=== PATIENT | female | born 1945 | race Caucasian/White ===

== ENCOUNTER 2020-04-20 07:20 | Outpatient (REF) | payer MEDICARE, SELFPAY ==
[2020-04-20 14:11] LABS: Alanine Aminotransferase 21 U/L (0-31); Albumin Level 4.4 g/dL (3.5-5.0); Alkaline Phosphatase 90 U/L (39-117); Anion Gap 11 (12-20); Aspartate Amino Transferase 18 U/L (5-31); Bilirubin Total 0.6 mg/dL (0.0-1.0); Blood Urea Nitrogen 21 mg/dL (9-16); Calcium 9.3 mg/dL (8.4-10.2); Carbon Dioxide 30 mmol/L (22-29); Chloride 105 mmol/L (96-108); Cholesterol 212 mg/dL; Estimated Glomerular Filt Rate > 60; Glucose Fasting 95 mg/dL (60-99); HDL Cholesterol 65 mg/dL; LDL Cholesterol Calculated 128 mg/dl; Potassium 4.5 mmol/l (3.3-5.1); Sodium 141 mmol/L (135-145); Total Protein 6.5 g/dL (6.5-8.0); Triglycerides 97 mg/dL
[2020-04-20 14:35] LABS: Vitamin D 25-OH Total 37.6 ng/mL (>30)
== END 2020-04-20 07:21 | disposition home or self-care (01) ==
LOC: HO.HMGCLDS 07:20
PROVIDERS: PCP Internal Medicine; Visit Provider Internal Medicine
DX: Z00.01 Encounter for general adult medical examination with abnormal findings (principal)
CPT/HCPCS: 80053; 80061; 82306

== ENCOUNTER 2020-07-25 09:50 | Outpatient (REF) | payer MEDICARE, SELFPAY | END 2020-07-25 09:51 | disposition home or self-care (01) | LOC: HO.LAB 09:50 | PROVIDERS: Visit Provider Nurse Practitioner Family | DX: J01.90 Acute sinusitis, unspecified (principal); Z20.822 Contact with and (suspected) exposure to COVID-19 | CPT/HCPCS: 36415; U0003; U0005 ==

== ENCOUNTER → 2020-10-19 10:20 | Outpatient (REF) | payer MEDICARE, SELFPAY ==
--- NOTE | 2020-10-19 10:32 | ECG_ITS ---
Test Reason : PREOP Blood Pressure : / mmHG Vent. Rate : 088 BPM Atrial Rate : 088 BPM P-R Int : 154 ms QRS Dur : 104 ms QT Int : 360 ms P-R-T Axes : 075 -29 035 degrees QTc Int : 435 ms Normal sinus rhythm Minimal voltage criteria for LVH, may be normal variant Borderline ECG No previous ECGs available Referred By: Luann Chapman Electronically Signed By:MARISA DUMONT
== END ==
LOC: HO.CARD 10:20
PROVIDERS: PCP Internal Medicine; Visit Provider Internal Medicine
DX: Z01.818 Encounter for other preprocedural examination (principal)
CPT/HCPCS: 93005; Q9957

== ENCOUNTER 2020-10-20 08:41 | Outpatient (REF) | payer MEDICARE, SELFPAY ==
[2020-10-20 09:11] LABS: MANUAL DIFF FLAG NO
[2020-10-20 09:18] LABS: Basophils Absolute Auto 0.1 X10*3/uL (0.0-0.2); Basophils Percent Auto 1.1 % (0-2); Eosinophils Absolute Auto 0.1 X10*3/uL (0.0-0.4); Eosinophils Percent Auto 1.3 % (0-4); Hematocrit 43.3 % (37-47); Hemoglobin 13.9 g/dl (12.0-16.0); Imm Gran Abs Auto 0.06 X10*3/uL (0.00-0.03); Imm Gran Pct Auto 0.8 % (0.0-0.4); Lymphocytes Absolute Auto 2.2 X10*3/uL (1.2-4.9); Lymphocytes Percent Auto 29.6 % (20-40); Mean Corpuscular HGB Conc 32.1 g/dl (31.0-35.0); Mean Corpuscular Hemoglobin 31.2 pg (27.0-33.0); Mean Corpuscular Volume 97.1 fL (80-98); Mean Platelet Volume 9.9 fL (9.4-12.3); Monocytes Absolute Auto 0.5 X10*3/uL (0.1-1.2); Monocytes Percent Auto 6.5 % (2-11); Neutrophils Absolute Auto 4.6 X10*3/uL (2.0-8.3); Neutrophils Percent Auto 60.7 % (45-73); Platelet Count 337 X10*3/uL (160-400); Red Blood Count 4.46 X10*6/uL (4.20-5.50); Red Cell Distribution Width 14.5 % (11.0-16.0); White Blood Count 7.6 X10*3/uL (4.8-10.8)
[2020-10-20 09:41] LABS: Anion Gap 10 (12-20); Blood Urea Nitrogen 20 mg/dL (9-16); Calcium 9.9 mg/dL (8.4-10.2); Carbon Dioxide 30 mmol/L (22-29); Chloride 106 mmol/L (96-108); Estimated Glomerular Filt Rate > 60; Glucose Fasting 95 mg/dL (60-99); Potassium 4.1 mmol/L (3.3-5.1); Sodium 142 mmol/L (135-145)
== END 2020-10-20 08:42 | disposition home or self-care (01) ==
LOC: HO.LAB 08:41
PROVIDERS: PCP Internal Medicine; Visit Provider Internal Medicine
DX: Z01.818 Encounter for other preprocedural examination (principal); I10 Essential (primary) hypertension
CPT/HCPCS: 36415; 80048; 85025

== ENCOUNTER 2021-03-14 12:53 | Outpatient (REF) | payer MEDICARE, SELFPAY ==
--- NOTE | ~2021-03-14 | MM_ITS ---
EXAMINATION: MM SCREENING DIGITAL BREAST TOMOSYNTHESIS, BILATERAL CLINICAL INFORMATION: Screening. Asymptomatic. The lifetime risk of breast cancer based on the Tyrer-Cuzick Model is 2%. COMPARISON: Mammography: 02/27/2020, 09/23/2018, 09/12/2017 TECHNIQUE: Digital breast tomosynthesis is performed in both the craniocaudal and mediolateral oblique views along with computer-aided detection (CAD). Synthesized 2D images are generated from the tomosynthesis. FINDINGS: There are scattered areas of fibroglandular density (ACR BI-RADS breast composition Category b). There are no significant masses, abnormal calcifications, or other abnormalities. There are incidental small bilateral intramammary nodes upper outer quadrants. The axilla and skin contours are unremarkable. No significant changes. MM/MM tomosynthesis screening BI IMPRESSION: No mammographic evidence of malignancy. ASSESSMENT: BI-RADS 2: Benign RECOMMENDATION: Routine annual mammography screening. This patient's information was entered into a reminder system with a target due date for their next mammogram.
== END 2021-03-14 12:54 | disposition home or self-care (01) ==
LOC: HO.MAMMO 12:53
PROVIDERS: PCP Internal Medicine; Visit Provider Internal Medicine
DX: Z12.31 Encounter for screening mammogram for malignant neoplasm of breast (principal)
CPT/HCPCS: 77063; 77067

== ENCOUNTER 2021-10-15 08:09 | Outpatient (REF) | payer MEDICARE, SELFPAY ==
[2021-10-15 08:26] LABS: MANUAL DIFF FLAG NO
[2021-10-15 08:53] LABS: Basophils Absolute Auto 0.1 X10*3/uL (0.0-0.2); Basophils Percent Auto 1.2 % (0-2); Eosinophils Absolute Auto 0.2 X10*3/uL (0.0-0.4); Eosinophils Percent Auto 2.6 % (0-4); Hematocrit 41.2 % (37.0-47.0); Hemoglobin 13.4 g/dl (12.0-16.0); Imm Gran Abs Auto 0.02 X10*3/uL (0.00-0.03); Imm Gran Pct Auto 0.3 % (0.0-0.4); Lymphocytes Absolute Auto 2.2 X10*3/uL (1.2-4.9); Lymphocytes Percent Auto 32.5 % (20-40); Mean Corpuscular HGB Conc 32.5 g/dl (31.0-35.0); Mean Corpuscular Hemoglobin 32.4 pg (27.0-33.0); Mean Corpuscular Volume 99.8 fL (80.0-98.0); Mean Platelet Volume 10.2 fL (9.4-12.3); Monocytes Absolute Auto 0.5 X10*3/uL (0.1-1.2); Monocytes Percent Auto 7.1 % (2-11); Neutrophils Absolute Auto 3.7 x10*3/uL (2.0-8.3); Neutrophils Percent Auto 56.3 % (45-73); Platelet Count 333 X10*3/uL (160-400); Red Blood Count 4.13 X10*6/uL (4.20-5.50); Red Cell Distribution Width 14.7 % (11.0-16.0); White Blood Count 6.6 X10*3/uL (4.8-10.8)
[2021-10-15 09:25] LABS: Alanine Aminotransferase 17 U/L (0-31); Anion Gap 10 (12-20); Aspartate Amino Transferase 14 U/L (5-31); Blood Urea Nitrogen 22 mg/dL (9-16); Calcium 10.4 mg/dL (8.4-10.2); Carbon Dioxide 29 mmol/L (22-29); Chloride 107 mmol/L (96-108); Cholesterol 198 mg/dL; Estimated Glomerular Filt Rate > 60; Glucose Fasting 93 mg/dL (60-99); HDL Cholesterol 56 mg/dL; LDL Cholesterol Calculated 123 mg/dl; Potassium 4.1 mmol/L (3.3-5.1); Sodium 142 mmol/L (135-145); Triglycerides 97 mg/dL
[2021-10-15 09:59] LABS: Vitamin D 25-OH Total 47.2 ng/mL (>30)
== END 2021-10-15 08:10 | disposition home or self-care (01) ==
LOC: HO.LAB 08:09
PROVIDERS: PCP Internal Medicine; Visit Provider Internal Medicine
DX: Z00.01 Encounter for general adult medical examination with abnormal findings (principal); N95.9 Unspecified menopausal and perimenopausal disorder; M85.852 Other specified disorders of bone density and structure, left thigh
CPT/HCPCS: 36415; 80048; 80061; 82306; 84450; 84460; 85025

== ENCOUNTER → 2022-01-31 09:26 | Outpatient (BNVA) | payer MEDICARE, SELFPAY | PROVIDERS: PCP Internal Medicine; Referring Provider Internal Medicine; Visit Provider Internal Medicine Cardiovascular Disease | DX: R07.9 Chest pain, unspecified (principal) | CPT/HCPCS: 99202 ==

== ENCOUNTER → 2022-02-06 10:09 | Outpatient (REF) | payer MEDICARE, SELFPAY ==
--- NOTE | 2022-02-06 10:12 | CA_ITS ---
Transthoracic Echocardiogram Patient (Last, First, Middle): Jewell Charles E Gender: Female Date of : 1945 Age: 76 Procedure Date: 02/06/2022 Procedure Type: Transthoracic Echocardiogram Location: OP Height: 154.94 cm Weight: 63.5 kg BSA: 1.62 m2 Heart Rate: bpm BP: 110 / 76 mmHg Administrator: TO Referring MD: Ruddy Trammell MD Symptoms: R07.9 - Chest pain, unspecified Study Quality: Adequate ECG Rhythm: Sinus Conclusions: - The left ventricular systolic function is mildly decreased. The calculated ejection fraction is 48% by biplane method. - There is mild global hypokinesis. - The mid inferoseptal segment is hypokinetic. - No obvious valvular pathology seen on this study. Findings Left Ventricle Normal left ventricular cavity size. There is normal left ventricular wall thickness. The left ventricular systolic function is mildly decreased. The calculated ejection fraction is 48% by biplane method. There is mild global hypokinesis. Diastolic function is normal for age. Wall Motion Rest Echo Findings The mid inferoseptal segment is hypokinetic. Right Ventricle Normal right ventricular cavity size and systolic function. Atria Both atria are normal in size. Aortic Valve There is a normal trileaflet aortic valve. There is no aortic valve stenosis. There is no aortic valve regurgitation. Mitral Valve The mitral valve appears normal. There is trace mitral valve regurgitation. There is no mitral valve stenosis. Pulmonic Valve The pulmonic valve is likely normal. Tricuspid Valve Normal tricuspid valve structure. There is trace tricuspid valve regurgitation. The pulmonary artery systolic pressure is normal. Great Vessels The aortic annulus, sinuses of valsalva, and asc aorta are normal in size. Venous The inferior vena cava is normal in size and collapses greater than 50% with inspiration. Pericardium/Pleural There is no evidence of pericardial effusion. Prior Study Comparison No prior study available for comparison. Recommendations, Care & Conclusions No obvious valvular pathology seen on this study. Measurements 2D Linear Measurements IVSd: 1.02 0.6-0.9/0.6-1.0 cm LVIDd: 4.55 3.9-5.3/4.2-5.9 cm LVIDd Index: 2.81 2.4-3.2/2.2-3.1 cm/m2 LVIDs: 3.39 2.0-3.6 cm LVPWd: 0.92 0.7-1.1 cm LA Diam: 3.00 2.7-3.8/3.0-4.0 cm LAIDs Index: 1.85 1.5-2.3 cm/m2 LV Mass: 186.72 67-162/88-224 g LV Mass Index: 115.26 43-95/49-115 g/m2 LVOT Diam: 2.20 3.0+(-)1.3 cm 2D Systolic Function EF 4C: 45.90 >55% EF 2C: 50.60 >55% EF BiP: 48.30 >55% Mitral Valve MV Pk E: 0.47 MV PK A: 0.76 MV Decel Time: 195.00 E/A: 0.60 E'Lateral: 6.64 E'Medial: 5.33 E/E' Med: 8.80 E/E' Lat: 7.10 PHT: 57.00 MVA PHT: 3.86 Decel Fisher: 2.42 Aortic Valve AoV Pk Portillo: 1.10 AoV Mn Portillo: 0.80 AoV VTI: 0.26 AoV Pk Grad: 5.00 Aov Mn Grad: 3.00 ELADIO Cont.VTI: 2.59 LVOT LVOT Pk Portillo: 0.76 LVOT Mn Portillo: 0.51 LVOT VTI: 0.18 LVOT Pk Grad: 2.00 LVOT Mn Grad: 1.00 LVOT Diam: 2.20 LVOT Area: 3.80 Diastolic Function MV Pk E: 0.47 MV Pk A: 0.76 E/A: 0.60 E'Medial: 5.33 E/E' Med: 8.80 E' Laterial: 6.64 E/E' Lat: 7.10 Right Ventricle TAPSE (mm): 20.00 TVS' Portillo: 10.20 Tricuspid Valve TR Pk Portillo: 2.31 TR Pk Grad: 21.00 RA Press: 3.00 Great Vessels Aorta Sinus of Valsalva: 3.14 2.0-3.[address] Ridge: 2.74 1.7-3.4 cm Ao Asc: 3.20 2.1-3.4 cm Updated in Other Vendor System with Status of Final Yousuf Pond MD electronically signed on 02/07/2022 12:28:31 PM with status of Final
== END ==
LOC: HO.CARD 10:09
PROVIDERS: PCP Internal Medicine; Visit Provider Internal Medicine Cardiovascular Disease
DX: R07.9 Chest pain, unspecified (principal)
CPT/HCPCS: 93306

== ENCOUNTER → 2022-02-18 09:11 | Outpatient (REF) | payer MEDICARE, SELFPAY ==
--- NOTE | ~2022-02-18 | NM_ITS ---
Lexiscan Myocardial perfusion study Indication: Chest pain, assess for coronary disease and ischemia Technique: The patient was brought in for a Lexiscan perfusion study on 02/18/2022 and was injected 0.4 mg of Lexiscan intravenously. Within a minute of this injection 25 mCi of sestamibi was given intravenously. Images were obtained using the SPECT gamma camera interlaced with the gating device. Images were obtained in supine position. Resting perfusion study was performed on 02/19/2022. Patient was administered 25 mCi of sestamibi intravenously at rest. Images were then obtained in supine position. Total DLP 74mGy-cm. Images were processed with the software and compared side to side in short axis, horizontal long axis and vertical long axis views. Findings: Raw acquisition reviewed. The stress perfusion study showed mildly diminished tracer uptake in the distal part of anteroseptal wall. There is improvement with CT attenuation correction and hence could be from soft tissue attenuation artifact. The gated study shows normal LV systolic function with calculated LVEF of 51%. LV cavity is normal in size. The gated study shows reduced thickening in the distal anteroseptal wall. Resting study shows diminished tracer uptake in the distal inferolateral wall. However there is also adjacent subdiaphragmatic tracer uptake. There is improvement with CT attenuation correction and hence could all be from diaphragmatic attenuation artifact. Gating at rest reveals ejection fraction at 47%; reduced contractility in the distal inferolateral wall. The findings are consistent with mild reversible distal anteroseptal defect. Possibly artifactual. NM/NM elaine perf SPECT rest & str Impression: 1. Myocardial perfusion imaging study shows small reversible distal anteroseptal defect. Probably artifactual. Less likely from small area of ischemia. 2. Gated LVEF is 51% during stress; 47% during rest. Correlate with echocardiogram. 3. Transient ischemic dilatation not present. EKG component of the test reported separately.
--- NOTE | 2022-02-18 09:13 | CA_ITS ---
Acquisition Time: 2022-02-18 09:36:41 Total Exercise Time: 00:02:00 Test Indications: CP Medications: SEE CHART Protocol: LEXISCAN Max HR: 117 BPM 81% of Pred: 143 BPM Max BP: 134/080 mmHG Max Work Load: 1.0 METS Pharmacological stress test with Lexiscan injection, while sitting and kicking her legs, without anginal symptoms, with isolated PVC, with normotensive response to injection, with nondiagnostic EKG for ischemia. In recovery she reported feeling odd in her head and was treated with Aminophylline 75mg IVP to reverse Lexiscan with resolution of symptom. Nuclear images pending. Test reviewed with Dr Mccabe. Referred By: Ruddy Trammell Overread By: ALVARO ANAYA
== END ==
LOC: HO.CARD 09:11
PROVIDERS: PCP Internal Medicine; Visit Provider Internal Medicine Cardiovascular Disease
DX: R07.9 Chest pain, unspecified (principal)
CPT/HCPCS: 78452; 93017; A9500; J0280; J2785

== ENCOUNTER 2022-02-24 09:52 | Outpatient (REF) | payer MEDICARE, SELFPAY ==
[2022-02-24 11:22] LABS: Anion Gap 12 (12-20); Blood Urea Nitrogen 22 mg/dL (9-16); Carbon Dioxide 27 mmol/L (22-29); Chloride 105 mmol/L (96-108); Estimated Glomerular Filt Rate > 60; Glucose Random 93 mg/dL (60-115); Potassium 4.2 mmol/L (3.3-5.1); Sodium 140 mmol/L (135-145)
[2022-02-26 17:36] LABS: Calcium, Ionized 5.6 mg/dL (4.8-5.6)
== END 2022-02-24 09:53 | disposition home or self-care (01) ==
LOC: HO.LAB 09:52
PROVIDERS: PCP Internal Medicine; Visit Provider Internal Medicine Cardiovascular Disease
DX: R07.9 Chest pain, unspecified (principal); E83.52 Hypercalcemia
CPT/HCPCS: 36415; 80048; 82330

== ENCOUNTER 2022-03-20 12:48 | Outpatient (REF) | payer MEDICARE, SELFPAY ==
--- NOTE | ~2022-03-20 | MM_ITS ---
EXAMINATION: MM SCREENING DIGITAL BREAST TOMOSYNTHESIS, BILATERAL CLINICAL INFORMATION: Screening. Asymptomatic. The lifetime risk of breast cancer based on the Tyrer-Cuzick Model is 2%. COMPARISON: Mammography: 03/14/2021, 02/27/2020, 09/23/2018 TECHNIQUE: Digital breast tomosynthesis is performed in both the craniocaudal and mediolateral oblique views along with computer-aided detection (CAD). Synthesized 2D images are generated from the tomosynthesis. FINDINGS: There are scattered areas of fibroglandular density (ACR BI-RADS breast composition Category b). There are no significant masses, abnormal calcifications, or other abnormalities. Parenchymal pattern is similar to prior studies. There is no developing density or architectural abnormality. The axilla and skin contours are unremarkable. No significant changes. MM/MM tomosynthesis screening BI IMPRESSION: No mammographic evidence of malignancy. ASSESSMENT: BI-RADS 1: Negative RECOMMENDATION: Routine annual mammography screening. This patient's information was entered into a reminder system with a target due date for their next mammogram.
--- NOTE | ~2022-03-20 | MM_ITS ---
EXAMINATION: BONE DENSITOMETRY CLINICAL INDICATION: Osteopenia. COMPARISON: Previous BD dated 09/10/2017 and baseline BD dated 10/22/2007. TECHNIQUE: Using a [employer] DXA System (software version: 13.1) manufactured by [employer], dual-energy x-ray absorptiometry was performed of the lumbar spine and left hip. The images are of good technical quality. Summary results are attached. FINDINGS: AP SPINE L1-L4: Current: BMD 1.063 g/cm2, Z-score 0.9, T-score -1.0, normal, 3.9% decrease from previous, 6.3% decrease from baseline (<5% change is not significant). Prior: BMD 1.106 g/cm2. Baseline: BMD 1.134 g/cm2. LEFT FEMUR, NECK: Current: BMD 0.503 g/cm2, Z-score -1.8, T-score -3.8, osteoporosis. Prior: BMD 0.706 g/cm2. Baseline: BMD 0.692 g/cm2. LEFT FEMUR, TOTAL: Current: BMD 0.555 g/cm2, Z-score -1.7, T-score -3.6, osteoporosis, 27.1% decrease from previous, 29.4% decrease from baseline (<5% change is not significant). Prior: BMD 0.761 g/cm2. Baseline: BMD 0.786 g/cm2. IDENTIFIED RISK FACTORS: Early menopause, height loss, history of fracture (adult), hysterectomy, bilateral oophorectomy, low calcium intake, recurrent falls, rheumatoid arthritis, secondary osteoporosis. HISTORY OF FRACTURE: Femur. MEDICATIONS: Calcium, vitamin D. MM/XR DEXA axial skeleton IMPRESSION: 1. DIAGNOSIS: Osteoporosis based on the lowest T-score value of -3.8 in the femoral neck applying World Health Organization criteria. 2. 10-YEAR FRACTURE RISK PREDICTION, FRAX: According to the guidelines, FRAX calculation should only be performed on patients in the osteopenia bone density category. Therefore, FRAX was not performed on this patient. 3. Treatment Recommendations: NOF guidelines recommend consideration for treatment in postmenopausal women and men age 50 and older presenting with the following: -A hip or vertebral (clinical or morphometric) fracture. -T-score less than or equal to -2.5 at the femoral neck or spine after appropriate evaluation to exclude secondary causes. -Low bone mass at the hip or spine and a 10-year fracture probability by FRAX of greater than or equal to 3% for hip fracture or greater than or equal to 20% for major osteoporotic fracture based on the [place] adapted WHO algorithm. 4. Other Recommendations: All treatment decisions require clinical judgment and consideration of individual patient factors, including patient preferences, comorbidities, previous drug use, risk factors not captured in the FRAX model (e.g. frailty, falls, vitamin D deficiency, increased bone turnover, interval significant decline in bone density) and possible under or overestimation of fracture risk by FRAX. Additional medical evaluation for secondary cause of low bone mineral density may be appropriate. FUTURE SCAN RECOMMENDATION: People with diagnosed cases of osteoporosis or at high risk for fracture should have regular bone mineral density tests. For patients eligible for Medicare, routine testing is allowed once every 2 years. The testing frequency can be increased to one year for patients who have rapidly progressing disease, those who are receiving or discontinuing medical therapy to restore bone mass, or have additional risk factors.
== END 2022-03-20 12:49 | disposition home or self-care (01) ==
LOC: HO.MAMMO 12:48
PROVIDERS: Visit Provider Internal Medicine
DX: Z12.31 Encounter for screening mammogram for malignant neoplasm of breast (principal); Z13.820 Encounter for screening for osteoporosis; M85.852 Other specified disorders of bone density and structure, left thigh; Z78.0 Asymptomatic menopausal state
CPT/HCPCS: 77063; 77067; 77080

== ENCOUNTER 2022-03-20 13:03 | Outpatient (REF) | payer MEDICARE, SELFPAY | END 2022-03-20 13:04 | disposition home or self-care (01) | LOC: HO.MAMMO 13:03 | PROVIDERS: Visit Provider Internal Medicine | DX: Z13.89 Encounter for screening for other disorder (principal) ==

== ENCOUNTER → 2022-04-08 11:02 | Outpatient (BNVA) | payer MEDICARE, SELFPAY | PROVIDERS: PCP Internal Medicine; Visit Provider Student in an Organized Health Care Education/Training Program | DX: M15.9 Polyosteoarthritis, unspecified (principal); M80.80XD Other osteoporosis with current pathological fracture, unspecified site, subsequent encounter for fracture with routine healing | CPT/HCPCS: 99202 ==

== ENCOUNTER → 2022-04-15 15:31 | Outpatient (BNVA) | payer MEDICARE, SELFPAY | PROVIDERS: PCP Internal Medicine; Visit Provider Internal Medicine Endocrinology, Diabetes & Metabolism | DX: M81.0 Age-related osteoporosis without current pathological fracture (principal) | CPT/HCPCS: 99202 ==

== ENCOUNTER → 2022-04-16 11:31 | Outpatient (BNVA) | payer MEDICARE, SELFPAY | PROVIDERS: PCP Internal Medicine; Visit Provider Internal Medicine Cardiovascular Disease | DX: R07.9 Chest pain, unspecified (principal) | CPT/HCPCS: 99212 ==

== ENCOUNTER 2022-10-09 14:37 | Outpatient (REF) | payer MEDICARE, SELFPAY ==
[2022-10-09 16:02] LABS: Phosphorus 3.2 mg/dL (2.7-4.5)
[2022-10-09 16:21] LABS: Free T4 (Free Thyroxine) 0.87 ng/dL (0.71-1.85); Thyroid Stimulating Hormone 0.54 uIU/mL (0.32-4.0)
[2022-10-16 23:18] LABS: Prot Elec - Albumin 4.1 g/dL (3.8-4.8); Prot Elec - Alpha1 0.3 g/dL (0.2-0.3); Prot Elec - Alpha2 0.7 g/dL (0.5-0.9); Prot Elec - Beta 1 0.4 g/dL (0.4-0.6); Prot Elec - Beta 2 0.2 g/dL (0.2-0.5); Prot Elec - Gamma 0.7 g/dL (0.8-1.7); Prot Elec - Total Protein 6.3 g/dL (6.1-8.1)
== END 2022-10-09 14:38 | disposition home or self-care (01) ==
LOC: HO.LAB 14:37
PROVIDERS: PCP Internal Medicine; Visit Provider Internal Medicine Endocrinology, Diabetes & Metabolism
DX: M81.0 Age-related osteoporosis without current pathological fracture (principal); R53.83 Other fatigue
CPT/HCPCS: 84100; 84165; 84439; 84443; 86335

== ENCOUNTER 2022-10-15 12:49 | Outpatient (REF) | payer MEDICARE, SELFPAY ==
[2022-10-15 14:12] LABS: Creatinine, mg/dL 71.34
[2022-10-15 15:13] LABS: Creatinine, 24Hr Urine 0.6 G/Day (1.0-2.0); Total Volume 24 Hour Urine 825 mL
[2022-10-20 16:39] LABS: Calcium, 24 Hr Urine 221 mg/24 h; Calcium/Creatinine Ratio 377 mg/g creat (30-275); Creatinine 24Hr Urine 0.59 g/24 h (0.50-2.15)
== END 2022-10-15 12:50 | disposition home or self-care (01) ==
LOC: HO.LNP 12:49
PROVIDERS: Visit Provider Internal Medicine Endocrinology, Diabetes & Metabolism
DX: M81.0 Age-related osteoporosis without current pathological fracture (principal)
CPT/HCPCS: 82340; 82570

== ENCOUNTER 2022-11-24 07:23 | Day surgery (SDC) | payer MEDICARE, SELFPAY ==
[2022-11-19 12:58] VITALS: BMI 24.5
--- NOTE | 2022-11-21 08:00 | MHC.SHP ---
Pre-Procedural Eval Section A Date of Service: 11/21/22 The patient is an INPATIENT: No Changes since office visit: No Cold of Flu in the past 2 weeks, No New Medical Problems, No Changes in Medication and No Patient answered all questions The History & Physical has been completed within 30 days and I have reviewed it.: Yes Section B Chief Complaint: Age-related nuclear cataract, right eye Allergies: Allergies Allergy/AdvReac Type Severity Reaction Status Date / Time No Known Allergies Allergy Verified 11/19/22 13:33 [No Known Allergies*] Plan Diagnosis/Plan: Unchanged I have reviewed the history and physical and performed a pertinent physical examination on my patient. No changes have occurred unless specified. Time Spent With Patient Time: Total time managing care of this patient today ____ minutes.
--- NOTE | 2022-11-21 09:02 | HO.ANESPROP2 ---
Documented by User: Blanka Huynh NP 11/21/22 09:03 HPI - Anesthesia Eval Consult details Narrative: 77yo F for RightRight Cataract Multifocal with IOL Insertion PCP cleared No previous cataract on record PMFSH Active Problems Active Problems: All Active Problems (Updated 11/19/22 @ 13:43 by Luann Chapman MD) Hemorrhoids (Acute) Osteoporosis with fracture (Acute) Generalized osteoarthritis (Acute) Urge incontinence of urine (Acute) Diverticulosis (Acute) Varicose vein of leg (Acute) Past Medical History Medical History (Updated 11/19/22 @ 13:43 by Luann Chapman MD) Diverticulosis Femoral distal fracture Hemorrhoids Osteoarthritis Polyarthralgia Trigger finger Urge incontinence of urine Varicose vein of leg Family History Family History Father Stomach cancer Mother No problems noted. Sister Ovarian cancer Surgical History Surgical History History of appendectomy History of arthroscopy of right knee History of bunionectomy History of surgery History of surgery on lower extremity History of tonsillectomy History of total hysterectomy History of total right knee replacement (TKR) Social History Social History Household Members: None Housing: House Are you a primary body care manager to a significant other at home: No Do you presently have visiting nurse or other home services: No Alcohol intake: current Alcohol intake frequency: holidays/special occasions only Patient Tobacco Use Status: Former Tobacco user Quit Date: 40 yrs ago Tobacco use type: Cigarette e-Cigarette/Vaping Use: Never Used Second Hand Smoke Exposure: No Use of substances other than those prescribed or required for medical reasons: No Have you been hit, kicked, punched, or otherwise hurt by someone within the past year? If so, by whom?: No Are you DNR?: No Advance Directives: No Advance Directives Information Provided: Yes Advance Directives on File: No Recently lost weight without trying: No Eating poorly because of decreased appetite: No Nutrition Risks: No Nutritional Risk Poor oral hygiene: No (Full Dentures) service: No Current occupational status: retired Current occupation: Payroll Cognitive needs: No Hearing needs: No Vision needs: Yes Meds Allergies Allergy/AdvReac Type Severity Reaction Status Date / Time No Known Allergies Allergy Verified 11/19/22 13:33 [No Known Allergies*] Home Medications Medication Instructions Recorded Confirmed Last Taken Type acetaminophen 650 mg 650 mg PO Q8H 04/18/20 11/19/22 11/24/22 History tablet,extended release (Tylenol Arthritis Pain) calcium carbonate 600 mg calcium 600 mg PO DAILY 04/18/20 11/19/22 Unknown History (1,500 mg) tablet (Calcium) multivit with 1 tab PO DAILY 04/18/20 11/19/22 Unknown History gwvklgln-[id number]-YO-lutein 8 mg iron-400 mcg-300 mcg tablet (Centrum Silver Women) ascorbic acid (vitamin C) 500 mg 500 mg PO DAILY 01/31/22 11/19/22 Unknown History capsule cholecalciferol (vitamin D3) 25 25 mcg PO DAILY 04/15/22 11/19/22 Unknown History mcg (1,000 unit) capsule diclofenac sodium 1 % topical gel g topical 11/17/22 Unknown History meloxicam 15 mg tablet 15 mg PO DAILY 11/17/22 11/19/22 Unknown History Exam Exam Date and Time: November 21, 2022 09 Height,Weight and Vital Signs: Height 5 ft 2 in Weight 60.781 kg Assessment and Plan Assessment Anesthesia Assessment: Chart Reviewed Documented by User: Geraldine Sierra MD 11/24/22 09:20 [facility] Past Medical History Medical History (Updated 11/19/22 @ 13:43 by Luann Chapman MD) Diverticulosis Femoral distal fracture Hemorrhoids Osteoarthritis Polyarthralgia Trigger finger Urge incontinence of urine Varicose vein of leg Family History Family History Father Stomach cancer Mother No problems noted. Sister Ovarian cancer Family history of problems with anesthesia: No Surgical History Surgical History History of appendectomy History of arthroscopy of right knee History of bunionectomy History of surgery History of surgery on lower extremity History of tonsillectomy History of total hysterectomy History of total right knee replacement (TKR) History of Problems with Anesthesia: No Social History Social History Household Members: None Housing: House Are you a primary body care manager to a significant other at home: No Do you presently have visiting nurse or other home services: No Alcohol intake: current Alcohol intake frequency: holidays/special occasions only Patient Tobacco Use Status: Former Tobacco user Quit Date: 40 yrs ago Tobacco use type: Cigarette e-Cigarette/Vaping Use: Never Used Second Hand Smoke Exposure: No Use of substances other than those prescribed or required for medical reasons: No Have you been hit, kicked, punched, or otherwise hurt by someone within the past year? If so, by whom?: No Are you DNR?: No Advance Directives: No Advance Directives Information Provided: Yes Advance Directives on File: No Recently lost weight without trying: No Eating poorly because of decreased appetite: No Nutrition Risks: No Nutritional Risk Poor oral hygiene: No (Full Dentures) service: No Current occupational status: retired Current occupation: Payroll Cognitive needs: No Hearing needs: No Vision needs: Yes Meds Allergies Allergy/AdvReac Type Severity Reaction Status Date / Time No Known Allergies Allergy Verified 11/19/22 13:33 [No Known Allergies*] Home Medications Medication Instructions Recorded Confirmed Last Taken Type acetaminophen 650 mg 650 mg PO Q8H 04/18/20 11/19/22 11/24/22 History tablet,extended release (Tylenol Arthritis Pain) calcium carbonate 600 mg calcium 600 mg PO DAILY 04/18/20 11/19/22 Unknown History (1,500 mg) tablet (Calcium) multivit with 1 tab PO DAILY 04/18/20 11/19/22 Unknown History tsfbkviy-qumu-AJ-lutein 8 mg iron-400 mcg-300 mcg tablet (Centrum Silver Women) ascorbic acid (vitamin C) 500 mg 500 mg PO DAILY 01/31/22 11/19/22 Unknown History capsule cholecalciferol (vitamin D3) 25 25 mcg PO DAILY 04/15/22 11/19/22 Unknown History mcg (1,000 unit) capsule diclofenac sodium 1 % topical gel g topical 11/17/22 Unknown History meloxicam 15 mg tablet 15 mg PO DAILY 11/17/22 11/19/22 Unknown History Exam Airway Mallampati Class: II (lower implants) TM Dist: >3cm Denture: Upper Heart: rrr Lungs: cya Assessment and Plan Assessment Anesthesia Assessment: Anesthesia Plan Discussed Final Anesthetic Review Family History of Problems with Anesthesia: No History of Problems with Anesthesia: No NPO: Yes ASA Class: II Final Preanesthetic Review: No Changes in Pt Med Stat, Meds/Allgs Chart Reviewed and Consent Obtained/Reviewed Patient Risk: Intermediate Procedure Risk: Intermediate Anesthetic Plan Anesthetic Plan: MAC: Disposition: Standard PACU
[2022-11-24 08:04] VITALS: BP 151/78; PULSE 85; RESP 18; TEMP 36.2; O2SAT 95
[2022-11-24] MEDS: Lactated Ringers 500 ML 50 ML IV (08:17)
[2022-11-24] MEDS: Tetracaine HCl/PF 0.5% Oph Sol 4 ML DROPS 1 DROP EYE-RIGHT (08:18)
[2022-11-24] MEDS: Phenylephrine HCL 2.5% Oph SoL 2 ML BOTTLE 1 DROP EYE-RIGHT ×3 (08:18→08:24)
[2022-11-24] MEDS: Ketorolac Tromethamine 0.5% Op 5 ML DROPS 1 DROP EYE-RIGHT ×3 (08:19→08:25)
[2022-11-24] MEDS: Cyclopentolate 1 % Ophth Sol 2 ML DRPBTL 1 DROP EYE-RIGHT ×3 (08:19→08:25)
[2022-11-24] MEDS: Tropicamide 1 % Ophth Sol 3 ML BTL 1 DROP EYE-RIGHT ×3 (08:22→08:25)
--- NOTE | 2022-11-24 09:09 | HO.PNOPHT ---
Ophthalmology Procedure Procedure Date of Service: 11/24/22 Ophthalmology Viscoelastic: Healabhijeet Duet Dual Pack Pro Ophthalmology Lenses: TECNIS [id number] (22.5) Procedure Notes: PREOPERATIVE DIAGNOSIS: Decreased visual acuity right eye secondary to cataract POSTOPERATIVE DIAGNOSIS: Same PROCEDURE: Right cataract extraction with intraocular lens insertion SURGEON: Bebo Keene M.D. ANESTHESIA: Topical/MAC ESTIMATED BLOOD LOSS: None COMPLICATIONS: None After obtaining informed consent, the patient was brought to the operating room suite and placed in the supine position. After adequate sedation per anesthesia, topical drops of Tetracaine were given to the right eye. The eye was then prepped and draped in the usual sterile fashion. The operating room microscope was then positioned over the operative eye and a lid speculum placed. A paracentesis was created. Viscoelastic was then instilled into the anterior chamber. A three plane incision was then created temporally, utilizing a 2.85 mm keratome. Capsulotomy forceps were then utilized to create a circular tear capsulotomy. Hydrodissection and hydrodelineation were carried out until adequate mobilization of the nucleus occurred. Phacoemulsification was then utilized to remove the dense central nucleus followed by removal of the cortical material utilizing the automated aspiration irrigation unit. Viscoelastic was instilled into the posterior capsular bag followed by placement of a posterior chamber intraocular lens without difficulty. The residual Viscoelastic was then removed utilizing the automated IA machine. The wound was checked and found to be watertight. The patient tolerated the procedure well and the lid speculum was removed. Intracameral injection of Vigamox 0.1 mL followed by a subtenon injection of Kenalog-40 0.2 mL were administered. The patient will be seen in the a.m.
[2022-11-24 09:34] VITALS: BP 161/64; PULSE 81; RESP 18; TEMP 36.1; O2SAT 97
== END 2022-11-24 09:44 | disposition home or self-care (01) ==
PROVIDERS: PCP Internal Medicine; Visit Provider Ophthalmology
PROC: (CPT 66985; principal; 2022-11-24 10:00)
DX: H25.11 Age-related nuclear cataract, right eye (principal); H52.4 Presbyopia; H40.013 Open angle with borderline findings, low risk, bilateral; H18.413 Arcus senilis, bilateral; H35.09 Other intraretinal microvascular abnormalities; M80.051A Age-related osteoporosis with current pathological fracture, right femur, initial encounter for fracture; M15.9 Polyosteoarthritis, unspecified; N39.41 Urge incontinence; Z79.899 Other long term (current) drug therapy; Z96.651 Presence of right artificial knee joint; Z87.891 Personal history of nicotine dependence
CPT/HCPCS: 66984; J2250; J3301; V2632

== ENCOUNTER 2022-12-02 06:00 | Outpatient (REF) | payer MEDICARE, SELFPAY ==
[2022-12-04 11:21] LABS: Creatinine, mg/dL 47.69; Creatinine, mg/dL 47.99
[2022-12-04 12:12] LABS: Creatinine, 24Hr Urine 0.6 G/Day (1.0-2.0); Sodium 24 Hr Urine 121.5 mmol/Day (40-220); Total Volume 24 Hour Urine 1350 mL
[2022-12-04 12:13] LABS: Creatinine, 24Hr Urine 0.6 G/Day (1.0-2.0); Total Volume 24 Hour Urine 1350 mL
[2022-12-06 17:08] LABS: Calcium, 24 Hr Urine 197 mg/24 h; Calcium/Creatinine Ratio 292 mg/g creat (30-275); Creatinine 24Hr Urine 0.68 g/24 h (0.50-2.15)
== END 2022-12-02 06:01 | disposition home or self-care (01) ==
LOC: HO.LNP 06:00
PROVIDERS: Visit Provider Internal Medicine Endocrinology, Diabetes & Metabolism
DX: M80.051A Age-related osteoporosis with current pathological fracture, right femur, initial encounter for fracture (principal)
CPT/HCPCS: 82340; 82570; 84300

== ENCOUNTER 2022-12-08 06:42 | Day surgery (SDC) | payer MEDICARE, SELFPAY ==
[2022-11-19 13:03] VITALS: BMI 24.5
--- NOTE | 2022-12-04 14:45 | P.CONAN_ITS ---
HPI - Anesthesia Eval Consult details Narrative: 77yo F for Left Cataract Multifocal with IOL Insertion PCP cleared Right eye 11/24/22 with MAC: midaz 1 PMFSH Active Problems Active Problems: All Active Problems (Updated 11/19/22 @ 13:43 by Luann Chapman MD) Hemorrhoids (Acute) Osteoporosis with fracture (Acute) Generalized osteoarthritis (Acute) Urge incontinence of urine (Acute) Diverticulosis (Acute) Varicose vein of leg (Acute) Past Medical History Medical History (Updated 11/19/22 @ 13:43 by Luann Chapman MD) Diverticulosis Femoral distal fracture Hemorrhoids Osteoarthritis Polyarthralgia Trigger finger Urge incontinence of urine Varicose vein of leg Family History Family History Father Stomach cancer Mother No problems noted. Sister Ovarian cancer Family history of problems with anesthesia: No Surgical History Surgical History History of appendectomy History of arthroscopy of right knee History of bunionectomy History of surgery History of surgery on lower extremity History of tonsillectomy History of total hysterectomy History of total right knee replacement (TKR) History of Problems with Anesthesia: No Social History Social History Household Members: None Housing: House Are you a primary associate director career services to a significant other at home: No Do you presently have visiting nurse or other home services: No Alcohol intake: current Alcohol intake frequency: holidays/special occasions only Patient Tobacco Use Status: Former Tobacco user Quit Date: 40 yrs ago Tobacco use type: Cigarette e-Cigarette/Vaping Use: Never Used Second Hand Smoke Exposure: No Use of substances other than those prescribed or required for medical reasons: No Have you been hit, kicked, punched, or otherwise hurt by someone within the past year? If so, by whom?: No Are you DNR?: No Advance Directives: No Advance Directives Information Provided: Yes Advance Directives on File: No Recently lost weight without trying: No Eating poorly because of decreased appetite: No Nutrition Risks: No Nutritional Risk Poor oral hygiene: No (Full dentures) service: No Current occupational status: retired Current occupation: Payroll Cognitive needs: No Hearing needs: No Vision needs: Yes Meds Allergies Allergy/AdvReac Type Severity Reaction Status Date / Time No Known Allergies Allergy Verified 11/19/22 13:33 [No Known Allergies*] Home Medications Medication Instructions Recorded Confirmed Last Taken Type acetaminophen 650 mg 650 mg PO Q8H 04/18/20 11/19/22 12/08/22 History tablet,extended release (Tylenol Arthritis Pain) calcium carbonate 600 mg calcium 600 mg PO DAILY 04/18/20 11/19/22 Unknown History (1,500 mg) tablet (Calcium) multivit with 1 tab PO DAILY 04/18/20 11/19/22 Unknown History ucvxqzvf-uzsk-OT-lutein 8 mg iron-400 mcg-300 mcg tablet (Centrum Silver Women) ascorbic acid (vitamin C) 500 mg 500 mg PO DAILY 01/31/22 11/19/22 Unknown History capsule cholecalciferol (vitamin D3) 25 25 mcg PO DAILY 04/15/22 11/19/22 Unknown History mcg (1,000 unit) capsule diclofenac sodium 1 % topical gel g topical 11/17/22 Unknown History meloxicam 15 mg tablet 15 mg PO DAILY 11/17/22 11/19/22 Unknown History Exam Exam Date and Time: December 04, 2022 1445 Height,Weight and Vital Signs: Height 5 ft 2 in Weight 60.781 kg Assessment and Plan Assessment Anesthesia Assessment: Chart Reviewed Final Anesthetic Review Family History of Problems with Anesthesia: No History of Problems with Anesthesia: No
--- NOTE | 2022-12-05 08:25 | MHC.SHP ---
Pre-Procedural Eval Section A Date of Service: 12/05/22 The patient is an INPATIENT: No Changes since office visit: No Cold of Flu in the past 2 weeks, No New Medical Problems, No Changes in Medication and No Patient answered all questions The History & Physical has been completed within 30 days and I have reviewed it.: Yes Section B Chief Complaint: Age-related nuclear cataract, left eye Allergies: Allergies Allergy/AdvReac Type Severity Reaction Status Date / Time No Known Allergies Allergy Verified 11/19/22 13:33 [No Known Allergies*] Plan Diagnosis/Plan: Unchanged I have reviewed the history and physical and performed a pertinent physical examination on my patient. No changes have occurred unless specified. Time Spent With Patient Time: Total time managing care of this patient today ____ minutes.
[2022-12-08 06:59] VITALS: BP 161/105; PULSE 91; RESP 20; TEMP 35.8; O2SAT 96
[2022-12-08 07:05] VITALS: BP 159/83
[2022-12-08] MEDS: Lactated Ringers 500 ML 50 ML IV (07:05)
[2022-12-08] MEDS: Tetracaine HCl/PF 0.5% Oph Sol 4 ML DROPS 1 DROP EYE-LEFT (07:06)
[2022-12-08] MEDS: Cyclopentolate 1 % Ophth Sol 2 ML DRPBTL 1 DROP EYE-LEFT ×3 (07:06→07:09)
[2022-12-08] MEDS: Tropicamide 1 % Ophth Sol 3 ML BTL 1 DROP EYE-LEFT ×3 (07:06→07:08)
[2022-12-08] MEDS: Ketorolac Tromethamine 0.5% Op 5 ML DROPS 1 DROP EYE-LEFT ×3 (07:07→07:09)
[2022-12-08] MEDS: Phenylephrine HCL 2.5% Oph SoL 2 ML BOTTLE 1 DROP EYE-LEFT ×3 (07:07→07:09)
--- NOTE | 2022-12-08 08:16 | HO.PNOPHT ---
Ophthalmology Procedure Procedure Date of Service: 12/08/22 Ophthalmology Viscoelastic: Healabhijeet Nyet Dual Pack Pro Ophthalmology Lenses: TECSHAHRIAR [id number] (23) Procedure Notes: PREOPERATIVE DIAGNOSIS: Decreased visual acuity left eye secondary to cataract POSTOPERATIVE DIAGNOSIS: Same PROCEDURE: Left cataract extraction with intraocular lens insertion SURGEON: Bebo Keene M.D. ANESTHESIA: Topical/MAC ESTIMATED BLOOD LOSS: None COMPLICATIONS: None After obtaining informed consent, the patient was brought to the operation room suite and placed in the supine position. After adequate sedation per anesthesia, topical drops of Tetracaine were given to the left eye. The eye was then prepped and draped in the usual sterile fashion. The operating room microscope was then positioned over the operative eye and a lid speculum placed. A paracentesis was created. Viscoelastic was then instilled into the anterior chamber. A three plane incision was then created temporally, utilizing a 2.85 mm keratome. Capsulotomy forceps were then utilized to create a circular tear capsulotomy. Hydrodissection and hydrodelineation were carried out until adequate mobilization of the nucleus occurred. Phacoemulsification was then utilized to remove the dense central nucleus followed by removal of the cortical material utilizing the automated aspiration irrigation unit. Viscoat elastic was instilled into the posterior capsular bag followed by placement of a posterior chamber intraocular lens without difficulty. The residual Viscoat elastic was then removed utilizing the automated IA machine. The wound was check and found to be watertight. The patient tolerated the procedure well and the lid speculum was removed. Intracameral injection of Vigamox 0.1 mL followed by a subtenon injection of Kenalog-40 0.2 mL were administered. The patient will be seen in the a.m.
[2022-12-08 08:45] VITALS: BP 145/74; PULSE 86; RESP 17; TEMP 36.9; O2SAT 97
== END 2022-12-08 08:50 | disposition home or self-care (01) ==
PROVIDERS: PCP Internal Medicine; Visit Provider Ophthalmology
PROC: (CPT 66985; principal; 2022-12-08 08:20)
DX: H25.12 Age-related nuclear cataract, left eye (principal); H52.4 Presbyopia; H40.013 Open angle with borderline findings, low risk, bilateral; H18.413 Arcus senilis, bilateral; H35.09 Other intraretinal microvascular abnormalities; M15.9 Polyosteoarthritis, unspecified; M80.851A Other osteoporosis with current pathological fracture, right femur, initial encounter for fracture; Z79.899 Other long term (current) drug therapy; Z96.651 Presence of right artificial knee joint; Z98.890 Other specified postprocedural states; Z87.891 Personal history of nicotine dependence
CPT/HCPCS: 66984; J2250; J3301; V2632

== ENCOUNTER → 2022-12-10 15:55 | Outpatient (BNVA) | payer MEDICARE, SELFPAY | PROVIDERS: PCP Internal Medicine; Visit Provider Internal Medicine Endocrinology, Diabetes & Metabolism | DX: M81.0 Age-related osteoporosis without current pathological fracture (principal); M06.9 Rheumatoid arthritis, unspecified; R29.6 Repeated falls; E83.51 Hypocalcemia; Z90.710 Acquired absence of both cervix and uterus; Z90.722 Acquired absence of ovaries, bilateral; Z78.0 Asymptomatic menopausal state | CPT/HCPCS: 99212 ==

== ENCOUNTER 2023-02-02 10:24 | Outpatient (AMB) | payer MEDICARE, SELFPAY ==
--- NOTE | 2023-02-02 12:55 | MHC.OFFWIV ---
Intake Vital Signs 02/02/23 12:56 Weight 138 lb BP 120/80 Blood Pressure Location Rt brachial Position Sitting Pulse 98 Pulse Source Pulse Oximeter Temp 98.2 F Temp Source Temporal Artery Scan Pulse Oximetry (%) 93 Oxygen Delivery Method Room Air Intake Visit Reasons: EP Cough (masked) Intake Note: Patient here for cold that has been present since thursday, she has been coughing so much that her ribs start to hurt very bad, states ribs hurt more when laying down at night and coughs a lot more. Patient Tobacco Use Status: Former Tobacco user Quit Date: 40 yrs ago Allergies No Known Allergies [No Known Allergies*] Allergy (Verified 02/02/23 13:09) Medication List - Last Reconciled 02/02/23 by Giovanni Pratt MD acetaminophen ER (Tylenol Arthritis Pain) 650 mg PO Q8H ascorbic acid (vitamin C) 500 mg PO DAILY azithromycin take 500 mg today (day 1), then 250 mg for 4 days (days 2-5) PO calcium carbonate (Calcium) 600 mg PO DAILY cholecalciferol (vitamin D3) 25 mcg PO DAILY codeine-guaifenesin 10-100 mg/5 mL 5 mL PO Q6H PRN diclofenac sodium 1% grams topical ergocalciferol (vitamin D2) 1,250 mcg PO QWEEK hydrocortisone 2.5% (Anusol-HC) 1 appl CO BID-QID PRN meloxicam 15 mg PO DAILY erbmkwqt-rec-mcfi-FA-vit K-lut 8 mg iron-400 mcg-50 mcg (Centrum Silver Women) 1 tab PO DAILY oxybutynin chloride ER 10 mg PO DAILY romosozumab-aqqg (Evenity) 210 mg (2.34 mL) subcut .monthly Do you need a note to return to daycare/school/sports/work: No HPI EP Cough (masked) HPI Details Patient presents for a sick visit. Reporting symptoms of sinus congestion, sore throat and difficulty swallowing. Low-grade fever. No family member is sick. No recent travel. Patient reports symptoms of malaise and fatigue. [facility] Medical History (Updated 02/02/23 @ 13:14 by Giovanni Pratt MD) Diverticulosis Femoral distal fracture Hemorrhoids Osteoarthritis Polyarthralgia Trigger finger Urge incontinence of urine Varicose vein of leg Surgical History History of appendectomy History of arthroscopy of right knee History of bunionectomy History of left cataract surgery History of right cataract surgery History of surgery History of surgery on lower extremity History of tonsillectomy History of total hysterectomy History of total right knee replacement (TKR) Family History Father Stomach cancer Mother No problems noted. Sister Ovarian cancer Social History Household Members: None Housing: House Are you a primary youth care professional to a significant other at home: No Do you presently have visiting nurse or other home services: No Alcohol intake: current Alcohol intake frequency: holidays/special occasions only Patient Tobacco Use Status: Former Tobacco user Quit Date: 40 yrs ago Tobacco use type: Cigarette e-Cigarette/Vaping Use: Never Used Second Hand Smoke Exposure: No service: No Current occupational status: retired Current occupation: Payroll Cognitive needs: No Hearing needs: No Vision needs: Yes Physical Exam Vital Signs: Last Vital Signs Temp 98.2 F 02/02/23 12:56 Pulse 98 02/02/23 12:56 BP 120/80 02/02/23 12:56 Pulse Ox 93 02/02/23 12:56 Oxygen Delivery Method Room Air 02/02/23 12:56 Const General: cooperative and healthy appearing Nutritional Appearance: well nourished Orientation/consciousness: patient oriented x3 Limitations: no limitations HEENT Head: Yes normal to inspection Eyes General: appearance normal, both eyes and all related structures Neck Neck: Yes normal visual inspection Chest Chest palpation & inspection: normal palpation of entire chest wall Resp Effort & Inspection: normal respiratory effort Neuro General: patient oriented x3 Assessment & Plan Assessment & Plan (1) Upper respiratory tract infection: Code(s): J06.9 - Acute upper respiratory infection, unspecified Plan: Antibiotics ordered. Increase fluid intake. Tylenol for aches and pains. If symptoms worsen, follow-up here for a recheck. Medications: New azithromycin take 500 mg today (day 1), then 250 mg for 4 days (days 2-5) PO 6 tabs 0RF codeine-guaifenesin 10-100 mg/5 mL 5 mL PO Q6H PRN 120 mL 0RF allergy symptoms Coding Level of Care Code Est Pt Level 3 (24978) Diagnoses Upper respiratory tract infection J06.9
[2023-02-02 12:56] VITALS: BP 120/80; PULSE 98; TEMP 36.8; O2SAT 93
== END 2023-02-02 13:28 | disposition home or self-care (01) ==
PROVIDERS: PCP Internal Medicine; Visit Provider Internal Medicine
DX: J06.9 Acute upper respiratory infection, unspecified (principal)
CPT/HCPCS: 99213

== ENCOUNTER 2023-03-26 10:36 | Outpatient (REF) | payer MEDICARE, SELFPAY | END 2023-03-26 10:37 | disposition home or self-care (01) | LOC: HO.MAMMO 10:36 | PROVIDERS: PCP Internal Medicine; Visit Provider Internal Medicine | DX: Z12.31 Encounter for screening mammogram for malignant neoplasm of breast (principal) | CPT/HCPCS: 77063; 77067 ==

== ENCOUNTER → 2023-03-26 10:45 | Outpatient (BNV) | payer MEDICARE, SELFPAY | PROVIDERS: PCP Internal Medicine; Visit Provider Radiology Diagnostic Radiology | DX: Z12.31 Encounter for screening mammogram for malignant neoplasm of breast (principal) | CPT/HCPCS: 77063; 77067 ==

== ENCOUNTER 2023-09-11 08:48 | Outpatient (AMB) | payer MEDICARE, SELFPAY ==
--- NOTE | 2023-09-11 08:52 | MHC.OFFVIS ---
Intake Vital Signs 09/11/23 08:53 Height 5 ft 1.1 in BMI Reason not done Patient refused/unable BP 112/72 Blood Pressure Location Lt brachial Position Sitting Pulse 72 Intake Visit Reasons: 2 Yr follow up Intake Note: 2 year follow up Color Dipper Required: No Accompanied by: Self / Same As Patient Allergies No Known Allergies [No Known Allergies*] Allergy (Verified 09/11/23 08:54) Medication List - Last Reconciled 09/11/23 by Ruddy Trammell MD acetaminophen ER (Tylenol Arthritis Pain) 650 mg PO Q8H ascorbic acid (vitamin C) 500 mg PO DAILY calcium carbonate (Calcium) 600 mg PO DAILY cholecalciferol (vitamin D3) 25 mcg PO DAILY diclofenac sodium 1% grams topical ergocalciferol (vitamin D2) 1,250 mcg PO QWEEK hydrocortisone 2.5% (Anusol-HC) 1 appl [place] BID-QID PRN meloxicam 15 mg PO DAILY metoprolol succinate ER 50 mg PO BID kszhwass-xzr-aewz-FA-vit K-lut 8 mg iron-400 mcg-50 mcg (Centrum Silver Women) 1 tab PO DAILY oxybutynin chloride ER 10 mg PO DAILY rivaroxaban (Xarelto) 20 mg PO DAILY HPI HPI Comments History of Present Illness Details Jewell was referred here for evaluation after recent hospitalization at [facility] after accidental fall and severe injury to the left lower extremity requiring surgical intervention on her ankle. Since then she has been very limited in activity. However when she ended up going to the hospital she was noted to have significantly elevated blood pressure and new onset atrial fibrillation. This was managed medically and subsequently had an echocardiogram which showed mildly reduced LV ejection fraction with apical and periapical wall motion abnormality. She was then told that she might have had a heart attack. Since then she was started on metoprolol therapy for blood pressure and Xarelto for her paroxysmal atrial fibrillation she has been maintained on the same. She denies any symptoms of palpitation since then. She says a blood pressure is also been well controlled. She continues to take Xarelto on a regular basis. She is now coming here for follow-up to manage these cardiovascular issues. As you may be aware she had a prior coronary CTA which had shown normal coronary angiogram. She also concerned about left lower extremity with edema in the injury limb [facility] Medical History Hemorrhoids Polyarthralgia Trigger finger Femoral distal fracture Urge incontinence of urine Diverticulosis Varicose vein of leg Osteoarthritis Surgical History History of right cataract surgery History of left cataract surgery History of total right knee replacement (TKR) History of surgery on lower extremity History of surgery History of arthroscopy of right knee History of bunionectomy History of appendectomy History of tonsillectomy History of total hysterectomy Family History Father Stomach cancer Mother No problems noted. Sister Ovarian cancer Social History Household Members: None Housing: House Are you a primary residential care facility manager to a significant other at home: No Do you presently have visiting nurse or other home services: No Alcohol intake: current Alcohol intake frequency: holidays/special occasions only Comment: Uses cane for support when outside Patient Tobacco Use Status: Former Tobacco user Quit Date: 40 yrs ago Tobacco use type: Cigarette e-Cigarette/Vaping Use: Never Used Second Hand Smoke Exposure: No service: No Current occupational status: retired Current occupation: Payroll Cognitive needs: No Hearing needs: No Vision needs: Yes Review of Systems Const Denies weakness ENT Denies dizziness Card Denies chest pain, Denies chest pain with activity, Denies syncope, Denies rapid heart rate, Denies pedal edema, Denies edema, Denies lightheadedness, Denies palpitations, Denies dyspnea, Denies dyspnea on exertion and Denies orthopnea Resp Denies cough, Denies dyspnea and Denies dyspnea on exertion GI Denies hematochezia and Denies change in stool character Musc Denies abnormal gait, Denies muscle cramps, Denies muscle weakness, Denies numbness, Denies radiating pain into limb and Denies tingling Neuro Denies Abnormal speech present, Denies abnormal gait, Denies dizziness, Denies syncope, Denies numbness, Denies tingling and Denies weakness Endo Denies palpitations Physical Exam Vital Signs: Last Vital Signs Pulse 72 09/11/23 08:53 BP 112/72 09/11/23 08:53 Repeat blood pressure is 140/70 with heart rate of 88 beats per minute Const General: cooperative, comfortable, no acute distress, alert, awake and well groomed Nutritional Appearance: average body habitus Orientation/consciousness: patient oriented x3 Limitations: wheelchair HEENT Head: Yes normocephalic and Yes atraumatic Neck Neck: Yes trachea midline, Yes supple and Yes no JVD Chest Chest palpation & inspection: normal inspection of the chest Resp Effort & Inspection: normal respiratory effort Auscultation: clear to auscultation bilaterally Cardio Jugular venous distension: no JVD Palpation: normal PMI Rate: regular rate Rhythm: regular rhythm Heart sounds: S1 normal heart sound present, S2 normal heart sound present, no click, no gallops, no murmurs and no rubs GI Auscultation: normal bowel sounds Skin General skin exam: no rashes or lesions noted Neuro General: patient oriented x3 and no focal motor deficits Speech: No Abnormal speech present Extrem General: Yes other (Left lower extremity is in a cast with at least 2 to 3+ edema) Psych Affect: Anxious affect present Assessment & Plan Assessment & Plan (1) Paroxysmal atrial fibrillation: Code(s): I48.0 - Paroxysmal atrial fibrillation Plan: Paroxysmal atrial fibrillation which appears to be due to acute medical/surgical illness with acute fall and injury. This seems like and 1 time event. This can happen in patients in her age group and was discussed with her. At this point time I would suggest that she continue Xarelto till she is more mobile and risk of venous thromboembolic disease has reduced. 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 If she has no further atrial fibrillation out consider stopping long-term oral anticoagulation use as this was a 1 time event related to acute medical/stressful situation. Continue monitor clinically after that. (2) Cardiomyopathy: Code(s): I42.9 - Cardiomyopathy, unspecified Plan: Acute cardiomyopathy issue which also appears to be stress-induced cardiomyopathy AKA takotsubo cardiomyopathy. This can also happen with acute injury in postmenopausal women. Discussed about the findings on the echocardiogram and recommend repeat limited echocardiogram to see resolution of wall motion abnormality normalization of LV systolic function. Stress mitigation strategies to be pursued. Metoprolol can be considered and continued in the prison to reduce recurrence of stress-induced cardiomyopathy. Risk of underlying coronary artery disease is low. Other possibility includes embolic event related to atrial fibrillation if there is no resolution of her LV systolic function. (3) HTN (hypertension): Code(s): I10 - Essential (primary) hypertension Plan: Hypertension which is currently well optimized. She is questioning use of metoprolol therapy. At this point time I have suggested to continue metoprolol therapy as a blood pressure is well optimized. This can be readdressed in future although can be continued long run with low risk for long-term side effects. Will follow up in the clinic in 1 year's time, sooner p.r.n.. Thank you for allowing me to partake in the care Orders: Orders CA echo limited Today I42.9 - Cardiomyopathy, unspecified Medications: New rivaroxaban (Xarelto) must administer with evening meal 20 mg PO DAILY 90 tabs 0RF I42.9 - Cardiomyopathy, unspecified metoprolol succinate ER 50 mg PO BID 90 days 180 tabs 0RF I42.9 - Cardiomyopathy, unspecified Coding Level of Care Code Est Pt Level 4 (26515) Diagnoses Paroxysmal atrial fibrillation I48.0 Cardiomyopathy I42.9 HTN (hypertension) I10
[2023-09-11 08:53] VITALS: BP 112/72; PULSE 72
== END 2023-09-11 09:26 | disposition home or self-care (01) ==
PROVIDERS: PCP Internal Medicine; Visit Provider Internal Medicine Cardiovascular Disease
DX: I48.0 Paroxysmal atrial fibrillation (principal); I42.9 Cardiomyopathy, unspecified; I10 Essential (primary) hypertension
CPT/HCPCS: 99214

== ENCOUNTER → 2023-09-11 08:48 | Outpatient (BNVA) | payer MEDICARE, SELFPAY | PROVIDERS: PCP Internal Medicine; Visit Provider Internal Medicine Cardiovascular Disease | DX: I48.0 Paroxysmal atrial fibrillation (principal); I42.9 Cardiomyopathy, unspecified; I10 Essential (primary) hypertension | CPT/HCPCS: 99212 ==

== ENCOUNTER 2023-10-29 10:55 | Outpatient (AMB) | payer MEDICARE, SELFPAY ==
--- NOTE | 2023-10-29 11:30 | MHC.PC.OV ---
Vital Signs 10/29/23 11:46 Height 5 ft 1.1 in Weight 133 lb BMI 25.0 BP 135/70 Blood Pressure Location Rt brachial Position Sitting Pulse 90 Pulse Source Pulse Oximeter Pulse Oximetry (%) 97 Oxygen Delivery Method Room Air Intake Visit Reasons: PE Intake Note: Pt is here today for her PE: Last mammogram 03/26/23, bone density scan 03/20/22 Allergies No Known Allergies [No Known Allergies*] Allergy (Verified 10/29/23 12:15) Medication List - Last Reconciled 10/29/23 by Luann Chapman MD acetaminophen ER (Tylenol Arthritis Pain) 650 mg PO Q8H ascorbic acid (vitamin C) 500 mg PO DAILY calcium carbonate (Calcium 600) 600 mg PO DAILY diclofenac sodium 1% grams topical ergocalciferol (vitamin D2) 1,250 mcg PO QWEEK meloxicam 15 mg PO DAILY metoprolol succinate ER 50 mg PO DAILY 90 days [id number]-FA-vit K-lut 8 mg iron-400 mcg-50 mcg (Centrum Silver Women) 1 tab PO DAILY oxybutynin chloride ER 10 mg PO DAILY rivaroxaban (Xarelto) 20 mg PO DAILY Tobacco use date assessed: 10/29/23 Fall risk assessment: 1 Fall in past year Last assessed Fall Risk: 10/29/23 Dental Screening Dental Screen Date: 10/29/23 Did you have a dental visit in the last 12 months?: Yes Did you have a dental problem in the last 6 months where you did not have access to dental care?: No Was dental information given to patient?: Patient has dentist HPI PE HPI Details 78-year-old lady with hypertension, paroxysmal atrial fibrillation currently on Xarelto, osteoporosis with history of fracture, generalized osteoarthritis, urge incontinence here today for her physical exam. She is up-to-date with her mammogram, done 03/26/23, and had her bone density scan done in 2021. Her last colonoscopy was done in 2013 with benign findings with no further screening indicated . She has been feeling well with no complaints at present time [facility] Medical History Hemorrhoids Polyarthralgia Trigger finger Femoral distal fracture Urge incontinence of urine Diverticulosis Varicose vein of leg Osteoarthritis Surgical History History of right cataract surgery History of left cataract surgery History of total right knee replacement (TKR) History of surgery on lower extremity History of surgery History of arthroscopy of right knee History of bunionectomy History of appendectomy History of tonsillectomy History of total hysterectomy Family History Father Stomach cancer Mother No problems noted. Sister Ovarian cancer Social History Household Members: None Housing: House Are you a primary child care lead teacher to a significant other at home: No Do you presently have visiting nurse or other home services: No Alcohol intake: current Alcohol intake frequency: holidays/special occasions only Comment: Uses cane for support when outside Patient Tobacco Use Status: Former Tobacco user Quit Date: 40 yrs ago Tobacco use type: Cigarette e-Cigarette/Vaping Use: Never Used Second Hand Smoke Exposure: No service: No Current occupational status: retired Current occupation: Payroll Cognitive needs: No Hearing needs: No Vision needs: Yes Questionnaire PHQ-9 Over the last 2 weeks, how often have you been bothered by any of the following problems? 1. Little interest or pleasure in doing things: not at all 2. Feeling down, depressed, or hopeless: not at all 3. Trouble falling or staying asleep, or sleeping too much: not at all 4. Feeling tired or having little energy: not at all 5. Poor appetite or overeating: not at all 6. Feeling bad about yourself - or that you are a failure or have let yourself or your family down: not at all 7. Trouble concentrating on things, such as reading the newspaper or watching television: not at all 8. Moving or speaking so slowly that other people could have noticed. Or the opposite - being so fidgety or restless that you have been moving around a lot more than usual: not at all 9. Thoughts that you would be better off or of hurting yourself in some way: not at all Total score: 0 Depression Screening Interpretation: Negative Depression Screening Done: Yes 92316 - PHQ-9 Billing: Yes Source: Developed by Drs. Talon Orosco, NaomyCharli Moctezuma and colleagues, with an educational iliana from [employer]. Thrive Questionnaire Date Thrive assessed: 10/29/23 I am a: Patient What is your living situation today?: I have a steady place to live Within the past 12 months, did the food you bought not last and you didn't have the money to get more?: Never true Within the past 12 months, did you worry whether your food would run out before you got money to buy more?: Never true Do you have trouble paying for medicines?: No Do you have trouble getting transportation to medical appointments?: No Do you have trouble paying your heating and electricity bill?: No Do you have trouble taking care of your child, family member or friend?: No Do you have trouble with day-to-day activities such as bathing, preparing meals, shopping, managing finances, etc.?: No Are you currently unemployed and looking for a job?: No Are you interested in more education?: No THRIVE Score: 0 AUDIT C Alcohol Use Questionnaire (AUDIT-C) 1. How often do you have a drink containing alcohol?: Monthly or less 2. How many drinks containing alcohol do you have on a typical day when you are drinking?: 1 or 2 3. How often do you have six or more drinks on one occasion?: Never Total Score: 1 ZOË-7 AMB Questionnaire ZOË-7 Date ZOË - 7 assessed: 10/29/23 Feeling nervous, anxious, or on edge: 0 = Not at all Not being able to stop or control worryin = Not at all Worrying too much about different things: 0 = Not at all Trouble relaxin = Not at all Being so restless that it is hard to sit still: 0 = Not at all Becoming easily annoyed or irritable: 0 = Not at all Feeling afraid as if something awful might happen: 0 = Not at all Total ZOË-7 score (0-4 normal; 5-9 mild; 10-14 moderate; 15-21 severe): 0 Source: Developed by Drs. Talon Orosco, Charli Mcdaniel and colleagues, with an educational iilana from [employer]. Review of Systems Const Denies weakness Eyes Denies change in vision ENT Denies dizziness Card Denies chest pain, Denies chest pain with activity, Denies syncope, Denies rapid heart rate, Denies pedal edema, Denies lightheadedness, Denies palpitations, Denies dyspnea and Denies dyspnea on exertion Resp Denies cough, Denies dyspnea and Denies dyspnea on exertion GI Denies hematochezia and Denies change in stool character Reports no additional complaints Musc Denies abnormal gait, Denies muscle cramps, Denies muscle weakness and Denies numbness Skin/Breast Denies breast pain, Denies breast mass and Denies rash Neuro Denies Abnormal speech present, Denies abnormal gait, Denies dizziness, Denies syncope, Denies numbness and Denies weakness Psych Reports no additional complaints Endo Denies palpitations Rambo/Lymph Reports no additional complaints Aller/Immun Reports no additional complaints Physical exam (Primary Care) Vital Signs: Last Vital Signs Pulse 90 10/29/23 11:46 BP 135/70 10/29/23 11:46 Pulse Ox 97 10/29/23 11:46 Oxygen Delivery Method Room Air 10/29/23 11:46 BMI result Body Mass Index 25.0 Tobacco/Smoking Status: Tobacco use Status Tobacco use date assessed 10/29/23 10/29/23 11:32 Patient Tobacco Use Status Former Tobacco user 10/29/23 11:32 Tobacco use type Cigarette 10/29/23 11:32 e-Cigarette/Vaping Use Never Used 10/29/23 11:32 PHQ-9: PHQ-9 Score PHQ-9: Total score 0 11/10/23 00:47 Depression Screening Interpretation: Negative Thrive Assessment: Date of Thrive Assessment Date Thrive assessed 10/29/23 10/29/23 11:52 Const General: cooperative, comfortable and no acute distress Orientation/consciousness: patient oriented x3 HENMT Ears: hearing grossly normal bilaterally, external ears normal, TM's normal bilaterally and EAC's normal General nose exam: Normal external nose present Mouth: oropharynx normal and moist mucous membranes Eyes General: appearance normal, both eyes and all related structures Neck Neck: Yes full ROM, Yes no lymphadenopathy and Yes supple Resp Effort & Inspection: normal respiratory effort and able to speak in complete sentences Auscultation: clear to auscultation bilaterally Cardio Rate: regular rate Rhythm: regular rhythm Heart sounds: S1 normal heart sound present and S2 normal heart sound present GI Inspection: Yes normal to inspection Palpation (GI): Soft to palpation, nontender and no masses Auscultation: normal bowel sounds Back/Spine/Pelvis Cervical Spine: cervical ROM normal Thoracic/Lumbar Spine: thoracic and lumbar spine normal to inspection Skin General skin exam: no rashes or lesions noted Neuro General: patient oriented x3, tone normal, moves all extremities, Normal light touch and pain sensation and no focal motor deficits Cognition (Neuro): normal cognition Speech: No Abnormal speech present Motor exam (neuro): 5/5 motor strength present throughout Extrem General: Yes full ROM, Yes no pedal edema, Yes no calf tenderness and Yes normal gait Assessment and Plan Assessment & Plan (1) Annual visit for general adult medical examination with abnormal findings: Code(s): Z00.01 - Encounter for general adult medical examination with abnormal findings Plan: Will check appropriate labs.. Take adequate calcium in diet and vitamin-D 3 at 2000 IU per cap once a day, in addition to weight-bearing exercises to help maintain good muscle tone and weight control. Up-to-date with her screening mammogram and screening colonoscopy. Up-to-date with all her vaccinations (2) Paroxysmal atrial fibrillation: Code(s): I48.0 - Paroxysmal atrial fibrillation Plan: Continued on Xarelto (3) Cardiomyopathy: Code(s): I42.9 - Cardiomyopathy, unspecified (4) HTN (hypertension): Code(s): I10 - Essential (primary) hypertension (5) Advanced directives, counseling/discussion: Code(s): Z71.89 - Other specified counseling Plan: Initiated the conversation about Advanced Directives. Advanced Directives help patients prepare for current and future decisions about their medical treatment and place of care. Discussed with patient that it is a process where a patients current condition and prognosis are reviewed, their wishes for information regarding their illness are elicited, and likely medical dilemmas are presented and options discussed. Healthcare proxy form and MOLST form completed . These can be amended as needed, reviewed yearly and make changes as needed Orders: Orders Basic Metabolic Panel Fasting 10/29/23 M80.051A - Age-related osteoporosis with current pathological fracture, right femur, initial encounter for fracture, I48.0 - Paroxysmal atrial fibrillation, I42.9 - Cardiomyopathy, unspecified, I10 - Essential (primary) hypertension, Z78.0 - Asymptomatic menopausal state Vitamin D 25-OH Total 10/29/23 M80.051A - Age-related osteoporosis with current pathological fracture, right femur, initial encounter for fracture, I48.0 - Paroxysmal atrial fibrillation, I42.9 - Cardiomyopathy, unspecified, I10 - Essential (primary) hypertension, Z78.0 - Asymptomatic menopausal state Alanine Aminotransferase 10/29/23 M80.051A - Age-related osteoporosis with current pathological fracture, right femur, initial encounter for fracture, I48.0 - Paroxysmal atrial fibrillation, I42.9 - Cardiomyopathy, unspecified, I10 - Essential (primary) hypertension, Z78.0 - Asymptomatic menopausal state Aspartate Amino Transferase 10/29/23 M80.051A - Age-related osteoporosis with current pathological fracture, right femur, initial encounter for fracture, I48.0 - Paroxysmal atrial fibrillation, I42.9 - Cardiomyopathy, unspecified, I10 - Essential (primary) hypertension, Z78.0 - Asymptomatic menopausal state Complete Blood Count Auto Diff 10/29/23 M80.051A - Age-related osteoporosis with current pathological fracture, right femur, initial encounter for fracture, I48.0 - Paroxysmal atrial fibrillation, I42.9 - Cardiomyopathy, unspecified, I10 - Essential (primary) hypertension, Z78.0 - Asymptomatic menopausal state Lipid Panel 10/29/23 M80.051A - Age-related osteoporosis with current pathological fracture, right femur, initial encounter for fracture, I48.0 - Paroxysmal atrial fibrillation, I42.9 - Cardiomyopathy, unspecified, I10 - Essential (primary) hypertension, Z78.0 - Asymptomatic menopausal state Coding Level of Care Code Est Pt [facility] Care >65y(77103) Diagnoses Annual visit for general adult medical examination with abnormal findings Z00.01 Paroxysmal atrial fibrillation I48.0 Cardiomyopathy I42.9 HTN (hypertension) I10 Advanced directives, counseling/discussion Z71.89
[2023-10-29 11:46] VITALS: BP 135/70; PULSE 90; O2SAT 97; BMI 25.0
== END 2023-10-29 12:24 | disposition home or self-care (01) ==
PROVIDERS: Visit Provider Internal Medicine
DX: Z00.00 Encounter for general adult medical examination without abnormal findings (principal); I48.0 Paroxysmal atrial fibrillation; I42.9 Cardiomyopathy, unspecified; I10 Essential (primary) hypertension; Z71.89 Other specified counseling
CPT/HCPCS: 99397

== ENCOUNTER 2024-02-09 08:33 | Outpatient (REF) | payer MEDICARE, SELFPAY ==
[2024-02-09 10:29] LABS: MANUAL DIFF FLAG NO
[2024-02-09 10:36] LABS: Basophils Absolute Auto 0.1 X10*3/uL (0.0-0.2); Basophils Percent Auto 0.7 % (0-2); Eosinophils Absolute Auto 0.2 X10*3/uL (0.0-0.4); Eosinophils Percent Auto 1.9 % (0-4); Hematocrit 40.6 % (37.0-47.0); Hemoglobin 13.4 g/dl (12.0-16.0); Imm Gran Abs Auto 0.06 X10*3/uL (0.00-0.03); Imm Gran Pct Auto 0.5 % (0.0-0.4); Lymphocytes Absolute Auto 1.8 X10*3/uL (1.2-4.9); Lymphocytes Percent Auto 16.1 % (20-40); Mean Corpuscular Hemoglobin 32.3 pg (27.0-33.0); Mean Corpuscular Volume 97.8 fL (80.0-98.0); Mean Platelet Volume 10.2 fL (9.4-12.3); Monocytes Absolute Auto 0.9 X10*3/uL (0.1-1.2); Monocytes Percent Auto 8.3 % (2-11); Neutrophils Absolute Auto 8.2 x10*3/uL (2.0-8.3); Neutrophils Percent Auto 72.5 % (45-73); Platelet Count 305 X10*3/uL (160-400); Red Blood Count 4.15 X10*6/uL (4.20-5.50); Red Cell Distribution Width 13.7 % (11.0-16.0); White Blood Count 11.3 X10*3/uL (4.8-10.8)
[2024-02-09 11:05] LABS: Alanine Aminotransferase 14 U/L (0-31); Anion Gap 12 (12-20); Aspartate Amino Transferase 14 U/L (5-31); Blood Urea Nitrogen 13 mg/dL (9-16); Calcium 10.2 mg/dL (8.4-10.2); Carbon Dioxide 29 mmol/L (22-29); Chloride 105 mmol/L (96-108); Cholesterol 163 mg/dL (<200); Estimated Glomerular Filt Rate > 60; Glucose Fasting 93 mg/dL (60-99); HDL Cholesterol 51 mg/dL (>40); LDL Cholesterol Calculated 94 mg/dL (<100); Potassium 4.1 mmol/L (3.3-5.1); Sodium 142 mmol/L (135-145); Triglycerides 91 mg/dL (<150)
[2024-02-09 11:22] LABS: Vitamin D 25-OH Total 47.6 ng/mL (>30)
== END 2024-02-09 08:34 | disposition home or self-care (01) ==
LOC: HO.HMGCLDS 08:33
PROVIDERS: PCP Internal Medicine; Visit Provider Internal Medicine
DX: M80.051A Age-related osteoporosis with current pathological fracture, right femur, initial encounter for fracture (principal); I48.0 Paroxysmal atrial fibrillation; I42.9 Cardiomyopathy, unspecified; I10 Essential (primary) hypertension; Z78.0 Asymptomatic menopausal state
CPT/HCPCS: 36415; 80048; 80061; 82306; 84450; 84460; 85025

== ENCOUNTER 2024-02-24 11:46 | Outpatient (AMB) | payer MEDICARE, SELFPAY ==
[2024-02-24 12:00] VITALS: BP 128/82; PULSE 80; O2SAT 95; BMI 26.0
--- NOTE | 2024-02-24 12:00 | A.OFFPC_ITS ---
Vital Signs 02/24/24 12:00 Height 5 ft 1.1 in Weight 138 lb BMI 26.0 BP 128/82 Blood Pressure Location Rt brachial Position Sitting Pulse 80 Pulse Source Pulse Oximeter Pulse Oximetry (%) 95 Oxygen Delivery Method Room Air Intake Visit Reasons: 4 month follow up Intake Note: Pt is here today for 4 months follow up visit on labs. Allergies No Known Allergies [No Known Allergies*] Allergy (Verified 02/24/24 12:43) Medication List - Last Reconciled 02/24/24 by Luann Chapman MD acetaminophen ER (Tylenol Arthritis Pain) 650 mg PO Q8H ascorbic acid (vitamin C) 500 mg PO DAILY calcium carbonate (Calcium 600) 600 mg PO DAILY diclofenac sodium 1% grams topical ergocalciferol (vitamin D2) 1,250 mcg PO QWEEK meloxicam 15 mg PO DAILY metoprolol succinate ER 50 mg PO DAILY 90 days [id number]-FA-vit K-lut 8 mg iron-400 mcg-50 mcg (Centrum Silver Women) 1 tab PO DAILY oxybutynin chloride ER 10 mg PO DAILY rivaroxaban (Xarelto) 20 mg PO DAILY Tobacco use date assessed: 02/24/24 Dental Screening Dental Screen Date: 10/29/23 HPI 4 month follow up HPI Details 78-year-old lady with history osteoporos is, with recent fracture, osteoarthritis, hypertension, cardiomyopathy paroxysmal atrial fibrillation on, here today for follow-up on her hypertension. She has been compliant with taking her medications, which consist of metoprolol succinate ER 50 mg daily. Has been feeling well with no other complaints at present time [facility] Medical History (Updated 02/28/24 @ 19:40 by Luann Chapman MD) On anticoagulant therapy Hemorrhoids Polyarthralgia Trigger finger Femoral distal fracture Urge incontinence of urine Diverticulosis Varicose vein of leg Osteoarthritis Surgical History History of right cataract surgery History of left cataract surgery History of total right knee replacement (TKR) History of surgery on lower extremity History of surgery History of arthroscopy of right knee History of bunionectomy History of appendectomy History of tonsillectomy History of total hysterectomy Family History Father Stomach cancer Mother No problems noted. Sister Ovarian cancer Social History Household Members: None Housing: House Are you a primary emergency care tech to a significant other at home: No Do you presently have visiting nurse or other home services: No Alcohol intake: current Alcohol intake frequency: holidays/special occasions only Comment: Uses cane for support when outside Patient Tobacco Use Status: Former Tobacco user Tobacco use type: Cigarette e-Cigarette/Vaping Use: Never Used Second Hand Smoke Exposure: No service: No Current occupational status: retired Current occupation: Payroll Cognitive needs: No Hearing needs: No Vision needs: Yes Questionnaire PHQ-9 Over the last 2 weeks, how often have you been bothered by any of the following problems? 1. Little interest or pleasure in doing things: not at all 2. Feeling down, depressed, or hopeless: not at all 3. Trouble falling or staying asleep, or sleeping too much: not at all 4. Feeling tired or having little energy: not at all 5. Poor appetite or overeating: not at all 6. Feeling bad about yourself - or that you are a failure or have let yourself or your family down: not at all 7. Trouble concentrating on things, such as reading the newspaper or watching television: not at all 8. Moving or speaking so slowly that other people could have noticed. Or the opposite - being so fidgety or restless that you have been moving around a lot more than usual: not at all 9. Thoughts that you would be better off or of hurting yourself in some way: not at all Total score: 0 Depression Screening Interpretation: Negative Depression Screening Done: Yes 86234 - PHQ-9 Billing: Yes Source: Developed by Drs. Talon Orosco, Naomy Ricci, Charli Li and colleagues, with an educational iliana from [employer]. Thrive Questionnaire Date Thrive assessed: 02/24/24 I am a: Patient What is your living situation today?: I have a steady place to live Within the past 12 months, did the food you bought not last and you didn't have the money to get more?: Never true Within the past 12 months, did you worry whether your food would run out before you got money to buy more?: Never true Do you have trouble paying for medicines?: No Do you have trouble getting transportation to medical appointments?: No Do you have trouble taking care of your child, family member or friend?: No Do you have trouble with day-to-day activities such as bathing, preparing meals, shopping, managing finances, etc.?: No Are you currently unemployed and looking for a job?: No Are you interested in more education?: No Please select the resources that you would like help with: None Currently or been in a relationship where the following occur: No concerns reported THRIVE Score: 0 AUDIT C Alcohol Use Questionnaire (AUDIT-C) 1. How often do you have a drink containing alcohol?: Monthly or less 2. How many drinks containing alcohol do you have on a typical day when you are drinking?: 1 or 2 3. How often do you have six or more drinks on one occasion?: Never Total Score: 1 ZOË-7 AMB Questionnaire ZOË-7 Date ZOË - 7 assessed: 02/24/24 Feeling nervous, anxious, or on edge: 0 = Not at all Not being able to stop or control worryin = Not at all Worrying too much about different things: 0 = Not at all Trouble relaxin = Not at all Being so restless that it is hard to sit still: 0 = Not at all Becoming easily annoyed or irritable: 0 = Not at all Feeling afraid as if something awful might happen: 0 = Not at all Total ZOË-7 score (0-4 normal; 5-9 mild; 10-14 moderate; 15-21 severe): 0 Source: Developed by Drs. Talon Orosco, Naomy Ricci, Charli Li and colleagues, with an educational iliana from [employer]. Review of Systems Const Denies weakness ENT Denies dizziness Card Denies chest pain, Denies chest pain with activity, Denies syncope, Denies rapid heart rate, Denies pedal edema, Denies lightheadedness, Denies palpitations, Denies dyspnea and Denies dyspnea on exertion Resp Denies cough, Denies dyspnea and Denies dyspnea on exertion GI Denies hematochezia and Denies change in stool character Reports no additional complaints Musc Denies abnormal gait, Denies muscle cramps, Denies muscle weakness and Denies numbness Skin/Breast Denies breast pain, Denies breast mass and Denies rash Neuro Denies Abnormal speech present, Denies abnormal gait, Denies dizziness, Denies syncope, Denies numbness and Denies weakness Endo Denies palpitations Rambo/Lymph Reports no additional complaints Aller/Immun Reports no additional complaints Physical exam (Primary Care) Vital Signs: Last Vital Signs Pulse 80 02/24/24 12:00 BP 128/82 02/24/24 12:00 Pulse Ox 95 02/24/24 12:00 Oxygen Delivery Method Room Air 02/24/24 12:00 BMI result Body Mass Index 26.0 Tobacco/Smoking Status: Tobacco use Status Tobacco use date assessed 02/24/24 02/24/24 12:12 Patient Tobacco Use Status Former Tobacco user 02/24/24 12:00 Tobacco use type Cigarette 02/24/24 12:00 e-Cigarette/Vaping Use Never Used 02/24/24 12:00 PHQ-9: PHQ-9 Score PHQ-9: Total score 0 02/24/24 12:42 Depression Screening Interpretation: Negative Thrive Assessment: Date of Thrive Assessment Date Thrive assessed 02/24/24 02/24/24 12:12 Currently or been in a relationship where the following occur: No concerns reported Const General: cooperative, comfortable and no acute distress Orientation/consciousness: patient oriented x3 HENMT Ears: external ears normal, TM's normal bilaterally and EAC's normal General nose exam: Normal external nose present Mouth: oropharynx normal and moist mucous membranes Eyes General: appearance normal, both eyes and all related structures Neck Neck: Yes full ROM, Yes no lymphadenopathy and Yes supple Resp Effort & Inspection: normal respiratory effort and able to speak in complete sentences Auscultation: clear to auscultation bilaterally Cardio Rate: regular rate Rhythm: regular rhythm Heart sounds: S1 normal heart sound present and S2 normal heart sound present GI Inspection: Yes normal to inspection Palpation (GI): Soft to palpation, nontender and no masses Auscultation: normal bowel sounds Back/Spine/Pelvis Cervical Spine: cervical ROM normal Thoracic/Lumbar Spine: thoracic and lumbar spine normal to inspection Skin General skin exam: no rashes or lesions noted Neuro General: patient oriented x3, tone normal, moves all extremities, Normal light touch and pain sensation and no focal motor deficits Cognition (Neuro): normal cognition Speech: No Abnormal speech present Motor exam (neuro): 5/5 motor strength present throughout Extrem General: Yes full ROM, Yes no pedal edema, Yes no calf tenderness and Yes normal gait Results Reviewed Results Reviewed: Name: Jewell Charles Age/Sex: 78/F : 1945 Unit#: [id number] Attend Dr: Luann Chapman MD Re02/09/24 Status: DEP REF Location: [facility] Disch: SPEC : [id number] DENIZ: 02/09/24 STATUS: COMP REQ : [id number] RECD: 02/09/[address]: Luann Chapman MD COMP: 02/09/24 ENTERED: 02/09/[address] [facility] [address]: ORDERED: CBC Auto Diff Test Result Flag Reference WBC 11.3 H 4.8-10.8 X10*3/uL RBC 4.15 L 4.20-5.50 X10*6/uL HGB 13.4 12.0-16.0 g/dl HCT 40.6 37.0-47.0 % MCV 97.8 80.0-98.0 fL MCH 32.3 27.0-33.0 pg MCHC 33.0 31.0-35.0 g/dl RDW 13.7 11.0-16.0 % PLT 305 160-400 X10*3/uL MPV 10.2 9.4-12.3 fL Neut Pct Auto 72.5 45-73 % ImGran Pct Auto 0.5 H 0.0-0.4 % Lymp Pct Auto 16.1 L 20-40 % [place] Pct Auto 8.3 2-11 % Eos Pct Auto 1.9 0-4 % Baso Pct Auto 0.7 0-2 % NRBC Pct Auto 0.0 0.0-0.2 /100WBC ANC Neut Abs # 8.2 2.0-8.3 x10*3/uL ImGran Abs Auto 0.06 H 0.00-0.03 X10*3/uL Lymph Abs Auto 1.8 1.2-4.9 X10*3/uL [place] Abs Auto 0.9 0.1-1.2 X10*3/uL Eos Abs Auto 0.2 0.0-0.4 X10*3/uL Baso Abs Auto 0.1 0.0-0.2 X10*3/uL NRBC Abs Auto 0.000 0.0-0.012 X10*3/uL Name: Jewell Charles Age/Sex: 78/F : 1945 Unit#: [id number] Attend Dr: Luann Chapman MD Re02/09/24 Status: DEP REF [facility] Disch: SPEC : [id number] DENIZ: 02/09/24 STATUS: COMP REQ : [id number] RECD: 02/09/24-[address]: Luann Chapman MD COMP: 02/09/24 ENTERED: 02/09/[address]: ORDERED: Met Prof Fast, AST, ALT, Lipid Panel, Vitamin D 25-OH Test Result Flag Reference Sodium 142 135-145 mmol/L Potassium 4.1 3.3-5.1 mmol/L CL 105 96-108 mmol/L CO2 29 22-29 mmol/L Gap 12 12-20 BUN 13 9-16 mg/dL Creat 0.57 0.5-1.4 mg/dL EGFR > 60 NOTE: For -[place] individuals, multiply the result by 1.210. Chronic Kidney Disease: Estimated GFR < 60 mL/min/1.73m2 Severe Kidney Disease: Estimated GFR < 15 mL/min/1.73m2 FBS 93 60-99 mg/dL CA 10.2 8.4-10.2 mg/dL AST (GOT) 14 5-31 U/L ALT (GPT) 14 0-31 U/L Triglyceride 91 <150 mg/dL Desirable Triglyceride: less than 150 mg/dL Borderline High Triglyceride 150-199 mg/dL High Triglyceride: 200-499 mg/dL Very High Triglyceride: greater than or equal to 5OO mg/dL Cholesterol 163 <200 mg/dL Desirable Cholesterol: less than 200 mg/dL Borderline High Cholesterol: 200-239 mg/dL High Cholesterol: greater than 239 mg/dL LDL Calculated 94 <100 mg/dL Desirable LDL: less than 100 mg/dL Near Optimal/Above Optimal LDL: 110-129 mg/dL Borderline High LDL: 130-159 mg/dL High LDL: 160-189 mg/dL Very High LDL: greater than or equal to 190 mg/dL HDL 51 >40 mg/dL Desirable HDL: greater than 40 mg/dL Note: This HDL assay may give artificially low results in patients with liver disease. Vit D 25-OH Tot 47.6 >30 ng/mL Health Based Reference Values* < 20 ng/mL Deficient 20-30 ng/mL Insufficient > 30 ng/mL Sufficient Assessment and Plan Assessment & Plan (1) HTN (hypertension): Code(s): I10 - Essential (primary) hypertension Qualifiers: Hypertension type: primary hypertension Qualified Code(s): I10 - Essential (primary) hypertension Plan: Blood pressure at goal of less than 130/80. Continue with current medication. Reinforced importance of following a low sodium diet, getting regular exercise, and lowering stress levels. Orders: Orders Complete Blood Count Auto Diff 11/05/24 I10 - Essential (primary) hypertension, I42.9 - Cardiomyopathy, unspecified, K64.9 - Unspecified hemorrhoids, M80.051A - Age-related osteoporosis with current pathological fracture, right femur, initial encounter for fracture, Z79.01 - senior care (current) use of anticoagulants Aspartate Amino Transferase 11/05/24 I10 - Essential (primary) hypertension, I42.9 - Cardiomyopathy, unspecified, K64.9 - Unspecified hemorrhoids, M80.051A - Age-related osteoporosis with current pathological fracture, right femur, initial encounter for fracture, Z79.01 - petroleum terminal plant operator (current) use of anticoagulants Lipid Panel 11/05/24 I10 - Essential (primary) hypertension, I42.9 - Cardiomyopathy, unspecified, K64.9 - Unspecified hemorrhoids, M80.051A - Age- related osteoporosis with current pathological fracture, right femur, initial encounter for fracture, Z79.01 - senior care (current) use of anticoagulants Alanine Aminotransferase 11/05/24 I10 - Essential (primary) hypertension, I42.9 - Cardiomyopathy, unspecified, K64.9 - Unspecified hemorrhoids, M80.051A - Age- related osteoporosis with current pathological fracture, right femur, initial encounter for fracture, Z79.01 - senior care (current) use of anticoagulants Vitamin D 25-OH Total 11/05/24 I10 - Essential (primary) hypertension, I42.9 - Cardiomyopathy, unspecified, K64.9 - Unspecified hemorrhoids, M80.051A - Age- related osteoporosis with current pathological fracture, right femur, initial encounter for fracture, Z79.01 - senior care (current) use of anticoagulants Basic Metabolic Panel Fasting 11/05/24 I10 - Essential (primary) hypertension, I42.9 - Cardiomyopathy, unspecified, K64.9 - Unspecified hemorrhoids, M80.051A - Age-related osteoporosis with current pathological fracture, right femur, initial encounter for fracture, Z79.01 - petroleum terminal plant operator (current) use of anticoagulants Coding Level of Care Code Est Pt Level 3 (65108) Diagnoses Primary hypertension I10 Hypertension type: primary hypertension
== END 2024-02-24 13:07 | disposition home or self-care (01) ==
PROVIDERS: PCP Internal Medicine; Visit Provider Internal Medicine
DX: I10 Essential (primary) hypertension (principal); M80.051A Age-related osteoporosis with current pathological fracture, right femur, initial encounter for fracture
CPT/HCPCS: 99213

== ENCOUNTER 2024-03-30 09:53 | Outpatient (AMB) | payer MEDICARE, SELFPAY ==
--- OUTSIDE RECORDS SUMMARY | 2024-03-30 09:54 | XMS_ITS | Continuity of Care Document ---
Author Organization [facility] Address [address] [place] [id number] Care Team Providers Care Trash Collector Name Role Phone Ari FLYNN, Luann Mace Primary Care Physician Encounter [facility] Date(s): 06/27/19 - 07/07/19 [facility] [address] [address]- [facility] Attending Physician: Wilmar Chambers Admitting Physician: Wilmar Chambers Referring Physician: AdmtrWilmar Allergies, Adverse Reactions, Alerts Substance Reaction Severity Status NKA Active Medications Diclofenac = 75 mg, By Mouth, 2 times a day, 0 Refills, Maintenance, 07/07/19 8:28:00 EST Start Date: 07/07/19 Status: Ordered Tylenol 8 HR Arthritis Pain 650 mg oral tablet, extended release 2 tablet = 1,300 mg, By Mouth, 2 times a day, 0 Refills, Maintenance, 07/07/19 8:29:00 EST Start Date: 07/07/19 Status: Ordered Social History Social History Type Response Smoking Status Former smoker; Other : quit smoking 40 years ago; entered on: 08/11/14 Sex
--- OUTSIDE RECORDS SUMMARY | 2024-03-30 09:54 | XMS_ITS | Continuity of Care Document ---
Author Organization [facility] ter Address [address] [place] [id number]- Care Team Providers Care Air Liaison And Special Staff Name Role Phone Ari FLYNN, Luann Mace Primary Care Physician Encounter [facility] [place] Date(s): 02/29/24 - 02/29/[address] [address]- Encounter Diagnosis Closed head injury(Final) - 02/29/24 Discharge Disposition: A-D/C Home Attending Physician: Ana Maria Gallo MD Admitting Physician: Ana Maria Gallo MD Referring Physician: Not on Staff, Referring MD Allergies, Adverse Reactions, Alerts No Known Allergies Immunizations Given and Recorded Vaccine Date Status Refusal Reason tetanus/diphtheria/pertussis, acel(Tdap) 02/29/24 Given RSV vaccine preF3, recombinant 07/22/23 Recorded influenza virus vaccine, inactivated 03/09/23 Kunal rded influenza virus vaccine, inactivated 02/24/22 Kunal rded influenza virus vaccine, inactivated 03/08/21 Kunal rded influenza virus vaccine, inactivated 02/17/20 Kunal rded influenza virus vaccine, inactivated 02/28/19 Kunal rded influenza virus vaccine, inactivated 02/21/18 Kunal rded influenza virus vaccine, inactivated 05/15/17 Kunal rded SARS-CoV-2(COVID-19)mRNA-LNP vac([id number]) 03/09/23 Recorded SARS-CoV-2 (COVID-19) mRNA BNT-162b2 vac 05/30/21 Recorded SARS-CoV-2 (COVID-19) mRNA BNT-162b2 vac 08/08/20 Recorded SARS-CoV-2 (COVID-19) mRNA BNT-162b2 vac 07/18/20 Recorded zoster vaccine, inactivated 04/23/20 Recorded zoster vaccine, inactivated 02/17/20 Recorded pneumococcal 13-valent vaccine 08/30/15 Recorded Zoster Vaccine Live 02/03/08 Recorded Medications ammonium lactate 12% topical cream 1 application, Topically, Daily in AM, PRN Dry Skin, Maintenance, 07/15/23 13:11:00 EST, Partial fill upon patient request if the prescription is for a schedule II opioid drug. Start Date: 07/15/23 Status: Ordered Claritin 10 mg oral tablet 10 mg, 1, tablet, By Mouth, Daily, Maintenance, 07/15/23 13:14:00 EST, Partial fill upon patient request if the prescription is for a schedule II opioid drug. Start Date: 07/15/23 Status: Ordered diclofenac 1% topical gel 1-4 gm, Topically, 4 times a day, 0 Refills, Maintenance, 07/14/23 20:27:00 EST, Partial fill upon patient request if the prescription is for a schedule II opioid drug. Start Date: 07/14/23 Stop Date: 07/24/23 Status: Ordered glucosamine 500 mg oral tablet 1 tablet = 500 mg, By Mouth, Daily, Maintenance, 07/15/23 13:13:00 EST, Partial fill upon patient request if the prescription is for a schedule II opioid drug. Start Date: 07/15/23 Status: Ordered metoprolol succinate 50 mg oral capsule, extended release 1 capsule = 50 mg, By Mouth, 2 times a day, # 60 capsule, 0 Refills, Maintenance, 07/17/23 12:57:00EST, ER Capsule, Partial fill upon patient request if the prescription is for a schedule II opioid drug. Start Date: 07/17/23 Stop Date: 08/16/23 Status: Ordered Mobic 15 mg oral tablet 1 tablet = 15 mg, By Mouth, Daily, Maintenance, 07/15/23 13:14:00 EST, Partial fill upon patient request if the prescription is for a schedule II opioid drug. Start Date: 07/15/23 Status: Ordered Multivitamin 1 tablet, By Mouth, Daily, Maintenance, 05/26/22 19:04:00 EST, Partial fill upon patient request ifthe prescription is for a schedule II opioid drug. Start Date: 05/26/22 Status: Ordered Neurontin 100 mg oral capsule 200 mg, 2, capsule, By Mouth, Daily at bedtime, Maintenance, 07/15/23 13:13:00 EST, Partial fill upon patient request if the prescription is for a schedule II opioid drug. Start Date: 07/15/23 Status: Ordered oxybutynin 10 mg/24 hr oral tablet, extended release 1 tablet = 10 mg, By Mouth, Daily, 0 Refills, Maintenance, 05/25/22 23:08:00 EST, ER Tablet, Partial fill upon patient request if the prescription is for a schedule II opioid drug. Start Date: 05/25/22 Status: Ordered rivaroxaban 20 mg oral tablet = 20 mg, By Mouth, Daily at supper, # 30 capsule, 0 Refills, Maintenance, 07/17/23 12:57:00 EST, Tablet, Partial fill upon patient request if the prescription is for a schedule II opioid drug. Start Date: 07/17/23 Stop Date: 08/16/23 Status: Ordered Visine 0.05% ophthalmic solution 1 drops, Eyes, Both, 4 times a day, PRN as needed for dry eyes, Maintenance, 07/15/23 13:18:00 EST,Partial fill upon patient request if the prescription is for a schedule II opioid drug. Start Date: 07/15/23 Status: Ordered Vitamin C 500 mg oral tablet 1 tablet = 500 mg, By Mouth, Daily, Maintenance, 07/15/23 13:12:00 EST, Partial fill upon patient request if the prescription is for a schedule II opioid drug. Start Date: 07/15/23 Status: Ordered Vitamin D2 50,000 intl units (1.25 mg) oral capsule 1 capsule = 50,000 International_Units, By Mouth, Every Thursday, Maintenance, 07/15/23 13:17:00 EST, Partial fill upon patient request if the prescription is for a schedule II opioid drug. Start Date: 07/15/23 Status: Ordered Results Radiology Reports * Exam Date Time Procedure Performing Provider Status 02/29/24 2:[address] Cervical Spine W/ O Contrast Berkley Ibanez (Verified) Notes: (CT Cervical Spine W/O Contrast) Reason For Exam: Neck trauma, dangerous injury mechanism;Other: RESULT: CT Cervical Spine W/O Contrast CT Head/Brain W/O Contrast, CT Cervical Spine W/O Contrast INDICATION: Hx of Present Illness: [place] at [place], tripped and fell, positive head strike, neg LOC,in C Collar, reports PATTON, has contusion and abrasion above L eye, CMS intact, abrasions to 4th and 5th fingers on both hands, on thinners; Reason: Trauma; Clinical Question(s): Infarction; Order Comment: TECHNIQUE: Noncontrast head CT using axial technique was reconstructed in axial and coronal planes.Noncontrast spiral CT through the cervical spine was formatted in 3 planes. Automatic tube modulation was used for the cervical spine and iterative dose reconstruction was used for both the head and cervical spine to optimize scan parameters and image quality. CTDIvol Body: 8.00 mGy, DLP Body: 206 mGy*cm. CTDIvol Head: 41.80 mGy, DLP Head: 672 mGy*cm. COMPARISON: None. FINDINGS: [employer] Counter Person View Findings, Lines and Tubes: None. BRAIN AND EXTRA-AXIAL SPACES: No parenchymal hemorrhage, midline shift, or mass effect. Santiago-white matter differentiation is wellpreserved. No acute infarct. Negative insular ribbon sign. Atherosclerotic vascular calcification of the carotid arteries but negative hyperdense vessel sign. Mild prominence of the ventricles and sulci consistent with parenchymal volume loss. Mild low-density white matter changes. No subarachnoid hemorrhage. No subdural or epidural collection. CALVARIUM, SKULL BASE, AND SOFT TISSUES: No fractures or suspicious bony lesions. The paranasal sinuses and mastoid air cells are clear. Status-post bilateral lens extraction. The extracranial soft tissues are unremarkable. CERVICAL SPINE: No fracture. No acute osseous abnormalities. Normal alignment. No locked or perched facet. Moderate multilevel degenerative disc space narrowingand end plate irregularity. Multilevel posterior disc aspect complexes with mild central canal narrowing, most pronounced at C4-C5, C5-C6 and C6-C7 OTHER BONES: No acute abnormality. CERVICAL SOFT TISSUES AND LUNG APICES: Normal soft tissues. Mild scarring in the lung apices, right greater than left. Unchanged calcifiedleft thyroid nodule. IMPRESSION: No acute abnormality of the head or cervical spine. WSN: [id number] Ordering Physician: Ana Maria Gallo Dictated By: Prabhakar Weinstein MD Dictated Date/Time: 02/29/24 3:22 pm Reviewed By: Prabhakar Weinstein MD Signed By: Prabhakar Weinstein MD Signed Date/Time: 02/29/24 3:22 pm Transcribed By: DEBBIE Transcribed Date/Time: 02/29/24 3:13 pm * Exam Date Time Procedure Performing Provider Status 02/29/24 2:[address] Head/Brain W/O Contrast Berkley Rios; Lida (Verified) Notes: (CT Head/Brain W/O Contrast) Reason For Exam: Trauma RESULT: CT Head/Brain W/O Contrast CT Head/Brain W/O Contrast, CT Cervical Spine W/O Contrast INDICATION: Hx of Present Illness: [place], tripped and fell, positive head strike, neg LOC,in C Collar, reports PATTON, has contusion and abrasion above L eye, CMS intact, abrasions to 4th and 5th fingers on both hands, on thinners; Reason: Trauma; Clinical Question(s): Infarction; Order Comment: TECHNIQUE: Noncontrast head CT using axial technique was reconstructed in axial and coronal planes.Noncontrast spiral CT through the cervical spine was formatted in 3 planes. Automatic tube modulation was used for the cervical spine and iterative dose reconstruction was used for both the head and cervical spine to optimize scan parameters and image quality. CTDIvol Body: 8.00 mGy, DLP Body: 206 mGy*cm. CTDIvol Head: 41.80 mGy, DLP Head: 672 mGy*cm. COMPARISON: None. FINDINGS: [employer] Counter Person View Findings, Lines and Tubes: None. BRAIN AND EXTRA-AXIAL SPACES: No parenchymal hemorrhage, midline shift, or mass effect. Santiago-white matter differentiation is wellpreserved. No acute infarct. Negative insular ribbon sign. Atherosclerotic vascular calcification of the carotid arteries but negative hyperdense vessel sign. Mild prominence of the ventricles and sulci consistent with parenchymal volume loss. Mild low-density white matter changes. No subarachnoid hemorrhage. No subdural or epidural collection. CALVARIUM, SKULL BASE, AND SOFT TISSUES: No fractures or suspicious bony lesions. The paranasal sinuses and mastoid air cells are clear. Status-post bilateral lens extraction. The extracranial soft tissues are unremarkable. CERVICAL SPINE: No fracture. No acute osseous abnormalities. Normal alignment. No locked or perched facet. Moderate multilevel degenerative disc space narrowingand end plate irregularity. Multilevel posterior disc aspect complexes with mild central canal narrowing, most pronounced at C4-C5, C5-C6 and C6-C7 OTHER BONES: No acute abnormality. CERVICAL SOFT TISSUES AND LUNG APICES: Normal soft tissues. Mild scarring in the lung apices, right greater than left. Unchanged calcifiedleft thyroid nodule. IMPRESSION: No acute abnormality of the head or cervical spine. WSN: [id number] Ordering Physician: Ana Maria Gallo Dictated By: Prabhakar Weinstein MD Dictated Date/Time: 02/29/24 3:22 pm Reviewed By: Prabhakar Weinstein MD Signed By: Prabhakar Weinstein MD Signed Date/Time: 02/29/24 3:22 pm Transcribed By: DEBBIE Transcribed Date/Time: 02/29/24 3:13 pm * Exam Date Time Procedure Performing Provider Status 02/29/24 1:53 PM Hand Min 3 Views Right Adrianna De La Vega; Auth (Verified) Notes: (Hand Min 3 Views Right) Reason For Exam: with Pain;Trauma RESULT: Hand Min 3 Views Right Right hand 3 views dated February 29, 2024. No prior studies are available. HISTORY: Pain. FINDINGS: This examination shows no evidence of fracture or dislocation. There is loss of joint space in the interphalangeal joints with associated osteophyte formation. There is significant abnormality in the trapezium/first metacarpal joint with loss of joint space and fragmentation of the trapezium. Also, some subchondral cyst formation is noted. Chondrocalcinosis is noted in the trigonal fibrocartilage. 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 No evidence of acute osseous abnormality. Examination 94193. Thank you for allowing me to participate in the care of this patient. WSN: [id number] Ordering Physician: Ana Maria Gallo Dictated By: Tc Jorge MD Dictated Date/Time: 02/29/24 2:14 pm Reviewed By: Tc Jorge MD Signed By: Tc Jorge MD Signed Date/Time: 02/29/24 2:14 pm Transcribed By: DEBBIE Transcribed Date/Time: 02/29/24 2:13 pm * Exam Date Time Procedure Performing Provider Status 02/29/24 1:53 PM Knee 1 or 2 Views Left Yolette , Adrianna; Auth (Verified) Notes: (Knee 1 or 2 Views Left) Reason For Exam: with Pain;Trauma RESULT: Knee 1 or 2 Views Left Left knee 2 views dated February 29, 2024. Comparison films are from December 06, 2023. HISTORY: Pain. FINDINGS: Once again, there is a comminuted fracture of the distal femur. A lateral plate and multiple screws is noted fixing the fragments. Alignment is unchanged. There is still lucency demonstrated within the fracture fragments. No acute fracture or dislocation is appreciated. IMPRESSION: No significant interval change in a comminuted fracture of the distal femur. No acute fracture or dislocation is appreciated. Postoperative changes. Examination [id number]. Thank you for allowing me to participate in the care of this patient. WSN: [id number] Ordering Physician: Ana Maria Gallo Dictated By: Tc Jorge MD Dictated Date/Time: 02/29/24 2:13 pm Reviewed By: Tc Jorge MD Signed By: Tc Jorge MD Signed Date/Time: 02/29/24 2:13 pm Transcribed By: DEBBIE Transcribed Date/Time: 02/29/24 2:13 pm * Exam Date Time Procedure Performing Provider Status 02/29/24 1:53 PM Hand Min 3 Views Left Veto De La Vega (Verified) Notes: (Hand Min 3 Views Left) Reason For Exam: with Pain;Trauma RESULT: Hand Min 3 Views Left Left hand 3 views and left wrist 4 views dated February 29, 2024. No prior studies are available. HISTORY: Pain. FINDINGS: This examination shows fragmentation in the region of the trapezium. The scaphoid has an unusual configuration where the distal pole is medially displaced. There is widening of the scapholunate distance. There is loss of joint space in the radiocarpal joint and some chondrocalcinosis is noted in the triangle fibrocartilage. No joint effusion is appreciated. There is loss of joint space in the interphalangeal joints with minimal associated osteophyte formation. No radiopaque foreign body or soft tissue gas is seen. IMPRESSION: Abnormality of the wrist. I do not have old films for comparison however, these findings are most likely the result of chronic old trauma with or without some associated postsurgical changes. Widening of the scapholunate distance consistent with ligamentous injury. Degenerative changes. Examination 01984 and [id number]. Thank you for allowing me to participate in the care of this patient. WSN: [id number] Ordering Physician: Ana Maria Gallo Dictated By: Tc Jorge MD Dictated Date/Time: 02/29/24 2:11 pm Reviewed By: Tc Jorge MD Signed By: Tc Jorge MD Signed Date/Time: 02/29/24 2:11 pm Transcribed By: DEBBIE Transcribed Date/Time: 02/29/24 2:08 pm * Exam Date Time Procedure Performing Provider Status 02/29/24 1:53 PM Wrist Comp Min 3 Views Left Nitesh De La Vega; Lida (Verified) Notes: (Wrist Comp Min 3 Views Left) Reason For Exam: with Pain;Trauma RESULT: Wrist Comp Min 3 Views Left Left hand 3 views and left wrist 4 views dated February 29, 2024. No prior studies are available. HISTORY: Pain. FINDINGS: This examination shows fragmentation in the region of the trapezium. The scaphoid has an unusual configuration where the distal pole is medially displaced. There is widening of the scapholunate distance. There is loss of joint space in the radiocarpal joint and some chondrocalcinosis is noted in the triangle fibrocartilage. No joint effusion is appreciated. There is loss of joint space in the interphalangeal joints with minimal associated osteophyte formation. No radiopaque foreign body or soft tissue gas is seen. IMPRESSION: Abnormality of the wrist. I do not have old films for comparison however, these findings are most likely the result of chronic old trauma with or without some associated postsurgical changes. Widening of the scapholunate distance consistent with ligamentous injury. Degenerative changes. Examination 15250 and 188[address]. Thank you for allowing me to participate in the care of this patient. WSN: [id number] Ordering Physician: Ana Maria Gallo Dictated By: Tc Jorge MD Dictated Date/Time: 02/29/24 2:11 pm Reviewed By: Tc Jorge MD Signed By: Tc Jorge MD Signed Date/Time: 02/29/24 2:11 pm Transcribed By: DEBBIE Transcribed Date/Time: 02/29/24 2:08 pm Vital Signs Most recent to oldest [Reference Range]: 1 2 Oxygen Saturation [94-100 %] 96 % (02/29/24 2:20 PM) 97 % (02/29/24 10:58 AM) Pulse Rate [55-90 bpm] 78 bpm (02/29/24 2:20 PM) 79 bpm (02/29/24 10:58 AM) Blood Pressure [90-138/55-84 mm Hg] 155/ 66mm Hg *H* (02/29/24 2:20 PM) 156/83mm Hg *H* (02/29/24 10:58 AM) Respiratory Rate [16-30 br/min] 16 br/mi n (02/29/24 2:20 PM) 16 br/min (02/29/24 10:58 AM) Temperature [96.8-100.4 DegF] 98.3 DegF (02/29/24 2:20 PM) 98.1 DegF (02/29/24 10:58 AM) Mode of Delivery (Oxygen) Room air (02/29/24 2:20 PM) Room air (02/29/24 10:58 AM) Blood pressure sites Arm, left (02/29/24 2:20 PM) Arm, left (02/29/24 10:58 AM) Temperature Route Oral (02/29/24 2:20 PM) Oral (02/29/24 10:58 AM) Social History Social History Type Response Smoking Status Former smoker; Other : quit smoking 40 years ago; entered on: 08/11/14 Sex Female Note * Swapnil Nicolas MD, Ana Maria: PERFORM Event Display: Patient Education Leaflets Authored Date: [id number] Head Injury (Adult) ?? [id number] Head Injury (Adult) You have a head injury. It doesn't appear serious at this time. But symptoms of a more serious problem, such as a mild brain injury (concussion) or bruising or bleeding in the brain, may appear later. For this reason, you or someone caring for you will need to watch for the symptoms listed below. Once you???re home, also be sure to follow any care directions you???re given. Home care Watch??for the following symptoms Seek emergency medical care if you have any of these symptoms over the next hours to days:? Headache that gets worse or doesn't go away ??? Nausea or vomiting ??? Dizziness ??? Sensitivity to light or noise ??? Unusual sleepiness or grogginess ??? Trouble falling asleep ??? Personality changes ??? Vision changes ??? Memory loss ??? Confusion ??? Trouble walking or clumsiness ??? Loss of consciousness (even for a short time) ??? Inability to be awakened ??? Stiff neck ??? Weakness ornumbness in any part of the body ??? Seizures General care ??? If you were prescribed medicines for pain, use them as directed. Note: Don???t take other medicines for pain without talking to your healthcare provider first. ??? To help reduce swelling and pain, apply a cold source to the injured area for up to 20 minutes at a time. Do this as often??as directed. Use a cold pack or bag of ice wrapped in a thin towel. Never apply a cold source directly to the skin. ??? If you are on a blood thinner for a health condition and have a head injury, follow your healthcare provider's specific directions. You are at a higher risk for bleeding fromthe blood thinner, so your provider will talk to you about taking extra precautions. ??? If you have cuts or scrapes as a result of your head injury, care for them as directed. ??? For the next 24 hours??(or longer, if directed): o Don???t drink alcohol or use sedatives or other medicines that makeyou sleepy. o Don???t drive or operate machinery. o Don???t do anything strenuous, such as heavy lifting or straining. o Limit tasks that need concentration. This includes reading, using a smartphone or computer, watching TV, and playing video games. o Don???t return to sports or other activities that could result in another head injury until approved by your healthcare provider. ?? Follow-up care Follow up with your healthcare provider, or as directed.??If imaging tests were done, they will be reviewed by a healthcare provider. You will be told the results and any new findings that may affectyour care. ?? When to seek medical advice Call your healthcare provider right away if any of the following occur: ??? Pain doesn???t get better or gets worse ??? New or increased swelling or bruising ??? Increased redness,??warmth,??drainage, or bleeding from the injured area ??? Fluid drainage or bleeding from the nose or ears ??? Any depression or bony abnormality in the injured area ??? Persistent confusion or lethargy ??? Personalitychanges ??? Bruising behind the ears or bruising around the eyes ?? Last Reviewed Date: 2022 ?? [id number] [employer]. All rights reserved. This information is not intended as a substitute for professional medical care. Always follow your healthcare professional's instructions. ?? Patient Care team information Care Team Personnel Name: Madina Bliss RN Position: S RN Member Role: Primary Care Nurse Name: Kate Nassar RN Position: [facility] SN RN Member Role: Primary Care Nurse Name: Willow Blankenship RN Position: S RN Member Role: Primary Care Nurse Name: Oscar Dhillon RN Position: S RN Member Role: Primary Care Nurse Name: Luann Chapman MD Position: Reference Physician Member Role: PCP Address: Address: [address] Name: Mayank Quezada RN Position: S RN Member Role: Primary Care Nurse Name: Rony Hong RN Position: S RN Member Role: Primary Care Nurse Name: Amanda Rae RN Position: S RN Member Role: Primary Care Nurse Name: Araceli Vinson RN Position: S RN Member Role: Primary Care Nurse Name: Maryanne Estrada RN Position: S RN Member Role: Primary Care Nurse Name: Brittany Negron RN Position: S RN Member Role: Primary Care Nurse Name: Clarita Miner RN Position: S RN Member Role: Primary Care Nurse Care Team Related Persons Name: KATE GUERRIER Address: [address] [place] [address] Name: ERIC GUERRIER Address: [address] [place] [address]
--- OUTSIDE RECORDS SUMMARY | 2024-03-30 09:54 | XMS_ITS | Continuity of Care Document ---
Author Organization [facility] ter Address [address] [place] [id number]- Care Team Providers Care Steam Shovel Engineer Name Role Phone Ari FLYNN, Luann Mace Primary Care Physician [place] [facility] [place] - 09/21/[address] [address]- [facility] Attending Physician: Suzette De Los Santos MD Allergies, Adverse Reactions, Alerts Substance Reaction Severity Status NKA Active Medications acetaminophen 325 mg oral tablet 650 mg, By Mouth, Every 6 hours, Refills 0, Maintenance, 08/22/19 10:25:00 EDT Start Date: 08/22/19 Status: Ordered bisacodyl 10 mg rectal suppository 1 supp = 10 mg, Rectally, Daily, PRN Constipation, 0 Refills, Maintenance, 08/22/19 10:26:00 EDT, Suppository Start Date: 08/22/19 Status: Ordered Calcium Citrate 315 mg + Vitamin D 250IU Tablet 1 tablet = 315 mg, By Mouth, Every 6 hours, 0 Refills, Maintenance, 08/22/19 10:25:00 EDT, Tablet Start Date: 08/22/19 Status: Ordered Docusate Sodium Capsule 100 mg, 1, capsule, By Mouth, 2 times a day, Refills 0, Maintenance, 08/22/19 10:25:00 EDT Start Date: 08/22/19 Status: Ordered Enoxaparin 0.4 mL = 40 mg, Subcutaneous Injection, Daily, 0 Refills, Maintenance, 08/22/19 10:25:00 EDT, Injection Start Date: 08/22/19 Status: Ordered Milk of Magnesia Liquid 30 mL, By Mouth, Daily, PRN Constipation, 0 Refills, Maintenance, 08/22/19 10:25:00 EDT, Suspension Start Date: 08/22/19 Status: Ordered Multivitamin Daily, 0 Refills, Maintenance, 07/18/19 10:12:00 EST Start Date: 07/18/19 Status: Ordered senna 187 mg oral tablet 2 tablet = 17.2 mg, By Mouth, Daily at bedtime, 0 Refills, Maintenance, 08/22/19 10:26:00 EDT, Tablet Start Date: 08/22/19 Status: Ordered Vital Signs Most recent to oldest [Reference Range]: 1 Height 162.56 cm (08/05/19 1:09 PM) Social History Social History Type Response Smoking Status Former smoker; Other : quit smoking 40 years ago; entered on: 08/11/14 Sex
--- OUTSIDE RECORDS SUMMARY | 2024-03-30 09:54 | XMS_ITS | Continuity of Care Document ---
Author Organization [facility] Address [address] [place] [address]- Care Team Providers Care Car Repairer Helper Name Role Phone Ari FLYNN, Luann Mace Primary Care Physician Encounter 11/17/20 - 12/06/20 [facility] [address] [place] [address]- Discharge Disposition: GOALS MET Allergies, Adverse Reactions, Alerts Substance Reaction Severity Status NKA Active Medications acetaminophen 325 mg oral tablet 650 mg, By Mouth, Every 6 hours, Refills 0, Maintenance, 08/22/19 10:25:00 EDT Start Date: 08/22/19 Status: Ordered Calcium Citrate 315 mg + Vitamin D 250IU Tablet 1 tablet = 315 mg, By Mouth, Every 6 hours, 0 Refills, Maintenance, 08/22/19 10:25:00 EDT, Tablet Start Date: 08/22/19 Status: Ordered ipratropium nasal (OP) 3 times a day, 0 Refills, Maintenance Start Date: 11/02/20 Status: Ordered Multivitamin Daily, 0 Refills, Maintenance, 07/18/19 10:12:00 EST Start Date: 07/18/19 Status: Ordered oxybutynin 10 mg/24 hr oral tablet, extended release 1 tablet = 10 mg, By Mouth, Daily, 0 Refills, Maintenance, 11/02/20 14:14:00 EDT, Partial fill uponpatient request if the prescription is for a schedule II opioid drug. Start Date: 11/02/20 Status: Ordered Vitamin C 500 mg oral tablet 1 tablet = 500 mg, By Mouth, Daily, 0 Refills, Maintenance, 11/02/20 14:17:00 EDT, Partial fill upon patient request if the prescription is for a schedule II opioid drug. Start Date: 11/02/20 Status: Ordered Vitamin D3 2000 intl units oral tablet = 50 mcg, By Mouth, Daily, 0 Refills, Maintenance, 11/02/20 14:17:00 EDT, Partial fill upon patientrequest if the prescription is for a schedule II opioid drug. Start Date: 11/02/20 Status: Ordered Vitamin E By Mouth, Daily, 0 Refills, Maintenance, 11/02/20 14:18:00 EDT, Partial fill upon patient request if the prescription is for a schedule II opioid drug. Start Date: 11/02/20 Status: Ordered Social History Social History Type Response Smoking Status Former smoker; Other : quit smoking 40 years ago; entered on: 08/11/14 Sex Female
--- OUTSIDE RECORDS SUMMARY | 2024-03-30 09:55 | XMS_ITS | Continuity of Care Document ---
Author Organization [facility] Address [address] [place] [phone]- Care Team Providers Care Airplane First Officer Name Role Phone Ari FLYNN, Luann Mace Primary Care Physician Encounter 04/12/21 - 04/17/21 [facility] [address] [place] [phone]- Discharge Disposition: GOALS MET Allergies, Adverse Reactions, Alerts Substance Reaction Severity Status NKA Active Medications acetaminophen 325 mg oral tablet 650 mg, By Mouth, Every 6 hours, May take OTC, not to exceed 4000 mg/day, Refills 0, Maintenance, 04/10/21 11:13:00 EDT, Partial fill upon patient request if the prescription is for a schedule II opioid drug. Start Date: 04/10/21 Status: Ordered Aspirin Tablet 325 mg, By Mouth, 2 times a day, Refills 0, Maintenance, 04/10/21 11:14:00 EDT, Partial fill upon patient request if the prescription is for a schedule II opioid drug. Start Date: 04/10/21 Status: Ordered Calcium Citrate 315 mg + Vitamin D 250IU Tablet 1 tablet = 315 mg, By Mouth, Every 6 hours, 0 Refills, Maintenance, 08/22/19 10:25:00 EDT, Tablet Start Date: 08/22/19 Status: Ordered celecoxib 200 mg oral capsule 1 capsule = 200 mg, By Mouth, Daily, 0 Refills, Maintenance, 04/10/21 11:14:00 EDT, Capsule, Partial fill upon patient request if the prescription is for a schedule II opioid drug. Start Date: 04/10/21 Status: Ordered Colace Capsule 100 mg, 1, capsule, By Mouth, 2 times a day, Hold for loose stools, Refills 0, Maintenance, 04/10/21 11:14:00 EDT, Partial fill upon patient request if the prescription is for a schedule II opioid drug. Start Date: 04/10/21 Status: Ordered ipratropium nasal (OP) 3 times a day, 0 Refills, Maintenance Start Date: 11/02/20 Status: Ordered Maalox Plus Liquid 30 mL, By Mouth, Every 4 hours, PRN Other, Heartburn, 0 Refills, Maintenance, 04/10/21 11:14:00 EDT, Suspension, Partial fill upon patient request if the prescription is for a schedule II opioid drug. Start Date: 04/10/21 Status: Ordered Milk of Magnesia Liquid 30 mL, By Mouth, Daily, PRN Constipation, 0 Refills, Maintenance, 04/10/21 11:14:00 EDT, Suspension, Partial fill upon patient request if the prescription is for a schedule II opioid drug. Start Date: 04/10/21 Status: Ordered MiraLax Powder 1 pack/packet = 17 Gm, By Mouth, Daily, PRN Constipation, 0 Refills, Maintenance, 04/10/21 11:14:00EDT, Powder, Partial fill upon patient request if the prescription is for a schedule II opioid drug. Start Date: 04/10/21 Status: Ordered ondansetron 4 mg oral tablet, disintegrating 1 tablet = 4 mg, By Mouth, Every 8 hours, PRN as needed for nausea/vomiting, for 7 days, # 21 tablet, 0 Refills, Acute 04/18/21 8:36:00 EDT, 04/11/21 8:36:00 EDT, DIS Tablet, [facility], Partial fill upon patient request if the prescript... Start Date: 04/11/21 Stop Date: 04/18/21 Status: Ordered oxybutynin 10 mg/24 hr oral tablet, extended release 1 tablet = 10 mg, By Mouth, Daily, 0 Refills, Maintenance, 11/02/20 14:14:00 EDT, Partial fill uponpatient request if the prescription is for a schedule II opioid drug. Start Date: 11/02/20 Status: Ordered pantoprazole 40 mg oral delayed release tablet = 40 mg, By Mouth, Daily, 0 Refills, Maintenance, 04/10/21 11:14:00 EDT, EC Tablet Start Date: 04/10/21 Status: Ordered senna 187 mg oral tablet 1 tablet = 8.6 mg, By Mouth, Daily at bedtime, PRN as needed for constipation, 0 Refills, Maintenance, 04/10/21 11:14:00 EDT, Tablet, Partial fill upon patient request if the prescription is for a schedule II opioid drug. Start Date: 04/10/21 Status: Ordered Vitamin C 500 mg oral [...]
--- OUTSIDE RECORDS SUMMARY | 2024-03-30 09:55 | XMS_ITS | Continuity of Care Document ---
Author Organization [facility] ter Address [address] [place] [phone]- Care Team Providers Care Checkerer Hand Name Role Phone Ari FLYNN, Luann Mace Primary Care Physician Encounter [facility] Date(s): 08/07/21 - 08/09/[address] [address]- Discharge Disposition: A-Transfer SNF Attending Physician: Arnulfo Riley MD Admitting Physician: Arnulfo Riley MD Referring Physician: Arnulfo Riley MD Allergies, Adverse Reactions, Alerts No Known Allergies Immunizations Given and Recorded Vaccine Date Status Refusal Reason SARS-CoV-2 (COVID-19) mRNA BNT-162b2 vac 05/30/21 Recorded SARS-CoV-2 (COVID-19) mRNA BNT-162b2 vac 08/08/20 Recorded SARS-CoV-2 (COVID-19) mRNA BNT-162b2 vac 07/18/20 Recorded Medications Acetaminophen Tablet 650 mg, Tablet, By Mouth, 08/09/21 4:00:00 EST, Stop date 08/09/21 4:00:00 EST Start Date: 08/09/21 Stop Date: 08/09/21 Status: Completed bisacodyl 10 mg rectal suppository 1 supp = 10 mg, Rectally, Daily, PRN Constipation, 0 Refills, Maintenance, 08/09/21 13:02:00 EST, Suppository, Partial fill upon patient request if the prescription is for a schedule II opioid drug. Start Date: 08/09/21 Status: Ordered Calcium Citrate 315 mg + Vitamin D 250IU Tablet 1 tablet = 315 mg, By Mouth, Every 6 hours, 0 Refills, Maintenance, 08/22/19 10:25:00 EDT, Tablet Start Date: 08/22/19 Status: Ordered Centrum Silver Ultra Women's 1 tablet, By Mouth, Daily, 0 Refills, Maintenance, 07/26/21 18:30:00 EST, Partial fill upon patientrequest if the prescription is for a schedule II opioid drug. Start Date: 07/26/21 Status: Ordered Docusate/Senna Tablet 1 tablet, By Mouth, 2 times a day, 0 Refills, Maintenance, 08/09/21 13:02:00 EST, Tablet, Partial fill upon patient request if the prescription is for a schedule II opioid drug. Start Date: 08/09/21 Status: Ordered Enoxaparin 0.4 mL = 40 mg, Subcutaneous Injection, Every 24 hours, 0 Refills, Maintenance, 08/09/21 13:02:00 EST, Injection, Partial fill upon patient request if the prescription is for a schedule II opioid drug. Start Date: 08/09/21 Status: Ordered Glucosamine Chondroitin 1500mg 1 tablet, By Mouth, 2 times a day, 0 Refills, Maintenance, 07/26/21 18:29:00 EST, Partial fill upon patient request if the prescription is for a schedule II opioid drug. Start Date: 07/26/21 Status: Ordered Milk of Magnesia Liquid 30 mL, By Mouth, Daily, PRN Constipation, 0 Refills, Maintenance, 08/09/21 13:03:00 EST, Suspension, Partial fill upon patient request if the prescription is for a schedule II opioid drug. Start Date: 08/09/21 Status: Ordered MiraLax Powder 1 pack/packet = 17 Gm, By Mouth, Daily, 0 Refills, Maintenance, 08/09/21 13:03:00 EST, Powder, Partial fill upon patient request if the prescription is for a schedule II opioid drug. Start Date: 08/09/21 Status: Ordered oxybutynin 10 mg/24 hr oral tablet, extended release 1 tablet = 10 mg, By Mouth, Daily in AM, 0 Refills, Maintenance, 11/02/20 14:14:00 EDT, Partial fill upon patient request if the prescription is for a schedule II opioid drug. Start Date: 11/02/20 Status: Ordered oxyCODONE 5 mg oral tablet 5 mg, 1, tablet, By Mouth, Every 4 hours, PRN, for 5 days, # 30 tablet, Refills 0, Tot. Refills 0, Acute 08/14/21 12:19:00 EST, Pain , Moderate, 08/09/21 12:19:00 EST, Print Requisition, Partial fillupon patient request if the prescription is for a s... Start Date: 08/09/21 Stop Date: 08/14/21 Status: Ordered OxyCODONE IR Tablet 5 mg, Tablet, By Mouth, Every 4 hours for 5 days, PRN for Pain , Moderate, Routine, 08/07/21 17:39:00 EST, Stop date 08/12/21 17:38:00 EST Start Date: 08/07/21 Stop Date: 08/10/21 Status: Discontinued Tylenol Arthritis Caplet 650 mg 2 tablets, By Mouth, Every 8 hours, 0 Refills, Maintenance, 07/26/21 18:26:00 EST, Partial fill upon patient request if the prescription is for a schedule II opioid drug. Start Date: 07/26/21 Status: Ordered Vitamin C 500 mg oral [...] opioid drug. Start Date: 11/02/20 Status: Ordered Results Radiology Reports * Exam Date Time Procedure Performing Provider Status 08/07/21 4:02 PM C-Arm < 1 Hour Kaylee Rojas (Verified) Notes: (C-Arm < 1 Hour) Reason For Exam: ORIF rt femur RESULT: C-Arm < 1 Hour Right femur 12 intraprocedural fluoroscopic images performed portably in the operating room on August 07, 2021 and 1546 hours. Comparison films are from November 14, 2020 and June 22, 2021. HISTORY: ORIF. Intraprocedural fluoroscopy was utilized. Technologist time was 1 hour. The fluoroscopic time was 1minute and 34 seconds. FINDINGS: A lateral plate and multiple screws is seen along the femur centered on the area of periosteal reaction and healing fracture. Position and alignment is anatomic. IMPRESSION: Placement of a lateral fixation plate. Examination 02828. Thank you for allowing me to participate in the care of this patient. WSN: [id number] Ordering Physician: rAnulfo Riley Dictated By: Tc Jorge MD Dictated Date/Time: 08/07/21 5:32 pm Reviewed By: Tc Jorge MD Signed By: Tc Jorge MD Signed Date/Time: 08/07/21 5:32 pm Transcribed By: DEBBIE Transcribed Date/Time: 08/07/21 5:32 pm * Exam Date Time Procedure Performing Provider Status 08/07/21 4:02 PM XR Femur 2 Views Right Cl Rojas; Auth (Verified) Notes: (XR Femur 2 Views Right) Reason For Exam: ORIF rt femur RESULT: Femur 2 Views Right Right femur 12 intraprocedural fluoroscopic images performed portably in the operating room on August 07, 2021 and 1546 hours. Comparison films are from November 14, 2020 and June 22, 2021. HISTORY: ORIF. Intraprocedural fluoroscopy was utilized. Technologist time was 1 hour. The fluoroscopic time was 1minute and 34 seconds. FINDINGS: A lateral plate and multiple screws is seen along the femur centered on the area of periosteal reaction and healing fracture. Position and alignment is anatomic. IMPRESSION: Placement of a lateral fixation plate. Examination 24030. Thank you for allowing me to participate in the care of this patient. WSN: [id number] Ordering Physician: Arnulfo Riley Dictated By: Tc Jorge MD Dictated Date/Time: 08/07/21 5:32 pm Reviewed By: Tc Jorge MD Signed By: Tc Jorge MD Signed Date/Time: 08/07/21 5:32 pm Transcribed By: DEBBIE Transcribed Date/Time: 08/07/21 5:32 pm Vital Signs Most recent to oldest [Reference Range]: 1 2 3 Height 154.9 cm (08/09/21 6:43 AM) 154.9 cm (08/09/21 4:36 AM) 154.9 cm (08/09/21 12:22 AM) Weight 68.1 kg (08/07/21 1:17 PM) 68.1 kg (07/26/21 6:52 PM) Oxygen Saturation [94-100 %] 94 % (08/09/21 6:43 AM) 94 % (08/09/21 4:36 AM) 94 % (08/09/21:22 AM) Pulse Rate [55-90 bpm] 113 bpm *H* (08/09/21 6:43 AM) 116 bpm *H* (08/09/21 4:36 AM) 108 bpm *H* (08/09/21 12:22 AM) Body Mass Index [18.5-24.99] 28.38 *H* (08/07/21 1:17 PM) 28.38 *H* (07/26/21 6:52 PM) Blood Pressure [90-138/55-84 mm Hg] 102/46mm Hg (08/09/21 6:43 AM) 103/47mm Hg (08/09/21 4:36 AM) 109/40mm Hg (08/09/21 12:22 AM) Respiratory Rate [16-30 br/min] 16 br/min (08/09/21 12:26 PM) 16 br/min (08/09/21 12:26 PM) 18 br/min (08/09/21 11:26 AM) Temperature [96.8-100.4 DegF] 99.4 DegF (08/09/21 6:43 AM) 98.4 DegF (08/09/21 4:36 AM) 99.1 DegF (08/09/21 12:22 AM) Mode of Delivery (Oxygen) Room air (08/09/21 6:43 AM) Room air (08/09/21 4:36 AM) Room air (08/09/21 12:22 AM) Blood pressure sites Arm, left (08/09/21 6:43 AM) Arm, left (08/08/21 7:20 PM) Arm, left (08/08/21 3:02 PM) Temperature Route Oral (08/09/21 6:43 AM) Oral (08/09/21 4:36 AM) Oral (08/09/21 12:22 AM) Dry Weight 64.3 kg (08/07/21 1:17 PM) 68.1 kg (07/26/21 6:52 PM) Weight Obtained Via Patient/family state d (07/26/21 6:52 PM) Dry Weight Obtained Via Standing scale (08/07/21 1:17 PM) Patient/family stated (07/26/21 6:52 PM) Social History Social History Type Response Smoking Status Former smoker; Other : quit smoking 40 years ago; entered on: 08/11/14 Sex Female
--- OUTSIDE RECORDS SUMMARY | 2024-03-30 09:55 | XMS_ITS | Continuity of Care Document ---
Author Organization [facility] ter Address [address] [place] [phone]- Care Team Providers Care Air Conditioning Unit Assembler Name Role Phone Ari FLYNN, Luann Mace Primary Care Physician Encounter [facility] Date(s): 02/24/21 - 04/25/[address] [address]- Attending Physician: Niranjan San MD Admitting Physician: Niranjan San MD Referring Physician: Niranjan San MD Allergies, Adverse Reactions, Alerts Substance Reaction [...] opioid drug. Start Date: 04/10/21 Status: Ordered oxybutynin 10 mg/24 hr oral [...]
--- OUTSIDE RECORDS SUMMARY | 2024-03-30 09:55 | XMS_ITS | Continuity of Care Document ---
Author Organization [facility] Address [address] [place] [address]- Care Team Providers Care Environmental Field Technician Name Role Phone Ari FLYNN, Luann Mace Primary Care Physician Encounter 08/24/21 - 09/13/21 [facility] [address] [place] [address]- Discharge Disposition: GOALS MET Allergies, Adverse Reactions, Alerts No Known Allergies Immunizations Given and Recorded Vaccine Date Status Refusal Reason SARS-CoV-2 (COVID-19) mRNA BNT-162b2 vac 05/30/21 Recorded SARS-CoV-2 (COVID-19) mRNA BNT-162b2 vac 08/08/20 Recorded SARS-CoV-2 (COVID-19) mRNA BNT-162b2 vac 07/18/20 Recorded Medications bisacodyl 10 mg rectal suppository 1 supp [...] opioid drug. Start Date: 11/02/20 Status: Ordered Tylenol Arthritis Caplet 650 mg 2 tablets, [...]
--- OUTSIDE RECORDS SUMMARY | 2024-03-30 09:55 | XMS_ITS | Continuity of Care Document ---
Author Organization [facility] ter Address [address] [place] [id number]- Care Team Providers Care Director Of Home Health Services Name Role Phone Ari FLYNN, Luann Mace Primary Care Physician Encounter [facility] Date(s): 07/14/23 - 07/17/[address] [id number] Encounter Diagnosis Femur fracture, left(Final) - 07/14/23 Fall(Final) - 07/14/23 Fibula fracture(Final) - 07/14/23 Atrial fibrillation with RVR(Final) - 07/14/23 Atrial fibrillation, new onset(Final) - 07/14/23 Discharge Disposition: A-Transfer SNF Attending Physician: Sherley Meza MD Admitting Physician: Daniel Mcarthur MD Referring Physician: Not on Staff, Referring MD Allergies, Adverse Reactions, Alerts No Known Allergies Immunizations Given and Recorded Vaccine Date Status Refusal Reason SARS-CoV-2 (COVID-19) mRNA BNT-162b2 vac 05/30/21 Recorded SARS-CoV-2 (COVID-19) mRNA BNT-162b2 vac 08/08/20 Recorded SARS-CoV-2 (COVID-19) mRNA BNT-162b2 vac 07/18/20 Recorded Medications ammonium lactate 12% topical cream [...] Date: 07/14/23 Stop Date: 07/24/23 Status: Ordered Flexeril 10 mg oral tablet 10 mg, Tablet, By Mouth, 07/17/23 15:00:00 EST Start Date: 07/17/23 Stop Date: 07/17/23 Status: Completed glucosamine 500 mg oral tablet 1 tablet = 500 mg, By Mouth, Daily, Maintenance, 07/15/23 13:13:00 EST, Partial fill upon patient request if the prescription is for a schedule II opioid drug. Start Date: 07/15/23 Status: Ordered metoprolol 25 mg oral tablet 25 mg, Tablet, By Mouth, 07/17/23 14:00:00 EST Start Date: 07/17/23 Stop Date: 07/17/23 Status: Completed metoprolol succinate 50 mg oral capsule, extended [...] opioid drug. Start Date: 05/25/22 Status: Ordered oxyCODONE 5 mg oral tablet 5 mg, Tablet, By Mouth, Every 4 hours, may give less in 2.5 mg increments, hold for sedation, PRN for Pain , Severe, Routine, 07/15/23 18:22:00 EST Start Date: 07/15/23 Stop Date: 07/18/23 Status: Discontinued oxyCODONE 5 mg oral tablet 5 mg, 1, tablet, By Mouth, Every 6 hours, PRN, for 5 days, # 20 tablet, Refills 0, Tot. Refills 0, Acute 07/22/23 13:02:00 EST, as needed for pain, 07/17/23 13:02:00 EST, Print Requisition, Partial fill upon patient request if the prescription is for... Start Date: 07/17/23 Stop Date: 07/22/23 Status: Ordered rivaroxaban 20 mg oral tablet [...] opioid drug. Start Date: 07/15/23 Status: Ordered Procedures Procedure Date Related Diagnosis Body Site Status Open treatment of bimalleola r ankle fracture (eg, lateral and medial malleoli, or lateral and posterior malleoli, or medial and posterior malleoli), includes internal fixation, when performed 1 07/15/23 Completed Open treatment of femoral remy pracondylar or transcondylar fracture with intercondylar extension, includes internal fixation, when performed 2 07/15/23 Completed 1Percutaneous fixation of medial malleolus with 2 longitudinal screws, 190 mm, and 185 mm bicorticalmedially, and additional 90 mm intramedullary screw in the fibula. 2Synthes Queenie plate,10 hole Results Radiology Reports * Exam Date Time Procedure Performing Provider Status 07/15/23 5:41 PM Ankle Min 3 Views Left Charli Andrews; Modified Notes: (Ankle Min 3 Views Left) Reason For Exam: Left Ankle FX ORIF RESULT: Ankle Min 3 Views Left Femur 2 Views Left, Ankle Min 3 Views Left INDICATION: Reason: Left Femur FX ORIF COMPARISONS: None TECHNIQUE: Fluoroscopy support was provided. There was no radiologist in attendance. FLUOROSCOPY TIME: 2 minutes 59.1 seconds EXPOSURE: 24.25 mGy (reference air kerma) TECHNOLOGIST TIME: 1 hour 10 minutes FINDINGS: 5 fluoroscopic images of the left mid to distal femur in frontal and lateral projection obtained inthe operating room by the portable image intensifier show a left lateral side plate and multiple screws transfixing a significantly comminuted distal left femoral fracture. Please refer to the operative report for more details. IMPRESSION: See above. WSN: [id number] Ordering Physician: Saurav Rojas Dictated By: Alfredo Abreu MD, V Dictated Date/Time: 07/16/23 9:41 am Reviewed By: Alfredo Abreu MD, V Signed By: Alfredo Abreu MD, V Signed Date/Time: 07/16/23 9:41 am Transcribed By: DEBBIE Transcribed Date/Time: 07/16/23 9:39 am * Exam Date Time Procedure Performing Provider Status 07/15/23 5:41 PM XR Femur 2 Views Left Charli Andrews; M odified Notes: (XR Femur 2 Views Left) Reason For Exam: Left Femur FX ORIF RESULT: Femur 2 Views Left Femur 2 Views Left, Ankle Min 3 Views Left INDICATION: Reason: Left Femur FX ORIF COMPARISONS: None TECHNIQUE: Fluoroscopy support was provided. There was no radiologist in attendance. FLUOROSCOPY TIME: 2 minutes 59.1 seconds EXPOSURE: 24.25 mGy (reference air kerma) TECHNOLOGIST TIME: 1 hour 10 minutes FINDINGS: 5 fluoroscopic images of the left mid to distal femur in frontal and lateral projection obtained inthe operating room by the portable image intensifier show a left lateral side plate and multiple screws transfixing a significantly comminuted distal left femoral fracture. Please refer to the operative report for more details. IMPRESSION: See above. WSN: [id number] Ordering Physician: Saurav Rojas Dictated By: Alfredo Abreu MD, V Dictated Date/Time: 07/16/23 9:41 am Reviewed By: Alfredo Abreu MD, V Signed By: Alfredo Abreu MD, V Signed Date/Time: 07/16/23 9:41 am Transcribed By: DEBBIE Transcribed Date/Time: 07/16/23 9:39 am * Exam Date Time Procedure Performing Provider Status 07/15/23 5:41 PM C-Arm > 1 Hour Madhuri Andrews (Ve rified) Notes: (C-Arm > 1 Hour) Reason For Exam: Left Femur FX ORIF RESULT: C-Arm > 1 Hour C-Arm > 1 Hour INDICATION: Reason: Left Femur FX ORIF COMPARISONS: None TECHNIQUE: Fluoroscopy support was provided. There was no radiologist in attendance. FLUOROSCOPY TIME: 2 minutes, 59.1 seconds EXPOSURE: 24.25 mGy TECHNOLOGIST TIME: 1 hour, 10 minutes FINDINGS: Fluoroscopy support was provided. There was no radiologist in attendance. IMPRESSION: See above. WSN: [id number] Ordering Physician: Saurav Rojas Dictated By: Tc Jorge MD Dictated Date/Time: 07/16/23 8:34 am Reviewed By: Tc Jorge MD Signed By: Tc Jorge MD Signed Date/Time: 07/16/23 8:34 am Transcribed By: DEBBIE Transcribed Date/Time: 07/15/23 7:42 pm * Exam Date Time Procedure Performing Provider Status 07/14/23 2:57 PM Pelvis 1 or 2 Views Abhijeet Davidh (Verified) Notes: (Pelvis 1 or 2 Views) Reason For Exam: With Pain;Trauma RESULT: Pelvis 1 or 2 Views Femur 2 Views Left, Pelvis 1 or 2 Views, 2 views Hx of Present Illness: Pt. Coming from home. Walking down steps, fell down two stairs. Pt. Has swelling to L knee and endorses L knee pain. COMPARISON: Pelvis x-rays, 05/25/2022. FINDINGS: Pelvic ring is intact. Bones are osteopenic. Postoperative changes are seen from ORIF in the right hip. Visualized right hip hardware is intact. Sacrum is obscured by bowel gas. There is no fracture in the left hip. Left femoral head contour is preserved well-circumscribed lucency within the proximal femoral neck is unchanged from prior exams. There is a severely comminuted and displaced fracture through the distal femoral metaphysis with slight posterior apex angulation. A rounded calcific density is also seen along the anteromedial distal femur adjacent to the fracture site. This is of unclear etiology, possibly displaced fabella. There is no evidence of intra-articular extension. Significant surrounding soft tissue swelling is seen around the distal femur with probable hematomain the subcutaneous fat above the patella. IMPRESSION: Severely comminuted and displaced fracture through the distal left femoral metaphysis. This includes a rounded calcific density along the anteromedial margin of the fracture, of unclear etiology, possibly a displaced fabella. WSN: [id number] Ordering Physician: Tiffanie Valle Dictated By: Diana Butlre MD Dictated Date/Time: 07/14/23 3:35 pm Reviewed By: Diana Butler MD Signed By: Diana Butler MD Signed Date/Time: 07/14/23 3:35 pm Transcribed By: DEBBIE Transcribed Date/Time: 07/14/23 3:29 pm * Exam Date Time Procedure Performing Provider Status 07/14/23 2:57 PM XR Femur 2 Views Left Abhijeet David (Verified) Notes: (XR Femur 2 Views Left) Reason For Exam: with Pain;Trauma RESULT: Femur 2 Views Left Femur 2 Views Left, Pelvis 1 or 2 Views, 2 views Hx of Present Illness: Pt. Coming from home. Walking down steps, fell down two stairs. Pt. Has swelling to L knee and endorses L knee pain. COMPARISON: Pelvis x-rays, 05/25/2022. FINDINGS: Pelvic ring is intact. Bones are osteopenic. Postoperative changes are seen from ORIF in the right hip. Visualized right hip hardware is intact. Sacrum is obscured by bowel gas. There is no fracture in the left hip. Left femoral head contour is preserved well-circumscribed lucency within the proximal femoral neck is unchanged from prior exams. There is a severely comminuted and displaced fracture through the distal femoral metaphysis with slight posterior apex angulation. A rounded calcific density is also seen along the anteromedial distal femur adjacent to the fracture site. This is of unclear etiology, possibly displaced fabella. There is no evidence of intra-articular extension. Significant surrounding soft tissue swelling is seen around the distal femur with probable hematomain the subcutaneous fat above the patella. IMPRESSION: Severely comminuted and displaced fracture through the distal left femoral metaphysis. This includes a rounded calcific density along the anteromedial margin of the fracture, of unclear etiology, possibly a displaced fabella. WSN: [id number] Ordering Physician: Tiffanie Valle Dictated By: Diana Butler MD Dictated Date/Time: 07/14/23 3:35 pm Reviewed By: Diana Butler MD Signed By: Diana Butler MD Signed Date/Time: 07/14/23 3:35 pm Transcribed By: DEBBIE Transcribed Date/Time: 07/14/23 3:29 pm * Exam Date Time Procedure Performing Provider Status 07/14/23 2:57 PM Ankle Min 3 Views Left Isabelle David ; Lida (Verified) Notes: (Ankle Min 3 Views Left) Reason For Exam: with Pain;Trauma RESULT: Ankle Min 3 Views Left Examination: Left ankle performed on 07/14/2023. History: Hx of Present Illness: Pt. coming from home. Walking down steps, fell down two stairs. Pt.has swelling to L knee and endorses L knee pain. CMS intact in L foot. Pt. denies LOC or headstrike. Pt. not on thinners; Reason: Trauma; with Pain; Clinical Question(s): Fracture Findings: Frontal, oblique, and lateral views of the left ankle are submitted. The mortise is preserved. Osteopenia is present. An oblique, nondisplaced distal fibular fracture is seen on the lateral view. There is cortical irregularity of the medial malleolus which could represent a nondisplaced fracture. A screw within the foot is incompletely imaged. No significant soft tissue swelling is present. IMPRESSION: Distal fibular fracture. Possible nondisplaced medial malleolar fracture. An actionable message ([place]) has been communicated via the [employer] system on 07/14/2023 3:05 PM, Message ID [id number]. WSN: [id number] Ordering Physician: Tiffanie Valle Dictated By: Yohana Gayle MD Dictated Date/Time: 07/14/23 3:05 pm Reviewed By: Yohana Gayle MD Signed By: Yohana Gayle MD Signed Date/Time: 07/14/23 3:05 pm Transcribed By: DEBBIE Transcribed Date/Time: 07/14/23 3:04 pm * Exam Date Time Procedure Performing Provider Status 07/14/23 2:57 PM Chest Single Frontal View Nuzhat David; Modified Notes: (Chest Single Frontal View) Reason For Exam: Pain;Other: RESULT: Chest Single Frontal View Chest Single Frontal View Hx of Present Illness: Pt. coming from home. Walking down steps, fell down two stairs. Pt. has swelling to L knee and endorses L knee pain. CMS intact in L foot. Pt. denies LOC or headstrike. Pt. noton thinners; Reason: Other:; Pain; Clinical Question(s): Other:; Fracture, pneumothorax, pulmonary contusion COMPARISON: 05/25/2022 FINDINGS: The cardiac silhouette is at the upper limits of normal for size. The lungs are clear. No displacedfractures are present. IMPRESSION: There is no acute cardiopulmonary disease. WSN: [id number] Ordering Physician: Tiffanie Valle Dictated By: Yohana Gayle MD Dictated Date/Time: 07/14/23 3:03 pm Reviewed By: Yohana Gayle MD Signed By: Yohana Gayle MD Signed Date/Time: 07/14/23 3:03 pm Transcribed By: DEBBIE Transcribed Date/Time: 07/14/23 3:02 pm Vital Signs Most recent to oldest [Reference Range]: 1 2 3 Height 155 cm (07/17/23 2:59 PM) 155 cm (07/17/23 12:23 PM) 155 cm (07/17/23 10:56 AM) Weight 61.8 kg (07/15/23 10:19 AM) 61.8 kg (07/15/23 9:30 AM) Oxygen Saturation [94-100 %] 97 % (07/17/23 12:23 PM) 97 % (07/17/23 10:56 AM) 93 % *L* (07/17/23 6:44 AM) Pulse Rate [55-90 bpm] 100 bpm *H* (07/17/23 2:29 PM) 100 bpm *H* (07/17/23 12:23 PM) 91 bpm *H* (07/17/23 10:56 AM) Body Mass Index [18.5-24.99 kg/m2] 25.72 kg/m2 *H* (07/15/23 10:19 AM) 25.72 kg/m2 *H* (07/15/23 9:30 AM) Blood Pressure [90-138/55-84 mm Hg] 113/44mm Hg (07/17/23 2:29 PM) 113/44mm Hg (07/17/23 12:23 PM) 117/54mm Hg (07/17/23 10:56 AM) Respiratory Rate [16-30 br/min] 20 br/min (07/17/23 2:59 PM) 18 br/min (07/17/23 2:29 PM) 18 br/min (07/17/23 2:29 PM) Temperature [96.8-100.4 DegF] 98.8 DegF (07/17/23 12:23 PM) 98.1 DegF (07/17/23 10:56 AM) 98.2 DegF (07/17/23 6:44 AM) Liters per Minute 2 L/min (07/15/23 7:26 PM) 3 L/min (07/15/23 6:45 PM) 3 L/min (07/15/23 6:30 PM) Mode of Delivery (Oxygen) Room air (07/17/23 12:23 PM) Room air (07/17/23 10:56 AM) Room air (07/17/23 6:44 AM) Blood pressure sites Arm, left (07/17/23 12:23 PM) Arm, left (07/17/23 2:35 AM) Arm, left (07/17/23 1:10 AM) Temperature Route Oral (07/17/23 12:23 PM) Oral (07/17/23 10:56 AM) Oral (07/17/23 6:44 AM) Dry Weight 61.8 kg (07/15/23 10:19 AM) 61.8 kg (07/15/23 9:30 AM) Weight Obtained Via Patient/family state d (07/15/23 9:30 AM) Social History Social History Type Response Smoking Status Former smoker; Other : quit smoking 40 years ago; entered on: 08/11/14 Sex Female Admission evaluation note * Berny FLYNN, Dinora: PERFORM, MODIFY, MODIFY, MODIFY Event Display: Admission Note Authored Date: [id number] Patient: ??JEWELL GUERRIER ? Age:??78 Years?Sex:??Female?:??1945?? Chief Complaint/Reason for Consultation Pt. coming from home. Walking down steps, fell down two stairs. Pt. has swelling to L knee and endorses L knee pain. CMS intact in L foot. Pt. denies LOC or headstrike. Pt. not on thinners. History of Present Illness Patient is a 78-year-old female with a history of osteoarthritis, overactive bladder, carpal tunnelsyndrome, right femoral periprosthetic fracture, presents to the ED with complaints of left leg pain after she fell down some stairs at home.?? Patient states that she does not remember ever being lightheaded or dizzy but all she recalls was her falling down the stairs. She denies losing consciousness or hitting her head.?? She was able to call her daughter in law who arrived 50 minutes later andcalled EMS and they got her to the ED.? On arrival to??the ED, patient was noted to be normotensive with elevated heart rate while also being afebrile and requiring requiring 2 L of nasal cannula to maintain adequate saturation.?? Lab was remarkable for elevated WBC of 13.7, normal hemoglobin, normal platelet count, normal electrolytes with elevated blood sugar 152 elevated BUN of 26, low creatinine of 0.4 and low total protein of 6.1,with normal TSH of 1.52.?? EKG showed atrial fibrillation with RVR??and??x-ray of ankle showed leftdistal fibular fracture with possible nondisplaced medial malleolar fracture. x-ray of femur showedseverely comminuted and displaced fracture through the distal left femoral metaphysis.?? Patient was given 25 mcg fentanyl IV push, and 975 mg Tylenol, 0.5 mg Dilaudid for pain control and 2.5 mg metoprolol for rate control with 2 g IV cefazolin for possible infection.?? Orthopedics was consulted and recommended patient for possible surgery tomorrow for patient to be made n.p.o. after midnight. ?? Patient was seen laying at bedside in no distress,??patient states that she has had multiple falls in the past and has fractured??her??right hip twice, that??during??those falls her legs gave out,she never lost consciousness??was similar to??fall that she had today.?? She denies any palpitationand??states that her breathing is fine and??that she is not very active at home??but is able to go grocery shopping by herself.??rubber cutting machine tender saw the patient and explained to her that she is going to need an echo after her surgical procedure tomorrow.?? Patient complains of nausea and new onset headache that started in the ED. Patient denies any chest pain, shortness of breath, palpitation or lightheadedness or dizziness or headache or neck pain or vomiting or diarrhea.?? Review of Systems Constitutional: No fever, chills or rigors?? HEENT: No headache, no blurred vision, no sorethroat?? Cardiac: No Chest pain, No palpitations, No light headedness?? Respiratory: no shortness of breath, no cough?? Gastrointestinal: No diarrhea or constipation, no nausea or abdominal pain?? Genitourinary: No Urinary frequency, urgency or dysuria?? Musculoskeletal: No muscle or bone pain?? Neurological: No headache, blurred vision, tingling or numbness or any weakness?? Extremities: no weakness, swelling or pain?? Skin: No itching, rash, bumps, hair and/or nail changes, de/pigmentation?? Objective ? Vital Signs?? Temperature: 97.6 DegF (07/14/23:21:00) Temperature Route: Oral (07/14/23::) Pulse Rate:??112 bpm??High (07/14/23:21:) Respiratory Rate: 20 br/min (07/14/23:21:) Systolic Blood Pressure: 116 mm Hg (07/14/23::) Diastolic Blood Pressure: 82 mm Hg (07/14/23:21:) Blood pressure sites: Arm, right (07/14/23::) Mean Arterial Pressure: 84 mm Hg (07/14/23 18:17:00) Pulse Pressure: 34 mm Hg (07/14/23::) Oxygen Saturation: 95 % (07/14/23::00) Liters per Minute: 2 L/min (07/14/23::) Mode of Delivery (Oxygen): Nasal cannula (07/14/23::00) Early Warning Score: 6 (07/14/23:24:) ? Physical Exam General:??Patient in no acute distress?? HEENT:??normocephalic, atraumatic, PERRLA, EOMI, moist mucous membranes Respiratory:??bilateral equal air entry, clear to auscultation with no wheezes or crackles. CVS:??regular rate and rhythm, S1 and S2 present, no murmurs, rubs or gallops. No JVD.?Mild basilar crackles on the??right lung Abdomen:??soft, non tender, non distended, bowel sounds present, Extremities:??no cyanosis, pulses present and equal bilaterally. . ??Mild bilateral pedal edema.?? Neuro:??alert and oriented x3. Cranial nerves II-XII grossly intact. Moving all extremities spontaneously. Derm:??No signs of infection, ?? Assessment/Plan Patient is a 78-year-old female with a history of osteoarthritis, overactive bladder, carpal tunnelsyndrome, right femoral periprosthetic fracture, presents to the ED with complaints of left leg pain after she fell down some stairs at home. ??Found to have atrial fibrillation. ??Scheduled for??orthopedic surgery tomorrow. ??Admitted for??further workup for atrial fibrillation. ??Cardiology following. ? Atrial fibrillation with RVR ??(I48.91) Atrial fibrillation, new onset ??(I48.91) Patient found to have new onset atrial fibrillation. ??[id number]-DTLn of 3 Unsure of etiology of atrial fibrillation, could be due to??being in setting of?trauma??versus infection as patient noted to have elevated WBC count on labs. Patient will need to get a transthoracic echo after surgery. ??We plan to start patient on metoprolol tartrate twice daily for rate control??with as needed IV Lopressor??for heart rate greater than 150. We will hold anticoagulation for now??to be started after surgery tomorrow. ?? Plan -Metoprolol titrate 25 mg twice daily -5 mg IV Lopressor as needed heart rate greater than 150 -Plan to obtain??ZAHIDA after surgery tomorrow -Appreciate cardiology recommendations ? Fall ??(W19.XXXA) Femur fracture, left ??(S72.92XA) Fibula fracture ??(S82.409A) Patient's fall most likely mechanical in nature,??she denies any syncope or syncopal??episode or dizziness prior to fall. Orthopedics following and patient is scheduled for surgery tomorrow. ?? Patient most likely benefit from physical and Occupational Therapy ?? Plan -Orthopedic surgery tomorrow -Appreciate Ortho recs ? Leukocytosis Could be reactive in setting of fall. Patient states that she gets??cortisone injection in both wrist??for carpal tunnel??syndrome??every3 months. She said that she got her last cortisone shots??prior to [place] last year.?? Low suspicion for steroid-induced leukocytosis. Patient is known to take oxybutynin at home for??overactive bladder.?? Oxybutynin is known to causeurinary retention which could be a nidus for UTI. We plan to obtain UA??and reassess. ?? Plan -Obtain UA -Stop cefazolin ? Nausea Unsure of etiology of nausea, could be stress driven ?? Plan - 5 mg IV Zofran??every 6??as needed for nausea and vomiting ? Chronic stable medical conditions Osteoarthritis--topical diclofenac, 100 mg gabapentin Overactive bladder??--10 mg oxybutynin XL ? QUALITY MEASURES Code status: DNR/DNI Diet: NPO DVT prophylaxis: holding for surgery Ongoing medical needs: surgery and afib workup ? Patient was seen and discussed with attending, Dr Joyner ?? Dinora Arrieta MD.? PGY 1, Internal medicine Available on [employer] ??07/15/2022 ? Histories Allergies Allergies ?(Active and Proposed Allergies Only) NKA? (Severity: Unknown severity, Onset: Unknown) ? Past Medical History/Problem List No problems documented. ? Past Surgical History rt hip replacemen rt knee replacement tonsilectomy appendectomy cholesycetomy hysterectomy ? Social History Tobacco Details:??Former smoker, Other: quit smoking 40 years ago. ? Family History No family history recorded. ? Medications Home Medications Acetaminophen (Tylenol 325 mg oral tablet)?650?Milligram?2?tablet?By Mouth?Every 6 hours Ascorbic Acid (Vitamin C)?1?tab(s)?By Mouth?Daily Bisacodyl (bisacodyl 10 mg rectal suppository)?1?suppository(ies)?10?Milligram?Rectal ly?Daily?as needed?Constipation Cholecalciferol?1?capsule?By Mouth?Daily Enoxaparin?0.4?Milliliter?40?Milligram?Subcutaneous Injection?Daily Glucosamine?1?capsule?By Mouth?2 times a day Hydrocortisone Topical (hydrocortisone 2.5% topical cream)?USE 1 APPLICATION RECTALLY 2 TO 4 TIMES A DAY NEEDED FOR HEMORRHOIDS Milk of Magnesia (Milk of Magnesia Liquid)?30?Milliliter?By Mouth?2 times a day?as needed?Constipation Miscellaneous Rx (Allergy Med)?1?tab(s)?By Mouth?Daily Multivitamin?1?tab(s)?By Mouth?Daily Oxybutynin (oxybutynin 10 mg/24 hr oral tablet, extended release)?1?tab(s)?10?Milligram?By Mouth?Daily Senna (Senna 8.6 mg oral tablet)?8.6?Milligram?1?tab(s)?By Mouth?Daily ? Inpatient Medications Medications (10) Active SCHEDULED: (2) CeFAZolin 2 Gm Inj (ceFAZolin Inj) ??2 Gm, IV Push, Once NaCl 0.9% Flush 3ml (NaCL 0.9% Flush) ??3 mL, IV Push, Every 8 hours CONTINUOUS: (0) PRN: (8) Acetaminophen 325 mg Tablet (Acetaminophen Tablet) ??650 mg, By Mouth, Every 4 hours Dextromethorphan-Guaifenesin 20 mg-200 mg/10 mL Liqu UD (Robitussin DM Liquid) ??10 mL, By Mouth, Every 4 hours Docusate Sodium 100 mg Capsule (Docusate Sodium Capsule) ??100 mg 1 capsule, By Mouth, 2 times a day Melatonin 3 mg Tablet (Melatonin Tablet) ??3 mg, By Mouth, Daily at bedtime NaCl 0.9% Flush 3ml (NaCL 0.9% Flush) ??3 mL, IV Push, Every 8 hours Polyethylene Glycol 17 Gm Powder (MiraLax Powder) ??17 Gm 1 pack/packet, By Mouth, Daily Senna Tablet ??8.6 mg 1 tablet, By Mouth, 2 times a day Simethicone 80 mg Chewable Tablet (Simethicone Tablet) ??80 mg, Chew, 3 times a day ? Results Recent Labs BLOOD COUNT & DIFF WBC 13.7 k/mm3 (High)?? 07/14/2023 13:20 RBC 4.52 m/mm3 ()?? 07/14/2023 13:20 Hgb 14.3 Gm/dL ()?? 07/14/2023 13:20 Hct 43.5 % ()?? 07/14/2023 13:20 MCV 96.2 femtoliters ()?? 07/14/2023 13:20 MCH 31.6 pg ()?? 07/14/2023 13:20 MCHC 32.9 g/dL (Low)?? 07/14/2023 13:20 Platelet Count 262 k/mm3 ()?? 07/14/2023 13:20 RDW-SD 49.6 femtoliters (High)?? 07/14/2023 13:20 MPV 11.0 femtoliters ()?? 07/14/2023 13:20 Nucleated RBC (Automated) 0.0 #/100 WBC'S ()?? 07/14/2023 13:20 Abs. NRBC 0.0 k/mm3 ()?? 07/14/2023 13:20 Abs. Neut 10.2 k/mm3 (High)?? 07/14/2023 13:20 Abs. Lymph 2.7 k/mm3 ()?? 07/14/2023 13:20 Abs. Gilmer 0.6 k/mm3 ()?? 07/14/2023 13:20 Abs. Eo 0.1 k/mm3 ()?? 07/14/2023 13:20 Abs. Baso 0.1 k/mm3 ()?? 07/14/2023 13:20 Neut % 74.6 % ()?? 07/14/2023 13:20 Lymph % 19.9 % ()?? 07/14/2023 13:20 Gilmer % 4.1 % (Low)?? 07/14/2023 13:20 Eos % 0.4 % ()?? 07/14/2023 13:20 Baso % 0.5 % ()?? 07/14/2023 13:20 Imm Gran 0.5 % ()?? 07/14/2023 13:20 Abs. Imm Gran 0.1 k/mm3 ()?? 07/14/2023 13:20 ?? CHEM GENERAL Sodium 140 mmol/L ()?? 07/14/2023 13:20 Potassium 3.9 mmol/L ()?? 07/14/2023 13:20 Chloride 101 mmol/L ()?? 07/14/2023 13:20 Bicarbonate Level 24 mmol/L ()?? 07/14/2023 13:20 Anion Gap 15 ()?? 07/14/2023 13:20 Glucose Level 152 mg/dL (High)?? 07/14/2023 13:20 BUN 26 mg/dL (High)?? 07/14/2023 13:20 Creatinine-Blood 0.4 mg/dL (Low)?? 07/14/2023 13:20 Estimated GFR Creatinine 99 ML/MIN/1.73 M2 ()?? 07/14/2023 13:20 Calcium 10.4 mg/dL ()?? 07/14/2023 13:20 Calcium, Ionized pH Corrected 1.32 mmol/L ()?? 07/14/2023 13:20 Magnesium 2.2 mg/dL ()?? 07/14/2023 13:20 Protein, Total 6.1 Gm/dL (Low)?? 07/14/2023 13:20 Albumin 4.2 Gm/dL ()?? 07/14/2023 13:20 AG Ratio 2.2 ()?? 07/14/2023 13:20 Alkaline Phosphatase 93 units/L ()?? 07/14/2023 13:20 AST (SGOT) 22 units/L ()?? 07/14/2023 13:20 ALT (SGPT) 15 units/L ()?? 07/14/2023 13:20 Bilirubin, Total 0.6 mg/dL ()?? 07/14/2023 13:20 ?? ENDOCRINE/TUMOR MARKER TSH 1.52 uIU/mL ()?? 07/14/2023 13:20 ? Abnormal Labs ?? BLOOD COUNT & DIFF ??Abs. Imm Gran ??0.1 k/mm3 () ??07/14/2023 13:20 ??Abs. NRBC ??0.0 k/mm3 () ??07/14/2023 13:20 ??Abs. Neut ??10.2 k/mm3 (High) ??07/14/2023 13:20 ??Imm Gran ??0.5 % () ??07/14/2023 13:20 ??MCHC ??32.9 g/dL (Low) ??07/14/2023 13:20 ??Gilmer % ??4.1 % (Low) ??07/14/2023 13:20 ??Nucleated RBC (Automated) ??0.0 #/100 WBC'S () ??07/14/2023 13:20 ??RDW-SD ??49.6 femtoliters (High) ??07/14/2023 13:20 ??WBC ??13.7 k/mm3 (High) ??07/14/2023 13:20 ? CHEM GENERAL ??AG Ratio ??2.2 () ??07/14/2023 13:20 ??BUN ??26 mg/dL (High) ??07/14/2023 13:20 ??Creatinine-Blood ??0.4 mg/dL (Low) ??07/14/2023 13:20 ??Estimated GFR Creatinine ??99 ML/MIN/1.73 M2 () ??07/14/2023 13:20 ??Glucose Level ??152 mg/dL (High) ??07/14/2023 13:20 ??Protein, Total ??6.1 Gm/dL (Low) ??07/14/2023 13:20 ? Note: Critical results are displayed in red. ? Blood Glucose Trend Glucose Level:??152 mg/dL??High (07/14/23 13:20:00) ? US Heart * Event Display: Echocardiogram - Complete Authored Date: [id number] Transthoracic Echocardiography Report (TTE) Patient Demographics Patient Name JEWELL GUERRIER Date of Study 07/15/2023 Corporate Gender Female Facility Race Ethnicity Date of 1945 Height: 64.57 inches Age 78 year(s) Weight: 138.89 pounds Accession Number [id number] BSA: 1.69 m2 Room Number [id number] BMI: 23.42 kg/m2 Referring Physician Mars Lozano MD, MD Physician Vice President Research [employer] [facility] Indications Atrial fibrillation. Clinical History Atrial Fibrillation. Study Data Type of Study TTE procedure:Echo Complete-Doppler, Colorflow, M-Mode. Study Date07/15/2023 Start Time: 07:47 AM Study Location: [facility] Adult Echo Study Status: Echo lab Patient Status: Pending Surgery Technical Quality: Good due to restricted mobility. Blood Pressure:94/60 mmHg EKG: Atrial fibrillation HR: 100 bpm 2D Measurements LV Diastolic Dimension: 4.3 cm LV Systolic Dimension: 3.2 cm LV Septum Diastolic: 0.8 cm LV PW Diastolic: 1 cm AO Root Dimension: 3.2 cm LA Dimension: 2.6 cm LA ESV (BP):54.2 ml LVOT Stroke Volume: 54.35 ml LA ESV Index: 32 ml/m2 Stroke Volume Index32.16 ml/m2 LVOT: 2.1 cm Cardiac Index:3.22 l/min/m2 Ascending Aorta:4.02 cm Doppler Measurements AV Peak Velocity: 128 cm/s MV Peak E-Wave: 58.1 cm/s AV Peak Gradient: 6.55 mmHg MV Peak A-Wave: 79.9 cm/s MV E/A Ratio: 0.73 LVOT Peak Velocity: 86.4 cm/s MV P1/2t: 67 msec LVOT VTI15.7 cm MV Deceleration Time: 230 msec TR Velocity:225 cm/s MV Area (PHT): 3.28 cm2 TR Gradient:20.25 mmHg PV Peak Velocity: 71.3 cm/s E' Septal Velocity: 5.87 cm/s PV Peak Gradient: 2.03 mmHg E' Lateral Velocity: 9.25 cm/s E/Med E':[id number] E/Lat E':[id number] Cardiac Anatomy Left Ventricle/Interventricular Septum Left ventricular wall thickness and size are normal. Mildly reduced left ventricular systolic function. Left ventricular ejection fraction is 46 % by biplane Garvey's estimation. There are regional wall motion abnormalities. The mid to apical anterior, anterolateral, and inferolateral segments are hypokinetic. The apical inferior and apical septal segments are dyskinetic. Wall motion is preserved in the remaining segments. Abnormal mitral annular TDI velocities suggest impaired LV relaxation. Echo enhancement agent could not be administered to assess for LV thrombus, however no obvious thrombus is seen on non-enhanced images. Left Atrium/Interatrial Septum The left atrium is normal in size. The interatrial septum appears intact. Aortic Valve The aortic valve is is poorly visualized. There is an unidentifiable number of aortic valve leaflets. No aortic stenosis or regurgitation. Mitral Valve The mitral valve is normal in structure and function. There is trace mitral regurgitation. Aorta The ascending aorta is incompletely visualized but appears dilated, measuring 4.0 cm in diameter with effacement of the sinotubular junction. The aortic root is normal in size. Right Ventricle The right ventricle is normal in size and function. Right Atrium The right atrium is normal in size. Pulmonic Valve The pulmonic valve is poorly visualized. No pulmonic regurgitation or stenosis. Tricuspid Valve The tricuspid valve is normal in structure and function. There is mild tricuspid regurgitation. Pumonary Artery The pulmonary artery systolic pressure estimation is 20 mmHg plus the CVP or right atrial pressure. The pulmonary artery is not well visualized. Venous Structures The inferior vena cava size is normal (<= 2.1 cm) with normal inspiratory collapse (>50%), consistent with a right atrial pressure of approximately 3 mmHg. Pericardium/Extracardiac Prominent epicardial adipose tissue. There is no significant pericardial effusion. Summary 1. Left ventricular wall thickness and size are normal. Mildly reduced left ventricular systolic function. Left ventricular ejection fraction is 46 % by biplane Garvey's estimation. There are regional wall motion abnormalities. The mid to apical anterior, anterolateral, and inferolateral segments are hypokinetic. The apical inferior and apical septal segments are dyskinetic. Wall motion is preserved in the remaining segments. Abnormal mitral annular TDI velocities suggest impaired LV relaxation. Echo enhancement agent could not be administered to assess for LV thrombus, however no obvious thrombus is seen on non-enhanced images. 2. The right ventricle is normal in size and function. 3. The atria are normal in size. 4. Mild tricuspid regurgitation. 5. The pulmonary artery systolic pressure estimation is 20 mmHg plus the CVP or right atrial pressure. 6. The inferior vena cava size is normal (<= 2.1 cm) with normal inspiratory collapse (>50%), consistent with a right atrial pressure of approximately 3 mmHg. 7. Prominent epicardial adipose tissue. There is no significant pericardial effusion. 8. The ascending aorta is incompletely visualized but appears dilated, measuring 4.0 cm in diameter with effacement of the sinotubular junction. The aortic root is normal in size. Comparison No prior study available for comparison. Signature * Event Display: Echocardiogram - Complete Authored Date: [id number] EKG study * Event Display: EKG Authored Date: Cardiology * Event Display: Cardiac Rhythm Strips Authored Date: Hospital Progress note * Elba Alston: PERFORM, MODIFY Event Display: Progress Note Hospital Authored Date: [id number] Patient: ??JEWELL GUERRIER ? Age:??78 Years?Sex:??Female?:??1945?? Provider Clinical Summary POD#2 Subjective Patient seen and examined.?? Notes reviewed.?? She stated the leg was a little sore.?? She was surprised since she had no pain yesterday.?? She was wondering if maybe she had a nerve block but she did not think so.?? Explained it may have been painful once she got up for the first time.?? She is hoping to go to rehab today, stating a bed is being held at [facility] for her.?? No other complaints.?? Tolerating a small diet, does not really like the food.?? Denied N/V.?? Voiding without difficulty.?? Has not had a bowel movement but is passing gas.?? No other questions/concerns. Objective Vitals & Measurements T:??98.1?F?? TMIN:??98.0?F?? TMAX:??99.8?F?? HR:??91??(Peripheral)?? RR:??18?? BP:??117/54?? SpO2:??97%?? Physical Exam Gen: ?Sitting in recliner, awake and alert, NAD ?? LLE: ?Splint in place to lower leg; bandages in place from toes to thigh - clean and dry ?Aquacel??noted at proximal end of dressing ?KI in place ?Thigh with moderate soft edema, mildly tender to palpation ?No sharp/rough edges noted at distal end of splint ?Able to actively??flex/extend toes; toes warm ?Sensation/motor function??appear grossly??intact distally ?? Lab Results Test Name Test Result Date/Time WBC 9.9 k/mm3 07/17/2023 01:09 EST Hgb 9.2 Gm/dL 07/17/2023 01:09 EST Hct 27.6 % 07/17/2023 01:09 EST Platelet Count 182 k/mm3 07/17/2023 01:09 EST Assessment/Plan ?? 78 year old??female POD#2 s/p ORIF left distal femur supracondylar fracture and ORIF left bimalleolar fracture - Overall care per primary team - Pain control per primary team - OOB with PT, NWB LLE in splint and KI ?- KI may be opened when in bed/chair/not participating with PT to prevent pressured skin areas - Maintain splint and dressing, keep clean and dry - Encourage IS/deep breathing - Bowel meds prn constipation - DVT prophylaxis: Patient now on Xarelto - D/C planning: per primary team; ok to be d/c from Ortho perspective? - Upon d/c, F/U Dr. Rojas in 1-2 weeks, [facility] [address], [place], [place] - Please page [phone] with any further Ortho questions/concerns * Sienna Sherman RN: MODIFY, SIGN, VERIFY, PERFORM, SIGN Event Display: Progress Note Hospital Authored Date: Patient: JEWELL GUERRIER Age: 78 years Sex: Female : 1945 Associated Diagnoses: None Author: Sienna Sherman RN Findings Problem Related to Alteration in Musculoskeletal : Alteration in Musculoskeletal Func/new 07/17/2023 7:00 EST Alteration in Musculoskeletal Related to Fracture, Mobility, Orthopedic Procedure, Other: L hip and ankle fx's, ORIF L hip/L ankle 07/15 Goals & Outcomes, Musculoskeletal Affected extremity will maintain color/motion/sensation, Pt able to perform ADL's to best of ability, Pt demonstrates precautions/exercise/ transfers per protocol, Pt will ambulate safely with assistive device, Pt will be free from complications of immobility, Pt will demonstrate ability to participate in ADL's Interventions, Musculoskeletal Monitor patients ambulation status, monitor Color/Motion/Sensation, Assist with repositioning, Encourage deep breathing & coughing exercises, Notify MD immediately if tissue perfusion deteriorates, Obtain assistive devices as needed, Teach & Encourage use of Incentive spirometer, Teach Pt/caregiver on ADL's & adaptive equipment, Teach Pt/caregiver on exercises, Teach pt/caregiver on use of pain scale, Teach Pt/caregiver complications of immobility, Teach Pt/caregiver techniques to increase mobility, Teach Pt/caregiver on safety precautions BH Goals/Interventions, Musculoskeletal Yes Musculoskeletal, Problem Start 07/16/2023 1:49 Reviewed Plan with, Musculoskeletal Patient Patient Progression, Musculoskeletal Pt progressing according to plan . Nursing Data Musculoskeletal Data. : Musculoskeletal Data. 07/17/2023 7:31 EST Musculoskeletal Symptoms Other: L ankle, L femur ORIF 07/15 by [employer] Splint(s) Musculoskeletal WNL except . Evaluation P: Alteration in Musculoskeletal I: Per plan of care E: Pt s/p fall, L hip&L ankle ORIF on 07/15 by , +CMS, good cap refill, +wiggle toes, denies numbness, tingling, or calf pain. Turned and repositioned q 2 hours, bedrest mostly, max 2 assist from recliner to bed, unsteady gait noted. Splint with KELTON wrap on LLE(from toe to thigh) with immobilizer in place, CDI, no s/sx of bleeding or infection noted. NWB on LLE maintained. Ok to loose KELTON wrap on L ankle when pt c/o discomfort, ok to open KI when pt in bed/chair/not participating with PT per orthotrauma team. Small skin tear site on R FA, scabbed, band aid applied. Pt A+Ox4, speechis clear, follows simple and complex commands. Visual field intact. Pt takes pills whole with water, tolerating well. Denies PATTON, dizziness, N/V. NSR on telemetry, HR 70-90's. LS CTA, denies CP, SOB, no s/sx of respiratory distress noted. Continent for bowel and bladder, last BM 07/14/2023, +BSx4, soft and nontender abdomen noted, PRN MIralax, Senna, Colace administered, pending result. Pt endorsesmild indigestion and heartburn, scheduled TUMS administered as ordered, +effect. Primafit in place d/t mobility level, concentrated/tea colored urine draining. C/O 5/10 LLE pain, spasm, PRN Oxycodoneadministered as ordered, ice pack applied, +effect. IV access on R FA, patent. Cboots in RLE. Xarelto for DVT prophylaxis. PT recommends rehab. Bed in lowest position, bed alarm on functioning, call malik in reach, hourly rounding maintained, will continue to monitor and document changes in C[facility]. * Kristofer MONTIEL, Clarita: PERFORM, SIGN, VERIFY Event Display: Progress Note Hospital Authored Date: Patient: JEWELL GUERRIER Age: 78 years Sex: Female : 1945 Associated Diagnoses: None Author: Clarita Miner RN Findings Problem Related to Alteration in Musculoskeletal : Alteration in Musculoskeletal Func/new 07/16/2023 20:00 EST Alteration in Musculoskeletal Related to Fracture, Mobility, Orthopedic Procedure, Other: L hip and ankle fx's, ORIF L hip/L ankle 07/15 Goals & Outcomes, Musculoskeletal Affected extremity will maintain color/motion/sensation, Pt able to perform ADL's to best of ability, Pt demonstrates precautions/exercise/ transfers per protocol, Pt will ambulate safely with assistive device, Pt will be free from complications of immobility, Pt will demonstrate ability to participate in ADL's Interventions, Musculoskeletal Monitor patients ambulation status, monitor Color/Motion/Sensation, Assist with repositioning, Encourage deep breathing & coughing exercises, Teach pt/caregiver on use of pain scale, Teach Pt/caregiver complications of immobility, Teach Pt/caregiver techniques to increase mobility, Teach Pt/caregiver on safety precautions BH Goals/Interventions, Musculoskeletal Yes Musculoskeletal, Problem Start 07/16/2023 1:49 Reviewed Plan with, Musculoskeletal Patient Patient Progression, Musculoskeletal Pt progressing according to plan . Evaluation Pt alert and oriented X4. Lungs CTA, diminished to LLL. Encouraged incentive spirometer. Pt LLE splint and kelton clean, dry, intact. Knee immobilizer on. CMS WNL. Compression boot to LLE. Pt c/o 6/10 pain. Medicated with oxycodone. Pt c/o unable to have bowel movement. Stool softeners given. Pt on continuous telemetry monitoring. NRS. VSS. Pt resting comfortably at this time.. Consult note * Aravind FLYNN, [facility]: PERFORM, MODIFY, MODIFY Event Display: Consultation Note Authored Date: Patient: ??JEWELL GUERRIER ? Age:??78 Years?Sex:??Female?:??1945?? Indication for Consult Pt. coming from home. Walking down steps, fell down two stairs. Pt. has swelling to L knee and endorses L knee pain. CMS intact in L foot. Pt. denies LOC or headstrike. Pt. not on thinners. ?? Requesting physician: Jero Jung DO. Consulting physician: Dr. Oscar Hinson Reason for consult: New onset A-fib RVR History of Present Illness/Interval History 78-year-old female patient without significant cardiac past medical history presenting after a fall.?Cardiology consulted for new onset A-fib ?? This fairly healthy old female presented after falling down a few stairs at home and complaining ofleft leg pain.?? Patient denies any dizziness, lightheadedness or loss of consciousness or head trauma.?? Patient remembers it being a mechanical fall after she missed a step.?? Patient was brought by EMS to the ED.? In the ED, patient was found to be tachycardic to the 150s with irregularly irregular rhythm.?? EKGshows new onset A-fib with RVR, left axis deviation and no ischemic changes.?? On further workup, patient was found to have unremarkable lab work (including TSH) and imaging showed left femur and fibular fractures.?? Bedside ultrasound in the ED showed a normal EF and patient was given IV fluids aswell as 2.5 mg IV metoprolol with some improvement of her heart rate to the 110s???120s.?? Patient was admitted to the hospitalist service and orthopedics saw the patient and plan for??possible operative repair in the morning. ?? On my encounter, patient reports has very clearly recollection??of what happened, over missing a step and falling down without any preceding??symptoms. ??Patient again adamantly denies any??chest pain, shortness of breath, palpitations,??dizziness, lightheadedness or loss of consciousness. ??Patient is in A-fib with RVR during my encounter and is relatively asymptomatic??except for some nausea which she attributes to the dilaudid given. ?? No previous cardiology work-up Review of Systems Constitutional, Eye, Skin, Head/Neck, ENMT, Respiratory, Cardiovascular, Gastrointestinal, Endocrine, Musculoskeletal, Neurologic, Psych reviewed and negative except as noted in HPI Physical Exam Vitals & Measurements T:??97.6?F?? HR:??112??(Peripheral)?? RR:??20?? BP:??116/82?? SpO2:??95%?? General:??No apparent distress, appears stated age. HEENT:??NCAT, EOMI, Sclera are anicteric. Moist oral mucosa. Neck:??Supple, No lymphadenopathy. No JVD noted. Cardiovascular:??Tachycardia, irregularly irregular rhythm, normal S1, S2. No S3 or S4 heard. No appreciable murmurs/gallops or rubs. No carotid bruits noted. Palpable peripheral upper and lower extremity pulses noted. Respiratory:??Clear to auscultation bilaterally without wheezes, rales or rhonchi. Abdomen:??Soft, nontender, non-distended, no abnormal BS, no HSM.?? Extremities:??No lower extremity edema noted.?Bilateral varicose vein Neurology:??No focal neurological deficits.?? Assessment/Plan 78-year-old female patient without significant cardiac past medical history presenting after a fall.?Cardiology consulted for new onset A-fib ?? Assessment and plan: 78-year-old female without significant cardiac past medical history presents??after a fall and found to have incidentally diagnosed new onset atrial fibrillation with rapid ventricular response??there is relatively asymptomatic. ??Patient is currently in A-fib with RVR??with stable blood pressure. ??Patient has no signs or symptoms of heart failure??and is laying comfortably in bed??without respiratory distress. ?? Since this is a relatively new diagnosis (patient regularly follows with physicians and has never??been diagnosed with A-fib)??that is likely paroxysmal in nature, patient would benefit from??rhythm control strategy??and anticoagulation.?? Rhythm control strategy will depend??upon??assessment of her ??cardiac function??(patient should??get a transthoracic echo??tomorrow)??however this can be deferred??until after her??orthopedic procedure given??high chance of recurrence??under that stress. ??Cardiology will continue to follow the patient??and give??follow-up recommendations for rhythm control(which may include TTE cardioversion)??postoperatively. ??Anticoagulation can also be deferred??until??adequate??hemostasis is??achieved??postoperatively.?? Patient will??eventually need to be started??on Eliquis (appropriate dose for her is 5 mg twice daily). ?? In the meantime,??patient can be rate controlled with beta-blockers.?? Recommend starting Toprol tartrate 25 q6h and uptitrating as tolerated??with??5 mg IV Lopressor every 6 hours??as needed.?? Given the patient has no signs or symptoms of heart failure,??a diltiazem drip??is also an option if needed perioperatively. ?? In terms of her operative risk, patient has an RCRI??score of 0??(class I risk reflecting a 3.9% 30-day risk of , VT or cardiac arrest).?? According to the ACS NSQIP surgical risk calculator, patient has??below average??surgical risk??(8.3%??risk of any??complication,??7.5% risk of serious complication and 0.4% risk of ). ??Patient is??undergoing an emergent lower risk??surgery,??does not have an active cardiac condition (no hemodynamically unstable arrhythmia, acute heart failure, acute valvular??heart disease or??acute coronary syndrome)??is able to perform >??4 METS.?? Patientshould??be okay to??proceed with surgery??after discussing risks and benefits, but would get the TTE first to rule out tachycardia induced cardiomyopathy. ?? Recommendations: -Transthoracic echo prior to going to the OR??to make sure she has no tachycardia induced cardiomyopathy -If has relatively normal TTE, patient can??proceed to??orthopedic surgery. -Perioperative rate control with??metoprolol tartrate??25 q6h (uptitrate??every 6 hours as tolerated)??with??5 mg IV Lopressor every 6 hours as needed. -If additional rate control is needed perioperatively,??patient can be started on a diltiazem drip. -Will provide??further recommendations regarding long-term rhythm control strategy postoperatively??which may include ZAHIDA cardioversion if patient is still in atrial fibrillation. -Patient should be started on anticoagulation once deemed??safe from a surgical point of view.?? Appropriate option??includes Eliquis 5 mg twice daily. ?? Case discussed with attending, Dr. Hinson ?? Mars Nazario MD, PGY-4 Cardiovascular disease fellow Pager [phone], available on [facility] Allergies [facility] Home Medications Acetaminophen: 650 mg = 2 tablet, By Mouth, Every 6 hours Ascorbic Acid: 1 tablet, By Mouth, Daily Bisacodyl: 10 mg = 1 supp, Rectally, Daily, PRN (Constipation) Cholecalciferol: 1 capsule, By Mouth, Daily Enoxaparin: 40 mg = 0.4 mL, Subcutaneous Injection, Daily Glucosamine: 1 capsule, By Mouth, 2 times a day Hydrocortisone Topical: USE 1 APPLICATION RECTALLY 2 TO 4 TIMES A DAY NEEDED FOR HEMORRHOIDS Milk of Magnesia: 30 mL, By Mouth, 2 times a day, PRN (Constipation) Miscellaneous Rx (Allergy Med): 1 tablet, By Mouth, Daily Multivitamin: 1 tablet, By Mouth, Daily Oxybutynin: 10 mg = 1 tablet, By Mouth, Daily Senna: 8.6 mg = 1 tablet, By Mouth, Daily Hospital Medications Medications (10) Active SCHEDULED: (2) CeFAZolin 2 Gm Inj (ceFAZolin Inj) ??2 Gm, IV Push, Once NaCl 0.9% Flush 3ml (NaCL 0.9% Flush) ??3 mL, IV Push, Every 8 hours CONTINUOUS: (0) PRN: (8) Acetaminophen 325 mg Tablet (Acetaminophen Tablet) ??650 mg, By Mouth, Every 4 hours Dextromethorphan-Guaifenesin 20 mg-200 mg/10 mL Liqu UD (Robitussin DM Liquid) ??10 mL, By Mouth, Every 4 hours Docusate Sodium 100 mg Capsule (Docusate Sodium Capsule) ??100 mg 1 capsule, By Mouth, 2 times a day Melatonin 3 mg Tablet (Melatonin Tablet) ??3 mg, By Mouth, Daily at bedtime NaCl 0.9% Flush 3ml (NaCL 0.9% Flush) ??3 mL, IV Push, Every 8 hours Polyethylene Glycol 17 Gm Powder (MiraLax Powder) ??17 Gm 1 pack/packet, By Mouth, Daily Senna Tablet ??8.6 mg 1 tablet, By Mouth, 2 times a day Simethicone 80 mg Chewable Tablet (Simethicone Tablet) ??80 mg, Chew, 3 times a day Lab Results Cardiology Labs WBC:??13.7 k/mm3??High (07/14/23) RBC: 4.52 m/mm3 (07/14/23) Hgb: 14.3 Gm/dL (07/14/23) Hct: 43.5 % (07/14/23) MCV: 96.2 femtoliters (07/14/23) MCH: 31.6 pg (07/14/23) MCHC:??32.9 g/dL??Low (07/14/23) Platelet Count: 262 k/mm3 (07/14/23) RDW-SD:??49.6 femtoliters??High (07/14/23) Nucleated RBC (Automated): 0 #/100 WBC'S (07/14/23) Abs. Neut:??10.2 k/mm3??High (07/14/23) Abs. Lymph: 2.7 k/mm3 (07/14/23) Abs. Gilmer: 0.6 k/mm3 (07/14/23) Abs. Eo: 0.1 k/mm3 (07/14/23) Abs. Baso: 0.1 k/mm3 (07/14/23) Neut %: 74.6 % (07/14/23) Gilmer %:??4.1 %??Low (07/14/23) Eos %: 0.4 % (07/14/23) Baso %: 0.5 % (07/14/23) Imm Gran: 0.5 % (07/14/23) Abs. Imm Gran: 0.1 k/mm3 (07/14/23) Sodium: 140 mmol/L (07/14/23) Potassium: 3.9 mmol/L (07/14/23) Chloride: 101 mmol/L (07/14/23) Bicarbonate Level: 24 mmol/L (07/14/23) Glucose Level:??152 mg/dL??High (07/14/23) BUN:??26 mg/dL??High (07/14/23) Creatinine-Blood:??0.4 mg/dL??Low (07/14/23) Calcium: 10.4 mg/dL (07/14/23) Protein, Total:??6.1 Gm/dL??Low (07/14/23) Albumin: 4.2 Gm/dL (07/14/23) Alkaline Phosphatase: 93 units/L (07/14/23) AST (SGOT): 22 units/L (07/14/23) ALT (SGPT): 15 units/L (07/14/23) Bilirubin, Total: 0.6 mg/dL (07/14/23) TSH: 1.52 uIU/mL (07/14/23) Diagnostic Impression CT CT Heart/Coronary/3D/Morph ?? 13:18:28 IMPRESSION: ?? No evidence of hemodynamically significant coronary artery disease. ? WSN: [id number] ? Ordering Physician: Ruddy Trammell ?? Signed By: Nakita Martinez MD, V ECG ECG 12-Lead * Preliminary * ?? 12:38:20 Ventricular Rate: 155 BPM QRS Duration: 116 ms Q-T Interval: 314 ms QTC Calculation(Bazett): 504 ms R Republic: -51 degrees T Republic: 97 degrees Atrial fibrillation with rapid ventricular response with premature ventricular or aberrantly conducted complexes Left axis deviation Minimal voltage criteria for LVH, may be normal variant ( Gilbert product ) Septal infarct , age undetermined ST and T wave abnormality, consider lateral ischemia Abnormal ECG When compared with ECG of 25-MAY-2022 18:34, Atrial fibrillation has replaced Sinus rhythm Vent. rate has increased BY 72 BPM ?? [place]: , ?? ECG 12-Lead * Preliminary * ?? 12:38:20 Please click on pdf link to open report Problem List/Past Medical History Ongoing No qualifying data Procedure/Surgical History No qualifying data available. Social History Tobacco Former smoker, Other: quit smoking 40 years ago. Family History No family history recorded. * Sravan FLYNN, Oscar Meng: PERFORM Event Display: Consultation Note Authored Date: [id number] I have seen and examined??JEWELL GUERRIER??today with the house staff.?? I agree with the diagnosis, assessment, and treatment plan outlined with any additions and modifications below. ?? 78F a/w fall c/b LLE Fx, pending ORIF, found to be in new AF/RVR.?? TTE 07/15/22 w/ LVEF 45% global. ?? - metoprolol tartrate 25q6 for rate control, goal sustained <100 bpm - proceed w/ ORIF w/ rate control; only RCRI risk factor is the active cardiac conditions are new AF and new asymptomatic LVEf 45%, and as long as AF is rate controlled, pt is at low risk for cardiacissues shaun-operatively - prior to discharge, convert to metoprolol succinate 50 BID (titrated for target HR <100 bpm; yes, succinate BID for smooth HR at dosing intervals) - [id number] = 3 (age 1, female):?? when safe from orthopedic standpoint, recommend anticoagulation with rivaroxaban 20 daily (if falls are expected to be a recurrent??issue, will be happy to discuss left atrial appendage occlusion to avoid anticoagulation) ?? Oscar Hinson MD, MS, FACC, FSCAI, FSVM, RPVI Director, Cardiac Catheterization Airplane Mechanic Apprentice, Cardiovascular Clinical Research [facility] Cell:?? [email or web address] Clinic:?? Fax:?? [address] [place] [address] * Rafal Houston: PERFORM, MODIFY Event Display: Consultation Note Authored Date: Patient: ??JEWELL GUERRIER ? Age:??78 Years?Sex:??Female?:??1945?? Chief Complaint/Reason for Consult Left leg pain History of Present Illness Orthopedic consultation was requested by Dr. Valle??in the [facility] emergency department under supervision of Dr. Jhaveri ?? Jewell is a 78 year old female with??OA,??carpal tunnel,??overactive bladder,??new onset A-fib with RVR which was found in the ED today??who presented after a mechanical fall??earlier today.?Patient stated that she was walking down the steps??when she accidently??slipped on the last??few and la nded??onto her left leg. ??She immediately began to have pain to that extremity.?Patient stated that??after the injury she was unable to ambulate secondary to leg pain??and called for help.?Patient denies any head strike or LOC. ??Patient denies any??prodromal symptoms. ??Patient was subsequently transferred to [facility] emergency department for further evaluation.?? Imaging in the ED showeda comminuted left??distal femur fracture as well as a left ankle fracture.?? Orthopedics was consulted for further evaluation. Review of Systems Denies fevers, chills or sweats. ??Denies shortness of breath and chest pain. ??Denies other injuries or painful joints. Physical Exam Vitals & Measurements T:??97.9?F?? HR:??124??(Peripheral)?? RR:??20?? BP:??100/71?? SpO2:??94%?? Patient is well-developed and in no acute distress. ??Alert and cooperative with examination. ??Mood and affect appropriate. ??Examined on a stretcher in the emergency department.? HEENT: Atraumatic and normocephalic cardiac: Per ED provider Pulmonary: Per ED provider Abdomen: Soft, nontender, nondistended. ?? Right upper extremity: Full, supple, nonpainful range of motion of shoulder, elbow, wrist and digits. ??No tenderness to palpation. ??Grossly neurovascularly intact radial, median, ulnar nerve distributions. ?? Left upper extremity: Full, supple, nonpainful range of motion of shoulder, elbow, wrist and digits. ??No tenderness to palpation. Grossly neurovascularly intact radial, median, ulnar nerve distributions. ?? Right lower extremity: Full, supple, non-painful range of motion of the hip, knee, foot and ankle. ??No tenderness to palpation. Calf supple and nontender. ??Active dorsiflexion and plantar flexion strength. ??Grossly neurovascularly intact. ?? Left lower extremity:??Limited active range of motion of the??hip, knee,??ankle and foot.?Patient had??obvious deformity to the distal femur??with??large hematoma??noted??just??proximal to the knee as well as just distal??to the knee.?? This area was tender to palpation as well as had moderate amount of ecchymosis noted.?? No obvious signs of any open injury can be seen to this area.?? Patient's kneecap could be palpated without any pain.?? The patient's??left ankle was tender to palpation about the??lateral malleolus, however patient was able to actively flex and extend the ankle??but waslimited secondary to pain pain the??knee.?? No open injuries to the ankle??or foot could be noted.?? Calf supple and nontender. ??PT pulse 2+.?? DP pulse??1+??and weak, cap refill??1+.?Grossly neurovascular intact. ?? Procedure:After the patient was given adequate pain control by the emergency department staff, the patient's??left ankle was placed in a??well-padded sugar- tong and posterior splint.?? Patient tolerated the procedure well.?? After the splint was applied the patient's left lower extremity was??brought out to length??and straightened to a neutral position??when a knee immobilizer was then applied. ??Patient tolerated this procedure well. Assessment/Plan Left??bimalleolar ankle fracture Left comminuted distal??femoral fracture ?? Plan: Patient is admitted to the medical service. ??Orthopedics will follow. ??Preoperative medical??optimization is requested. ??Patient will be made n.p.o. after midnight tonight for possible surgery tomorrow. ??Recommend strict nonweightbearing status LLE, elevation, pain control and DVT prophylaxis. Patient is added to the orthopedic trauma surgery OR add on list with plan for surgical fixation once medically??optimized and when OR schedule allows. ??This was discussed with the patient who voiced understanding. ??Questions are asked and answered.? Case discussed with Dr. Rojas Problem List/Past Medical History OA Carpal tunnel Overactive bladder Right femur fracture Procedure/Surgical History No qualifying data available. Cholecystectomy Bilateral carpal tunnel releases ORIF of the right femur x 2 Appendectomy Right TKA Home Medications Acetaminophen: 650 mg = 2 tablet, By Mouth, Every 6 hours Ascorbic Acid: 1 tablet, By Mouth, Daily Bisacodyl: 10 mg = 1 supp, Rectally, Daily, PRN (Constipation) Cholecalciferol: 1 capsule, By Mouth, Daily Enoxaparin: 40 mg = 0.4 mL, Subcutaneous Injection, Daily Glucosamine: 1 capsule, By Mouth, 2 times a day Hydrocortisone Topical: USE 1 APPLICATION RECTALLY 2 TO 4 TIMES A DAY NEEDED FOR HEMORRHOIDS Milk of Magnesia: 30 mL, By Mouth, 2 times a day, PRN (Constipation) Miscellaneous Rx (Allergy Med): 1 tablet, By Mouth, Daily Multivitamin: 1 tablet, By Mouth, Daily Oxybutynin: 10 mg = 1 tablet, By Mouth, Daily Senna: 8.6 mg = 1 tablet, By Mouth, Daily Allergies NKDA Social History Currently lives at home??alone Retired Denies any alcohol use Denies any tobacco use Denies any illicit drug use Family History Family history: Denies history of adverse reaction to anesthesia, bleeding dyscrasias, DVT. Radiology Three-view x-ray of the left ankle was reviewed by myself which shows a minimally displaced obliquedistal fibular fracture medical billing representative of a Ybarra B.?? The also appears to be a lucency to the medial malleolus that is essentially nondisplaced.?? This is likely medical billing representative of a medial malleolus fracture.?? There is approximately 4 mm of medial clear space widening however the mortise view is not great for measurement.?? No other acute fractures or dislocations can be seen at this time. ?? 2 view x-ray of the left femur was reviewed by myself which shows a comminuted distal femur fracture of the left side.?? On the lateral view it can be noted to be apex dorsal angulation of approximately 148 degrees.?? There is some lucency on the AP view which may represent an intra-articular extension of the fracture line.?? However hard to patrol judge at this time.?? No other acute fractures or disloc ations can be seen at this time. ?? 1 view x-ray of the AP pelvis was reviewed by myself which shows an intact right.?? No other acute fractures or dislocations can be seen at this time. Lab Results Labs Last 24 Hours BLOOD COUNT & DIFF ? Event Name?? Event Result?? Date/Time?? WBC 13.7 k/mm3??High 07/14/23 13:20:00 RBC 4.52 m/mm3 07/14/23 13:20:00 Hgb 14.3 Gm/dL 07/14/23 13:20:00 Hct 43.5 % 07/14/23 13:20:00 MCV 96.2 femtoliters 07/14/23 13:20:00 MCH 31.6 pg 07/14/23 13:20:00 MCHC 32.9 g/dL??Low 07/14/23 13:20:00 Platelet Count 262 k/mm3 07/14/23 13:20:00 MPV 11 femtoliters 07/14/23 13:20:00 Nucleated RBC (Automated) 0 #/100 WBC'S 07/14/23 13:20:00 ? CHEM GENERAL ? Event Name?? Event Result?? Date/Time?? Sodium 140 mmol/L 07/14/23 13:20:00 Chloride 101 mmol/L 07/14/23 13:20:00 Bicarbonate Level 24 mmol/L 07/14/23 13:20:00 Anion Gap 15 07/14/23 13:20:00 Glucose Level 152 mg/dL??High 07/14/23 13:20:00 BUN 26 mg/dL??High 07/14/23 13:20:00 Creatinine-Blood 0.4 mg/dL??Low 07/14/23 13:20:00 Calcium, Ionized pH Corrected 1.32 mmol/L 07/14/23 13:20:00 Magnesium 2.2 mg/dL 07/14/23 13:20:00 Alkaline Phosphatase 93 units/L 07/14/23 13:20:00 AST (SGOT) 22 units/L 07/14/23 13:20:00 ALT (SGPT) 15 units/L 07/14/23 13:20:00 Bilirubin, Total 0.6 mg/dL 07/14/23 13:20:00 ? Note * Alphonse oRsmery MONTIEL: PERFORM Event Display: Discharge/Transfer Note Hospital Authored Date: [id number] Nursing Discharge Note Entered On: 07/17/2023 15:03 EST Performed On: 07/17/2023 17:00 EST by Rosmery Cunha RN Nursing Discharge Note 2 Discharge Time : 07/17/2023 17:00 EST Amanda Rae RN - 07/17/2023 16:56 EST Discharge Level of Care at Discharge : long-term facility Discharge Nursing Homes/Rehab Facilities : [facility] Patient Left Unit Via : Ambulance Patient Accompanied Off Unit with : Ambulance/Chair Van Personnel Handover Given to Transport Personnel : Yes DC Instructions Provided & Signed by Pt : Yes Patient Understands D/C Instructions : Yes Patient Instructions Discharge Signed : Yes Did Pt have Specialty Bed or Wound Vac : No Rosmery Cunha RN - 07/17/2023 15:03 EST * Sherley Meza MD: PERFORM Event Display: Discharge/Transfer Note Hospital Authored Date: [id number] Patient: ??JEWELL GUERRIER ? Age:??78 Years?Sex:??Female?:??1945?? Patient Information Discharge Location: Primary Care Physician: Ari FLYNN , Luann Mace Admit Date/Time: 07/14/23 18:21 Discharge Disposition Discharge Disposition: Retirement Facility/Rehab Discharge Diagnosis Atrial fibrillation with RVR (I48.91) Atrial fibrillation, new onset (I48.91) Fall (W19.XXXA) Femur fracture, left (S72.92XA) Closed displaced supracondylar fracture of distal end of left femur with intracondylar extension (S72.462A) Osteoarthritis (M19.90) Overactive bladder (N32.81) Fibula fracture (S82.409A) Nondisplaced bimalleolar fracture of left lower leg, initial encounter for closed fracture (S82.985A) ?? _ Discharge Medications Ammonium Lactate 12% (ammonium lactate 12% topical cream)?1?morris?Topically?Daily in AM?as needed?Dry Skin Ascorbic Acid (Vitamin C 500 mg oral tablet)?1?tab(s)?500?Milligram?By Mouth?Daily Diclofenac Topical (diclofenac 1% topical gel)?1-4 gm?Topically?4 times a day Ergocalciferol (Vitamin D2 50,000 intl units (1.25 mg) oral capsule)?1?capsule?50,000?International Unit?By Mouth?Every Thursday Gabapentin (Neurontin 100 mg oral capsule)?200?Milligram?2?capsule?By Mouth?Dailyat bedtime Glucosamine (glucosamine 500 mg oral tablet)?1?tab(s)?500?Milligram?By Mouth?Daily Loratadine (Claritin 10 mg oral tablet)?10?Milligram?1?tablet?By Mouth?Daily Meloxicam (Mobic 15 mg oral tablet)?1?tab(s)?15?Milligram?By Mouth?Daily Metoprolol (metoprolol succinate 50 mg oral capsule, extended release)?1?capsule?50?Milligram?By Mouth?2 times a day?for 30?Days Multivitamin?1?tab(s)?By Mouth?Daily Oxybutynin (oxybutynin 10 mg/24 hr oral tablet, extended release)?1?tab(s)?10?Milligram?By Mouth?Daily Oxycodone (oxyCODONE 5 mg oral tablet)?5?Milligram?1?tablet?By Mouth?Every 6 hours?as needed?for 5?Days?as needed for pain rivaroxaban (rivaroxaban 20 mg oral tablet)?20?Milligram?By Mouth?Daily at supper?for 30?Days Tetrahydrozoline Ophthalmic (Visine 0.05% ophthalmic solution)?1?Drops?Eyes, Both?4 times a day?as needed?as needed for dry eyes ? Medications Started Metoprolol Xarelto Oxycodone Medications Discontinued none Doses Changed none Allergies Allergies ?(Active and Proposed Allergies Only) NKA? (Severity: Unknown severity, Onset: Unknown) ? PCP Follow-Up/He[facility]-Up Hospital follow-up Future Appointments Thursday 9:45 AM EDT ?? With: Collette So NP Where: [facility] Cardiology [address] [place] [id number] Status: Pending Hospital Course 78-year-old female with a history of osteoarthritis, overactive bladder, carpal tunnel syndrome, right femoral periprosthetic fracture, presented to the ED with complaints of left leg pain after she fell down some stairs at home. Found to have atrial fibrillation. ?? Atrial fibrillation with RVR (I48.91):??. Atrial fibrillation, new onset (I48.91):?? Patient found to have new onset atrial fibrillation. [id number] of 3 Seen by cardiology team Currently rate controlled Echocardiogram noted and discussed with cardiology???recommended to repeat in 3 months Plan Metoprolol??was started for rate control???continue Started Xarelto per cardiology recs???okay per Ortho Will need repeat echocardiogram in 3 months ?? Fall (W19.XXXA):??. Femur fracture, left (S72.92XA):??. Closed displaced supracondylar fracture of distal end of left femur with intracondylar extension (D94.732R):?? Patient's fall most likely mechanical in nature, she denies any syncope or syncopal episode or dizziness prior to fall. s/p ORIF 07/15 Pain control with Tylenol and as needed oxycodone Per Ortho???NWB LLE in splint and KI - KI may be opened when in bed/chair/not participating with PT to prevent pressured skin areas - Maintain splint and dressing, keep clean and dry -??F/U Dr. Rojas in 1-2 weeks, [facility] [address], [place], [place] ?? Osteoarthritis (M19.90):??Topical diclofenac Gabapentin ?? Overactive bladder (N32.81):??Continue home oxybutynin ?? Patient was discharged to rehab Objective Assessment and Plan As??above Vital Signs?? Temperature: 98.8 DegF (07/17/23 12:23:00) Temperature Route: Oral (07/17/23 12:23:00) Pulse Rate:??100 bpm??High (07/17/23 12:23:00) Respiratory Rate:??10 br/min??Low (07/17/23 12:23:00) Systolic Blood Pressure: 113 mm Hg (07/17/23 12:23:00) Diastolic Blood Pressure:??44 mm Hg??Low (07/17/23 12:23:00) Blood pressure sites: Arm, left (07/17/23 12:23:00) Mean Arterial Pressure: 67 mm Hg (07/17/23 12:23:00) Pulse Pressure: 69 mm Hg (07/17/23 12:23:00) Oxygen Saturation: 97 % (07/17/23 12:23:00) Mode of Delivery (Oxygen): Room air (07/17/23 12:23:00) Early Warning Score: 0 (07/17/23 12:29:51) ? . Physical Exam General???pleasant elderly woman, no acute distress at rest Respiratory???no wheezing or crackles Cardiovascular???normal heart sounds GI???abdomen soft, bowel sound present Neuro-??? awake alert oriented x 3 Surgical Procedures Open Reduction Internal Fixation Distal 07/15/2023 15:50 Open Reduction Internal Fixation Ankle 07/15/2023 15:50 Consultants ortho Pending Results Complete Urinalysis/Reflex Culture ordered on 07/14/2023 Type and Screen ordered on 07/15/2023 Follow-Up Appointments Added Follow Up ?Time Frame ?Comments Ari FLYNN , Luann Mace Post Discharge Care Activity: ??OOB as Gerald Start with bed to chair transfers,, advance as safety and tolerance allow With Walker Toe Touch Only Operative may rest foot flat on floor, no more than weight of leg\ r ?? NO HOPPING!!!! Patient has recently recovered from a right femur fracture, and total knee, so may be limited on her right-hand side to some degree as well. ?? Code Status: ??No Resuscitation ?? Discharge ?07/17/23 12:47:00 EST Home Health Face to Face ^HomeHealthFTF Results Discharge Labs BLOOD BANK Blood Type O Positive ()?? 07/15/2023 09:59 Antibody Screen Negative ()?? 07/15/2023 09:59 ?? BLOOD COUNT & DIFF WBC 9.9 k/mm3 ()?? 07/17/2023 01:09 RBC 2.88 m/mm3 (Low)?? 07/17/2023 01:09 Hgb 9.2 Gm/dL (Low)?? 07/17/2023 01:09 Hct 27.6 % (Low)?? 07/17/2023 01:09 MCV 95.8 femtoliters ()?? 07/17/2023 01:09 MCH 31.9 pg ()?? 07/17/2023 01:09 MCHC 33.3 g/dL ()?? 07/17/2023 01:09 Platelet Count 182 k/mm3 ()?? 07/17/2023 01:09 RDW-SD 48.7 femtoliters (High)?? 07/17/2023 01:09 MPV 10.8 femtoliters ()?? 07/17/2023 01:09 Nucleated RBC (Automated) 0.0 #/100 WBC'S ()?? 07/17/2023 01:09 Abs. NRBC 0.0 k/mm3 ()?? 07/17/2023 01:09 Abs. Neut 10.2 k/mm3 (High)?? 07/14/2023 13:20 Abs. Lymph 2.7 k/mm3 ()?? 07/14/2023 13:20 Abs. Gilmer 0.6 k/mm3 ()?? 07/14/2023 13:20 Abs. Eo 0.1 k/mm3 ()?? 07/14/2023 13:20 Abs. Baso 0.1 k/mm3 ()?? 07/14/2023 13:20 Neut % 74.6 % ()?? 07/14/2023 13:20 Lymph % 19.9 % ()?? 07/14/2023 13:20 Gilmer % 4.1 % (Low)?? 07/14/2023 13:20 Eos % 0.4 % ()?? 07/14/2023 13:20 Baso % 0.5 % ()?? 07/14/2023 13:20 Imm Gran 0.5 % ()?? 07/14/2023 13:20 Abs. Imm Gran 0.1 k/mm3 ()?? 07/14/2023 13:20 ?? CARDIAC High Sensitivity Troponin (HSTnT) 90 ng/L (Critical)?? 07/15/2023 01:47 ? CHEM GENERAL Sodium 142 mmol/L ()?? 07/15/2023 07:49 Potassium 3.9 mmol/L ()?? 07/15/2023 07:49 Chloride 108 mmol/L (High)?? 07/15/2023 07:49 Bicarbonate Level 26 mmol/L ()?? 07/15/2023 07:49 Anion Gap 8 ()?? 07/15/2023 07:49 Glucose Level 114 mg/dL (High)?? 07/15/2023 07:49 BUN 19 mg/dL ()?? 07/15/2023 07:49 Creatinine-Blood 0.4 mg/dL (Low)?? 07/15/2023 07:49 Estimated GFR Creatinine 103 ML/MIN/1.73 M2 ()?? 07/15/2023 07:49 Calcium 8.9 mg/dL ()?? 07/15/2023 07:49 Calcium, Ionized pH Corrected 1.32 mmol/L ()?? 07/14/2023 13:20 Magnesium 2.2 mg/dL ()?? 07/14/2023 13:20 Protein, Total 6.1 Gm/dL (Low)?? 07/14/2023 13:20 Albumin 4.2 Gm/dL ()?? 07/14/2023 13:20 AG Ratio 2.2 ()?? 07/14/2023 13:20 Alkaline Phosphatase 93 units/L ()?? 07/14/2023 13:20 AST (SGOT) 22 units/L ()?? 07/14/2023 13:20 ALT (SGPT) 15 units/L ()?? 07/14/2023 13:20 Bilirubin, Total 0.6 mg/dL ()?? 07/14/2023 13:20 ? ENDOCRINE/TUMOR MARKER TSH 1.52 uIU/mL ()?? 07/14/2023 13:20 ? MISC. CHEMISTRY Hold Gel Top SPECIMEN DISCARDED AFTER 1 WEEK ()?? 07/17/2023 01:09 ? URINE OTHER Est Creatinine Clearance 86.15 mL/min ()?? 07/15/2023 10:04 ? 36??minutes spent on discharge * Cecilia Portillo RN: PERFORM, SIGN, VERIFY Event Display: Case Management Discharge Plan Authored Date: Patient: JEWELL GUERRIER Age: 78 years Sex: Female : 1945 Associated Diagnoses: None Author: Cecilia Portillo RN Discharge Plan Case Management Discharge Plan : Case Management Discharge Plan Data 07/17/2023 11:53 EST Discharge Level of Care at Discharge long-term facility Discharge Nursing Homes/Rehab Facilities [facility] Discharge Transportation Arranged [facility] [phone] Name of Agency #1 [facility] Agency E Learning Designer #1 Intake Service Categories #1 Occupational Therapy, Physical Therapy, Retirement Service Comments #1 [facility] will provide your care after discharge, if any questions or concerns please contact the facility directly. 07/15/2023 12:45 EST Discharge Level of Care at Discharge long-term facility Discharge Nursing Homes/Rehab Facilities [facility] * Alphonse RN, Rosmery Connell: PERFORM Event Display: Patient Education/Instruction Authored Date: [id number] Inpatient Adult Discharge Instructions. [address] [address] Name: JEWELL GUERRIER : 1945?? Visit: 07/14/2023 18:21?? Current Date: 07/17/2023 15:03 ?? Account: [id number]?? Inpatient Adult Discharge Instructions We would like to thank you for allowing us to assist you with your healthcare needs. The following includes patient education materials and information regarding your injury/illness. Our entire staffstrives to provide an excellent experience for our patients and their families. PLEASE ENSURE YOU FOLLOW-UP PER THE INSTRUCTIONS BELOW! ?? YOUR OPINION IS IMPORTANT TO US! Please complete the survey you may receive by mail or email. Your feedback will be used to make improvements to the healthcare experiences of our patients and their families. Surveys are administered by [employer] ?? If further treatment with your primary care physician or another doctor is recommended, it is important for you to keep the appointment. Call your primary care physician or return to the Emergency Department immediately if your condition worsens, fails to improve, or new symptoms develop. If you need to find a doctor, you can call [facility] [employer] Interactive Link for a referral at [phone] or toll free at [phone]) or log in to [email or web address].. ?? [facility], in keeping with [facility] guidance, no longer requires face masks for staff, patientsor visitors in most situations. Similiar to time spent indoors at other locations, there is the chance that you were exposed to repiratory viruses during your time with us (such as flu or COVID-19). If you develop symptoms concerning for a viral respiratory infection, please seek testing (and treatment if indicated) from your medical provider or home test kit. ?? You can view and manage your care through the patient portal or by using a health care morris of your choosing. [employer] is a website that allows you to securely view your medical information including your hospital discharge summary, office visit summaries, medications and follow-up visits. You can also request appointments, renew medications, and request access to your medical information using a health care morris of your choosing, or just ask a question. You can enroll at [email or web address] or register during your next office visit. You have been discharged from [facility], Patient Care Unit: S3??. If you have any questions regarding these instructions, including results of studies pending, afteryou leave, please call us and we will be happy to assist you 05/01. [facility] Your Care Team Attending Physician Sherley Meza MD?? Consulting Providers Sherley Meza MD?? Discharging Providers Sherley Meza MD Reason for Your Visit Pt. coming from home. Walking down steps, fell down two stairs. Pt. has swelling to L knee and endorses L knee pain. CMS intact in L foot. Pt. denies LOC or headstrike. Pt. not on thinners.?? Your Diagnosis Closed displaced supracondylar fracture of distal end of left femur with intracondylar extension Fall Nondisplaced bimalleolar fracture of left lower leg, initial encounter for closed fracture Osteoarthritis Overactive bladder Tests Performed Below is a partial list of the tests performed during your hospitalization. You may have had other tests and procedures not included in this list. Please discuss all test results with your provider. Basic Metabolic Panel Calcium Ionized CBC CBC w/ Differential Comprehensive Metabolic Panel High??Sensitivity??Troponin T HOLD GEL TUBE Magnesium Level TSH with T4 Reflex (Adults Only) XR Ankle Min 3 Views Left XR C-Arm > 1 Hour XR Chest Single Frontal View XR Femur 2 Views Left XR Pelvis 1 or 2 Views Complete Urinalysis/Reflex Culture (Urinalysis Complete/Reflex Culture)?? Type and Screen?? Primary Care Provider Luann Chapman MD? Discharge Vitals Temperature: 98.8 DegF Height: 155 cm Pulse Rate:??100 bpm??High Weight: 61.8 kg Respiratory Rate: 20 br/min Body Mass Index:??25.72 kg/m2??High Systolic Blood Pressure: 113 mm Hg Body surface area: 1.63 Diastolic Blood Pressure:??44 mm Hg??Low ?? Oxygen Saturation: 97 % ?? Studies Pending All studies ordered during this hospital stay have been completed unless listed below. Please discuss all pending results with your provider listed above in these instructions. ?? Complete Urinalysis/Reflex Culture (Urinalysis Complete/Reflex Culture)?? Type and Screen?? What to do next Instructions From Your Doctor ?? Orders??:OOB as Gerald ??Start with bed to chair transfers,, advance as safety and tolerance allow ??With Walker ??Toe Touch Only ??Operative ??may rest foot flat on floor, no more than weight of legNO HOPPING!!!! ??Patient has recently recovered from a right femur fracture, and total knee, so may be limited on her right-hand side to some degree as well. Status: ??No Resuscitation? 07/17/23 12:47:00 EST?? Scheduled Follow-Up Appointments Thursday 9:45 AM EDT ?? With: Collette So NP Where: [facility] [address] [place] [id number]- Status: Pending You Need to Schedule the Following Appointments Follow Up with??Ari FLYNN , Luann Mace Where: [address] [place] [address]- Discharge Medications JEWELL GUERRIER :1945 Visit Date:07/14/2023 Medications: Please continue your medications until treatment is completed or stopped by your provider. Medications not listed below should be discontinued. Discuss any questions related to medications with your provider. What How Much When Instructions Next Dose New Metoprolol (metoprolol succinate 50 mg oral capsule, extended release) 1 capsule Oral Twice a day Duration: 30 Days / tonight at 9pm New Oxycodone (oxyCODONE 5 mg oral tablet) 1 tab(s) Oral Every 6 hours as needed for as needed for pain Duration: 5 Days Printed Prescription as needed, next dose at 8pm New rivaroxaban (rivaroxaban 20 mg oral tablet) 20 Milligram Oral Daily at supper Duration: 30 Days 07/17 today at 5pm Changed Ammonium Lactate 12% (ammonium lactate 12% topical cream) 1 morris Topically Daily in the morning as needed for Dry Skin as needed Changed Ascorbic Acid (Vitamin C 500 mg oral tablet) 1 tab(s) Oral Daily 2/3 tomorrow morning Changed Diclofenac Topical (diclofenac 1% topical gel) 1-4 gm Topically 4 times a day resume home schedule Changed Gabapentin (Neurontin 100 mg oral capsule) 2 capsule Oral Daily at Bedtime 07/17 tonight Changed Glucosamine (glucosamine 500 mg oral tablet) 1 tab(s) Oral Daily 2/3 tomorrow morning Changed Meloxicam (Mobic 15 mg oral tablet) 1 tab(s) Oral Daily 2/3 tomorrow morning Unchanged Ergocalciferol (Vitamin D2 50,000 intl units (1.25 mg) oral capsule) 1 capsule Oral Every Thursday 2/3 tomorrow morning Unchanged Loratadine (Claritin 10 mg oral tablet) 1 tab(s) Oral Daily 2/3 tomorrow morning Unchanged Multivitamin 1 tab(s) Oral Daily 2/3 tomorrow morning Unchanged Oxybutynin (oxybutynin 10 mg/ 24 hr oral tablet, extended release) 1 tab(s) Oral Daily 2/3 tomorrow morning Unchanged Tetrahydrozoline Ophthalmic (Visine 0.05% ophthalmic solution) 1 Drops Both eyes 4 times a day as needed for as needed for dry eyes as needed ?? What How Much When Comments Stop Taking Enoxaparin 40 Milligram Subcutaneous Injection Daily Stop Taking Senna (Senna 8.6 mg oral tablet) 1 tab(s) Oral Daily Prescription Given During Visit Metoprolol (metoprolol succinate 50 mg oral capsule, extended release) - 1 capsule = 50 mg, By Mouth, 2 times a day, # 60 capsule, 0 Refills?? Oxycodone (oxyCODONE 5 mg oral tablet) - 1 tablet = 5 mg, By Mouth, Every 6 hours, # 20 tablet, 0 Refills?? rivaroxaban (rivaroxaban 20 mg oral tablet) - 20 mg, By Mouth, Daily at supper, # 30 capsule, 0 Refills?? Laboratory Results Below is a partial list of the most recent Laboratory test results done prior to this discharge. You may have had other tests and procedures not included in this list. Please discuss all test resultswith your provider. Antibody Screen - Negative (07/15/2023) Blood Type - O Positive (07/15/2023) Est Creatinine Clearance - 86.15 mL/min (07/15/2023) Basic Metabolic Panel (07/15/2023) ???Sodium - 142 mmol/L???Potassium - 3.9 mmol/L???Chloride - 108 mmol/L???Bicarbonate Level - 26 mmol/L???Anion Gap - 8???Glucose Level - 114 mg/dL???BUN - 19 mg/dL???Creatinine-Blood - 0.4 mg/dL???Estimated GFR Creatinine - 103 ML/MIN/1.73 M2???Calcium - 8.9 mg/dL Calcium Ionized (07/14/2023) ???Calcium, Ionized pH Corrected - 1.32 mmol/L CBC (07/17/2023) ???WBC - 9.9 k/mm3???RBC - 2.88 m/mm3???Hgb - 9.2 Gm/dL???Hct - 27.6 %???MCV - 95.8 femtoliters???MCH - 31.9 pg???MCHC - 33.3 g/dL???Platelet Count - 182 k/mm3???RDW-SD - 48.7 femtoliters???MPV - 10.8 femtoliters???Nucleated RBC (Automated) - 0.0 #/100 WBC'S???Abs. NRBC - 0.0 k/mm3 CBC w/ Differential (07/14/2023) ???WBC - 13.7 k/mm3???RBC - 4.52 m/mm3???Hgb - 14.3 Gm/dL???Hct - 43.5 %???MCV - 96.2 femtoliters???MCH - 31.6 pg???MCHC - 32.9 g/dL???Platelet Count - 262 k/mm3???RDW-SD - 49.6 femtoliters???MPV - 11.0 femtoliters???Nucleated RBC (Automated) - 0.0 #/100 WBC'S???Abs. NRBC - 0.0 k/mm3???Abs. Neut - 10.2 k/mm3???Abs. Lymph - 2.7 k/mm3???Abs. Gilmer - 0.6 k/mm3???Abs. Eo - 0.1 k/mm3???Abs. Baso - 0.1 k/mm3???Neut % - 74.6 %???Lymph % - 19.9 %???Gilmer % - 4.1 %???Eos % - 0.4 %???Baso % - 0.5 %???Imm Gran - 0.5 %???Abs. Imm Gran - 0.1 k/mm3 Comprehensive Metabolic Panel (07/14/2023) ???Sodium - 140 mmol/L???Potassium - 3.9 mmol/L???Chloride - 101 mmol/L???Bicarbonate Level - 24 mmol/L???Anion Gap - 15???Glucose Level - 152 mg/dL???BUN - 26 mg/dL???Creatinine-Blood - 0.4 mg/dL???Estimated GFR Creatinine - 99 ML/MIN/1.73 M2???Calcium - 10.4 mg/dL???Protein, Total - 6.1 Gm/dL???Al bumin - 4.2 Gm/dL???AG Ratio - 2.2???Alkaline Phosphatase - 93 units/L???AST (SGOT) - 22 units/L???ALT (SGPT) - 15 units/L???Bilirubin, Total - 0.6 mg/dL High??Sensitivity??Troponin T (07/15/2023) ???High Sensitivity Troponin (HSTnT) - 90 ng/L HOLD GEL TUBE (07/17/2023) ???Hold Gel Top - SPECIMEN DISCARDED AFTER 1 WEEK Magnesium Level (07/14/2023) ???Magnesium - 2.2 mg/dL TSH with T4 Reflex (Adults Only) (07/14/2023) ???TSH - 1.52 uIU/mL Allergies (NKA means No Known Allergies) NKA Problems No qualifying data available Education Materials Below is the list of Educational Leaflet Providered with your Discharge Instructions. Valuables and Belongings I fully understand and agree that [facility] accepts no responsibility for all my personal property including clothing, toilet articles, radios, jewelry, dentures, hearing aids, rings, money, or any other property that is in my possession or is brought to me after admission. I understand certain valuables may be placed in a hospital safe for a short period of time. I understand that the hospital is not liable for loss or damage due to accident, fire, or other natural occurrence while said property is in the safe. I accept full responsibility for any personal property that I keep with me, and will not hold the hospital responsible in case of loss or disappearance. I acknowledge that i have been encouraged to send valuables and belongings home. ?? Review of Valuable and Belonging List: With patient Possessions released to: no valuables or belongings present in pre-op Date for Pt to Sign Valuables/Belongings: 07/17/23 12:23:00 ?? Other Discharge Information ? Case Management Discharge Plan?? Discharge Plan?? Discharge Agency Information?? Discharge Level of Care at Discharge: long-term facility Name of Agency #1: Eleni Russo [facility] Discharge Transportation Arranged: [facility] [phone] [facility] [phone] Agency E Learning Designer #1: Intake Discharge Nursing Homes/Rehab Facilities: Eleni Russo [facility] Service Categories #1: Occupational Therapy, Physical Therapy, Retirement ?? Service Comments #1: Eleni Russo [facility] will provide your care after discharge, if any questions or concerns please contact the facility directly. ?? Pulmonary Rehab Status?? Pulmonary Rehab Discharge Status?? Respiratory Rate: 20 br/min ? Common Emergency Awareness Tips IS IT A STROKE? Act FAST and Check for these signs: FACE Does the face look uneven? ARM Does one arm drift down? SPEECH Does their speech sound strange? TIME Call at any sign of stroke ?? Heart Attack Signs Chest discomfort: Most heart attacks involve discomfort in the center of the chest and lasts more than a few minutes, or goes away and comes back. It can feel like uncomfortable pressure, squeezing, fullness or pain. Discomfort in upper body: Symptoms can include pain or discomfort in one or both arms, back, neck, jaw or stomach. Shortness of breath: With or without discomfort. Other signs: Breaking out in a cold sweat, nausea, or lightheaded. Remember, MINUTES DO MATTER. If you experience any of these heart attack warning signs, call to get immediate medical attention! ?? Smoking can increase your chances of developing chronic health problems and can cause harmful effects to other family members in your house. If you smoke, you are strongly encouraged to quit. Please call [facility] Interactive Link at [phone] or 1-227-363Patsnap ([phone]) or log in to [email or web address] for referrals to smoking cessation programs. ?? 651 Suicide & Crisis Lifeline is available 05/01 if you or someone you know needs to find a reason to keep living. By calling 904 you'll be connected to a skilled, trained counselor at a crisis center in your area. INPATIENT DISCHARGE INSTRUCTIONS SIGNATURE PAGE JEWELL GUERRIER Location:[facility] Registration Date and Time:07/14/2023 18:21 EST Primary Care Physician: Luann Chapman MD, Attending Physician: Derrick FLYNN [facility], I JEWELL GUERRIER, have received the above patient education materials/instructions and have verbalized understanding. If ambulance or transport services are being used I further acknowledge being given a choice of service. ?? If you need to contact me, please call me at this number: . Patient/Boom Cat Operator Name: Patient/Boom Cat Operator Signature: Relationship to Patient: Witness Name/Signature: Date: * Rosmery Cunha RN: PERFORM, SIGN, VERIFY Event Display: Patient Education Handout Authored Date: [id number] Patient Care team information Care Team Personnel Name: Madina Bliss RN Position: S RN Member Role: Primary Care Nurse Name: Kate Nassar RN Position: [facility] SN RN Member Role: Primary Care Nurse Name: Willow Blankenship RN Position: S RN Member Role: Primary Care Nurse Name: Oscar Dhillon RN Position: S RN Member Role: Primary Care Nurse Name: Luann Chapman MD Position: Reference Physician Member Role: PCP Address: Address: [address] Name: Mayank Quezada RN Position: S [...] Related Persons Name: KATE GUERRIER Address: home [address] [place] [id number] Name: ERIC GUERRIER Address: [address] [address]
--- OUTSIDE RECORDS SUMMARY | 2024-03-30 09:55 | XMS_ITS | Continuity of Care Document ---
Author Organization [facility] ter Address [address] [place] [address]- Care Team Providers Care Health Associate Name Role Phone Ari FLYNN, Luann Mace Primary Care Physician Encounter [facility] Date(s): 09/30/21 - 11/23/[address] [address] Attending Physician: Suzette De Los Santos MD Allergies, Adverse Reactions, Alerts No Known [...] opioid drug. Start Date: 07/26/21 Status: Ordered meloxicam 7.5 mg oral tablet 1 tablet = 7.5 mg, By Mouth, Daily, # 30 tablet, 0 Refills, Maintenance, 10/18/21 11:49:00 EDT, Tablet, Partial fill upon patient request if the prescription is for a schedule II opioid drug. Start Date: 10/18/21 Status: Ordered Milk of Magnesia Liquid 30 [...] opioid drug. Start Date: 11/02/20 Status: Ordered Vital Signs Most recent to oldest [Reference Range]: 1 Height 155 cm (10/18/21 12:20 PM) Dry Weight 63.8 kg (10/18/21 12:20 PM) Dry Weight Obtained Via Patient/family s tated (10/18/21 12:20 PM) Social History Social History Type Response Smoking Status Former smoker; Other : quit smoking 40 years ago; entered on: 08/11/14 Sex Female
--- OUTSIDE RECORDS SUMMARY | 2024-03-30 09:55 | XMS_ITS | Continuity of Care Document ---
Author Organization [facility] Address [address] [place] [address]- Care Team Providers Care Beverage Sales Consultant Name Role Phone Ari FLYNN, Luann Mace Primary Care Physician Encounter [facility] Date(s): 08/28/23 - 09/27/23 [facility] [address] [place] [address]- Attending Physician: Wilmar Chambers Admitting Physician: Wilmar Chambers Referring Physician: [id number] Allergies, Adverse Reactions, Alerts No Known Allergies [...] opioid drug. Start Date: 07/15/23 Status: Ordered Social History Social History Type Response Smoking Status Former smoker; Other : quit smoking 40 years ago; entered on: 08/11/14 Sex Female Patient Care team information Care Team Personnel Name: Madina Bliss RN Position: S RN Member Role: Primary Care Nurse Name: Kate Nassar RN Position: [facility] RN Member Role: Primary Care Nurse Name: Willow Blankenship RN Position: S RN Member Role: Primary Care Nurse Name: Oscar Dhillon RN Position: S RN Member Role: Primary Care Nurse Name: Luann Chapman MD Position: Reference Physician Member Role: PCP Address: Address: [address] Name: Mayank Quezada RN Position: S [...] Persons Name: KATE GUERRIER Address: [address] [place] [address] Name: ERIC GUERRIER Address: [address] [place] [address]
--- OUTSIDE RECORDS SUMMARY | 2024-03-30 09:55 | XMS_ITS | Continuity of Care Document ---
Author Organization [facility] ter Address [address] [place] [address]- Care Team Providers Care Loading Supervisor Name Role Phone Ari FLYNN, Luann Mace Primary Care Physician Encounter [facility] Date(s): 04/09/21 - 04/11/[address] [address] Discharge Disposition: A-Transfer VNA/Home Health Attending Physician: Niranjan San MD Admitting Physician: [...] opioid drug. Start Date: 04/10/21 Status: Ordered Acetaminophen Tablet 650 mg, Tablet, By Mouth, 04/11/21 7:00:00 EDT Start Date: 04/11/21 Stop Date: 04/11/21 Status: Completed Aspirin Tablet 325 mg, By Mouth, 2 [...] 8:36:00 EDT, 04/11/21 8:36:00 EDT, DIS Tablet, [facility], Partial fill upon patient request if the prescript... Start Date: 04/11/21 Stop Date: 04/18/21 Status: Ordered oxybutynin 10 mg/24 hr oral tablet, extended release 1 tablet = 10 mg, By Mouth, Daily, 0 Refills, Maintenance, 11/02/20 14:14:00 EDT, Partial fill uponpatient request if the prescription is for a schedule II opioid drug. Start Date: 11/02/20 Status: Ordered oxyCODONE 10 mg oral tablet See Instructions, Take 0.5-1 tablet every 4 hours as needed for moderate to severe pain., # 42 tablet, 0 Refills, Acute 04/17/21 8:00:00 EDT, 04/10/21 11:11:00 EDT, Tablet, [facility], Partial fill upon patient request if the prescriptio... Start Date: 04/10/21 Stop Date: 04/17/21 Status: Ordered oxyCODONE 5 mg oral tablet 5 mg, Tablet, By Mouth, Every 4 hours, PRN for Pain , Moderate, Routine, 04/10/21 8:06:00 EDT Start Date: 04/10/21 Stop Date: 04/17/21 Status: Ordered pantoprazole 40 mg oral delayed [...] opioid drug. Start Date: 04/10/21 Status: Ordered traMADol 50 mg oral tablet See Instructions, PRN Pain , Mild, Take 1-2 tablets every 6 hours as needed for mild pain., # 56 tablet, 0 Refills, Acute 04/16/21 8:00:00 EDT, 04/10/21 11:10:00 EDT, Tablet, [facility], Partial fill upon patient request if the prescript... Start Date: 04/10/21 Stop Date: 04/16/21 Status: Ordered Vitamin C 500 mg oral [...] Exam Date Time Procedure Performing Provider Status 04/09/21 10:38 PM Knee 1 or 2 Views Right Yuliya Cheung ra; Auth (Verified) Notes: (Knee 1 or 2 Views Right) Reason For Exam: Postop;Postop RESULT: Knee 1 or 2 Views Right Knee 1 or 2 Views Right INDICATION: Postop knee replacement COMPARISON: None. FINDINGS: Distal femoral and proximal tibial metallic components are in typical position. No periprosthetic fracture. Soft tissue emphysema, but no unexpected soft tissue findings. IMPRESSION: Typical postoperative appearance. WSN: [id number] Ordering Physician: Darling Westbrook Dictated By: Luís Dye MD Dictated Date/Time: 04/09/21 10:39 p Reviewed By: Luís Dye MD Signed By: Luís Dye MD Signed Date/Time: 04/09/21 10:39 pm Transcribed By: DEBBIE Transcribed Date/Time: 04/09/21 10:39 pm Vital Signs Most recent to oldest [Reference Range]: 1 2 3 Weight 74.0 kg (04/09/21 6:23 AM) 74.0 kg (04/09/21 5:17 AM) Oxygen Saturation [94-100 %] 99 % (04/11/21 6:48 AM) 95 % (04/11/21 4:48 AM) 96 % (04/10/21 11:33 PM) Pulse Rate [55-90 bpm] 80 bpm (04/11/21 6:48 AM) 89 bpm (04/11/21 4:48 AM) 91 bpm *H* (04/10/21 11:33 PM) Blood Pressure [90-138/55-84 mm Hg] 124/46mm Hg (04/11/21 6:48 AM) 105/39mm Hg (04/11/21 4:48 AM) 122/48mm Hg (04/10/21 11:33 PM) Respiratory Rate [16-30 br/min] 18 br/min (04/11/21 1:00 PM) 18 br/min (04/11/21 8:09 AM) 18 br/min (04/11/21 8:09 AM) Temperature [96.8-100.4 DegF] 98.5 DegF (04/11/21 6:48 AM) 98.8 DegF (04/11/21 4:48 AM) 99.1 DegF (04/10/21 11:33 PM) Mode of Delivery (Oxygen) Room air (04/11/21 6:48 AM) Room air (04/11/21 4:48 AM) Room air (04/10/21 11:33 PM) Blood pressure sites Arm, right (04/11/21 6:48 AM) Arm, left (04/11/21 4:48 AM) Arm, left (04/10/21 11:33 PM) Temperature Route Oral (04/11/21 6:48 AM) Oral (04/11/21 4:48 AM) Oral (04/10/21 11:33 PM) Dry Weight 74.0 kg (04/09/21 6:23 AM) 74.0 kg (04/09/21 5:17 AM) Weight Obtained Via Standing scale (04/09/21 5:17 AM) Dry Weight Obtained Via Standing scale (04/09/21 5:17 AM) Social History Social History Type Response Smoking Status Former smoker; Other : quit smoking 40 years ago; entered on: 08/11/14 Sex Female
--- OUTSIDE RECORDS SUMMARY | 2024-03-30 09:55 | XMS_ITS | Continuity of Care Document ---
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(Discharge Diagnosis) - 05/29/22 Fracture of femoral shaft, right, closed(Discharge Diagnosis) - 05/29/22 Discharge Disposition: A-Transfer SNF Attending Physician: Osvaldo FLYNN, Arnulfo Brooks Admitting Physician: Minoo Rashid MD Referring Physician: Not on Staff, Referring MD Allergies, Adverse Reactions, Alerts No Known Allergies Immunizations Given and Recorded Vaccine Date Status Refusal Reason SARS-CoV-2 (COVID-19) mRNA BNT-162b2 vac 05/30/21 Recorded SARS-CoV-2 (COVID-19) mRNA BNT-162b2 vac 08/08/20 Recorded SARS-CoV-2 (COVID-19) mRNA BNT-162b2 vac 07/18/20 Recorded Medications Allergy Med Allergy Med, 1, tablet, By Mouth, Daily, Maintenance, 05/26/22 19:06:00 EST Start Date: 05/26/22 Status: Ordered bisacodyl 10 mg rectal suppository 1 supp = 10 mg, Rectally, Daily, PRN Constipation, 0 Refills, Maintenance, 05/29/22 17:15:00 EST, Suppository, Partial fill upon patient request if the prescription is for a schedule II opioid drug. Start Date: 05/29/22 Status: Ordered Cholecalciferol 1 capsule, By Mouth, Daily, Maintenance, 05/26/22 19:05:00 EST, Partial fill upon patient request if the prescription is for a schedule II opioid drug. Start Date: 05/26/22 Status: Ordered Enoxaparin 0.4 mL = 40 mg, Subcutaneous Injection, Daily, 0 Refills, Maintenance, 05/29/22 17:15:00 EST, Injection, Partial fill upon patient request if the prescription is for a schedule II opioid drug. Start Date: 05/29/22 Status: Ordered Glucosamine 1 capsule, By Mouth, 2 times a day, Maintenance, 05/26/22 19:05:00 EST, Partial fill upon patient request if the prescription is for a schedule II opioid drug. Start Date: 05/26/22 Status: Ordered hydrocortisone 2.5% topical cream USE 1 APPLICATION RECTALLY 2 TO 4 TIMES A DAY NEEDED FOR HEMORRHOIDS Start Date: 05/25/22 Status: Ordered Milk of Magnesia Liquid 30 mL, By Mouth, 2 times a day, PRN Constipation, 0 Refills, Maintenance, 05/29/22 17:15:00 EST, Suspension, Partial fill upon patient request if the prescription is for a schedule II opioid drug. Start Date: 05/29/22 Status: Ordered Multivitamin 1 tablet, By Mouth, Daily, Maintenance, 05/26/22 19:04:00 EST, Partial fill upon patient request ifthe prescription is for a schedule II opioid drug. Start Date: 05/26/22 Status: Ordered oxybutynin 10 mg/24 hr oral tablet, extended release 1 tablet = 10 mg, By Mouth, Daily, # 30 tablet, 0 Refills, Maintenance, 05/25/22 23:08:00 EST, ER Tablet, Partial fill upon patient request if the prescription is for a schedule II opioid drug. Start Date: 05/25/22 Status: Ordered oxyCODONE 5 mg oral tablet 5 mg, Tablet, By Mouth, Every 4 hours for 7 days, PRN for Pain , Moderate, Routine, 05/26/22 14:35:00 EST, Stop date 06/02/22 14:34:00 EST Start Date: 05/26/22 Stop Date: 05/30/22 Status: Discontinued oxyCODONE 5 mg oral tablet 5 mg, 1, tablet, By Mouth, Every 4 hours, PRN, for 3 days, # 18 tablet, Refills 0, Tot. Refills 0, Acute 06/01/22 14:13:00 EST, Pain , Moderate, 05/29/22 14:13:00 EST, Print Requisition, Partial fillupon patient request if the prescription is for a s... Start Date: 05/29/22 Stop Date: 06/01/22 Status: Ordered Senna 8.6 mg oral tablet 8.6 mg, 1, tablet, By Mouth, Daily, Refills 0, Maintenance, 05/29/22 17:15:00 EST, Tablet, Partial fill upon patient request if the prescription is for a schedule II opioid drug. Start Date: 05/29/22 Status: Ordered Tylenol 325 mg oral tablet 650 mg, 2, tablet, By Mouth, Every 6 hours, Refills 0, Maintenance, 05/29/22 17:15:00 EST, Partial fill upon patient request if the prescription is for a schedule II opioid drug. Start Date: 05/29/22 Status: Ordered Vitamin C 1 tablet, By Mouth, Daily, 0 Refills, Maintenance, 05/26/22 9:40:00 EST, Partial fill upon patient request if the prescription is for a schedule II opioid drug. 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 There was no radiologist in attendance. FLUOROSCOPY TIME: 116.7 seconds EXPOSURE: 21.44 mGy (reference air kerma) TECHNOLOGIST TIME: 1 hour 45 minutes FINDINGS: Intraoperative images obtained during right hip ORIF with a long intramedullary imani and proximal interlocking transcervical screw as well as 2 distal interlocking screws. No evidence of hardware complication. Right knee arthroplasty is noted. IMPRESSION: See above. WSN: [id number] Ordering Physician: Arnulfo Riley Dictated By: Darren Hinson MD Dictated Date/Time: 05/27/22 2:01 pm Reviewed By: Darren Hinson MD Signed By: Darren Hinson MD Signed Date/Time: 05/27/22 2:01 pm Transcribed By: DEBBIE Transcribed Date/Time: 05/27/22 2:00 pm * Exam Date Time Procedure Performing Provider Status 05/27/22 1:49 PM XR Femur 2 Views Right Latoya Abad ; Lida (Verified) Notes: (XR Femur 2 Views Right) Reason For Exam: Right hip hardware removal and interan RESULT: Femur 2 Views Right Femur 2 Views Right, C-Arm > 1 Hour INDICATION: Reason: Right hip hardware removal and interan COMPARISONS: None TECHNIQUE: Fluoroscopy support was provided. There was no radiologist in attendance. FLUOROSCOPY TIME: 116.7 seconds EXPOSURE: 21.44 mGy (reference air kerma) TECHNOLOGIST TIME: 1 hour 45 minutes FINDINGS: Intraoperative images obtained during right hip ORIF with a long intramedullary imani and proximal interlocking transcervical screw as well as 2 distal interlocking screws. No evidence of hardware complication. Right knee arthroplasty is noted. IMPRESSION: See above. WSN: [id number] Ordering Physician: Arnulfo Riley Dictated By: Darren Hinson MD Dictated Date/Time: 05/27/22 2:01 pm Reviewed By: Darren Hinson MD Signed By: Darren Hinson MD Signed Date/Time: 05/27/22 2:01 pm Transcribed By: DEBBIE Transcribed Date/Time: 05/27/22 2:00 pm * Exam Date Time Procedure Performing Provider Status 05/25/22 8:51 PM Pelvis 1 or 2 Views Clarita Pandey; Nitesh [facility] (Verified) Notes: (Pelvis 1 or 2 Views) Reason For Exam: Pain RESULT: Pelvis 1 or 2 Views Femur 2 Views Right, Pelvis 1 or 2 Views INDICATION: Hx of Present Illness: Pt. comes in after falling at home landing on her right leg, right leg is rotated outward, pulses present warmth and sensation felt. 10 10 sharp pain in her right leg. A Ox3 VSS; Reason: Pain; Clinical Question(s): Fracture Fracture TECHNIQUE: AP view of the pelvis along with AP and lateral projections of the right femur. COMPARISON: X-ray 06/22/2021 FINDINGS: No pelvic or pubic bone fracture. No hip fracture or dislocation. The patient has undergone a remote ORIF of a distal femoral shaft fracture with sideplate and numerous pins. The patient is also undergone a total knee arthroplasty. There is a angulated displaced fracture extending through the proximal right femoral shaft just below the superior and of the sideplate. The most proximal ORIF screw is fractured. No periprosthetic fracture towards the knee arthroplasty. IMPRESSION: Status post ORIF distal femoral shaft fracture with microplate and screws. There is a displaced transverse fracture extending through the proximal femoral shaft just below the superior and of the ORIF hardware. The superiormost ORIF screw is fractured. No pelvic or hip fracture. WSN: [id number] Ordering Physician: Ron Capone Dictated By: Timothy Timmons MD Dictated Date/Time: 05/25/22 9:04 pm Reviewed By: Timothy Timmons MD Signed By: Timothy Timmons MD Signed Date/Time: 05/25/22 9:04 pm Transcribed By: DEBBIE Transcribed Date/Time: 05/25/22 9:02 pm * Exam Date Time Procedure Performing Provider Status 05/25/22 8:51 PM XR Femur 2 Views Right Clarita Pandey (Verified) Notes: (XR Femur 2 Views Right) Reason For Exam: Pain RESULT: Femur 2 Views Right Femur 2 Views Right, Pelvis 1 or 2 Views INDICATION: Hx of Present Illness: Pt. comes in after falling at home landing on her right leg, right leg is rotated outward, pulses present warmth and sensation felt. 10 10 sharp pain in her right leg. A Ox3 VSS; Reason: Pain; Clinical Question(s): Fracture Fracture TECHNIQUE: AP view of the pelvis along with AP and lateral projections of the right femur. COMPARISON: X-ray 06/22/2021 FINDINGS: No pelvic or pubic bone fracture. No hip fracture or dislocation. The patient has undergone a remote ORIF of a distal femoral shaft fracture with sideplate and numerous pins. The patient is also undergone a total knee arthroplasty. There is a angulated displaced fracture extending through the proximal right femoral shaft just below the superior and of the sideplate. The most proximal ORIF screw is fractured. No periprosthetic fracture towards the knee arthroplasty. IMPRESSION: Status post ORIF distal femoral shaft fracture with microplate and screws. There is a displaced transverse fracture extending through the proximal femoral shaft just below the superior and of the ORIF hardware. The superiormost ORIF screw is fractured. No pelvic or hip fracture. WSN: [id number] Ordering Physician: Ron Capone Dictated By: Timothy Timmons MD Dictated Date/Time: 05/25/22 9:04 pm Reviewed By: Timothy Timmons MD Signed By: Timothy Timmons MD Signed Date/Time: 05/25/22 9:04 pm Transcribed By: DEBBIE Transcribed Date/Time: 05/25/22 9:02 pm * Exam Date Time Procedure Performing Provider Status 05/25/22 8:51 PM Chest Single Frontal View Sa nasima Pandey; Modified Notes: (Chest Single Frontal View) Reason For Exam: Preop RESULT: Chest Single Frontal View Chest Single Frontal View Hx of Present Illness: Pt. comes in after falling at home landing on her right leg, right leg is rotated outward, pulses present warmth and sensation felt. 10 10 sharp pain in her right leg. A Ox3 VSS; Reason: Preop; Clinical Question(s): Pneumonia COMPARISON: None. FINDINGS: LINES AND TUBES: None. LUNGS AND PLEURA: Clear lungs. Normal pulmonary vascularity. No pleural effusion. No pneumothorax. HEART, MEDIASTINUM AND LESLIE: Mild prominence of the cardiac silhouette. Normal mediastinal and hilar contour. BONES AND SOFT TISSUES: No acute abnormality. Moderate to severe arthritic changes of both shoulder joints. IMPRESSION: No acute abnormality. WSN: [id number] Ordering Physician: Ron Capone Dictated By: Timothy Timmons MD Dictated Date/Time: 05/25/22 9:00 pm Reviewed By: Timothy Timmons MD Signed By: Timothy Timmons MD Signed Date/Time: 05/25/22 9:00 pm Transcribed By: DEBBIE Transcribed Date/Time: 05/25/22 9:00 pm * Exam Date Time Procedure Performing Provider Status 05/25/22 7:[address] Cervical Spine W/ O Contrast Tierra Dial; Auth (Verified) Notes: (CT Cervical Spine W/O Contrast) Reason For Exam: Neck trauma, dangerous injury mechanism;Trauma RESULT: CT Cervical Spine W/O Contrast CT Head/Brain W/O Contrast, CT Cervical Spine W/O Contrast INDICATION: Fall, concern for head trauma. TECHNIQUE: Noncontrast head CT using axial technique was reconstructed in axial and coronal planes.Noncontrast spiral CT through the cervical spine was formatted in 3 planes. Automatic tube modulation was used for the cervical spine and iterative dose reconstruction was used for both the head and cervical spine to optimize scan parameters and image quality. CTDIvol Body: 23.26 mGy, DLP Body: 554 mGy*cm. CTDIvol Head: 39.82 mGy, DLP Head: 637 mGy*cm. COMPARISON: None. FINDINGS: Chemical Worker View Findings, Lines and Tubes: None. BRAIN [...] sinuses and mastoid air cells are clear. Visualized orbits and globes are intact. The extracranial soft tissues are unremarkable. CERVICAL SPINE: No fracture. No acute osseous abnormalities. Moderate multilevel degenerative disc space narrowing and end plate irregularity. Minimal retrolisthesis of C5 on C6. OTHER BONES: No acute abnormality. CERVICAL SOFT TISSUES AND LUNG APICES: Normal soft tissues. Visualized lung apices are clear. IMPRESSION: No acute abnormality of the head or cervical spine. I have personally reviewed the images and I agree with this report. WSN: [id number] Ordering Physician: Ron Capone Dictated By: Zach Cabrales MD Dictated Date/Time: 05/25/22 7:50 pm Reviewed By: Maya Euceda MD Signed By: Maya Euceda MD Signed Date/Time: 05/25/22 7:55 pm Transcribed By: DEBBIE Transcribed Date/Time: 05/25/22 7:43 pm * Exam Date Time Procedure Performing Provider Status 05/25/22 7:[address] Head/Brain W/O Contrast RodriguezsagarTierra johnson i; Lida (Verified) Notes: (CT Head/Brain W/O Contrast) Reason For Exam: Trauma RESULT: CT Head/Brain W/O Contrast CT Head/Brain W/O Contrast, CT Cervical Spine W/O Contrast INDICATION: Fall, concern for head trauma. TECHNIQUE: Noncontrast head CT using axial technique was reconstructed in axial and coronal planes.Noncontrast spiral CT through the cervical spine was formatted in 3 planes. Automatic tube modulation was used for the cervical spine and iterative dose reconstruction was used for both the head and cervical spine to optimize scan parameters and image quality. CTDIvol Body: 23.26 mGy, DLP Body: 554 mGy*cm. CTDIvol Head: 39.82 mGy, DLP Head: 637 mGy*cm. COMPARISON: None. FINDINGS: Chemical Worker View Findings, Lines and Tubes: None. BRAIN [...] sinuses and mastoid air cells are clear. Visualized orbits and globes are intact. The extracranial soft tissues are unremarkable. CERVICAL SPINE: No fracture. No acute osseous abnormalities. Moderate multilevel degenerative disc space narrowing and end plate irregularity. Minimal retrolisthesis of C5 on C6. OTHER BONES: No acute abnormality. CERVICAL SOFT TISSUES AND LUNG APICES: Normal soft tissues. Visualized lung apices are clear. IMPRESSION: No acute abnormality of the head or cervical spine. I have personally reviewed the images and I agree with this report. WSN: [id number] Ordering Physician: Ron Capone Dictated By: Zach Cabrales MD Dictated Date/Time: 05/25/22 7:50 pm Reviewed By: Maya Euceda MD Signed By: Maya Euceda MD Signed Date/Time: 05/25/22 7:55 pm Transcribed By: DEBBIE Transcribed Date/Time: 05/25/22 7:43 pm Vital Signs Most recent to oldest [Reference Range]: 1 2 3 Height 164 cm (05/30/22 10:17 AM) 164 cm (05/29/22 3:42 PM) 164 cm (05/29/22 11:43 AM) Weight 63.5 kg (05/27/22 9:17 AM) 63.5 kg (05/26/22 9:34 AM) Oxygen Saturation [94-100 %] 97 % (05/30/22 10:17 AM) 94 % (05/30/22 6:00 AM) 96 % (05/30/22 3:58 AM) Pulse Rate [55-90 bpm] 110 bpm *H* (05/30/22 10:17 AM) 105 bpm *H* (05/30/22 6:00 AM) 107 bpm *H* (05/30/22 3:58 AM) Body Mass Index [18.5-24.99 kg/m2] 23.61 kg/m2 (05/27/22 9:17 AM) 23.61 kg/m2 (05/26/22 9:34 AM) Blood Pressure [90-138/55-84 mm Hg] 127/51mm Hg (05/30/22 10:17 AM) 115/50mm Hg (05/30/22 6:00 AM) 123/53mm Hg (05/30/22 3:58 AM) Respiratory Rate [16-30 br/min] 18 br/min (05/30/22 10:17 AM) 18 br/min (05/30/22 6:00 AM) 18 br/min (05/30/22 4:16 AM) Temperature [96.8-100.4 DegF] 98.1 DegF (05/30/22 10:17 AM) 99.7 DegF (05/30/22 6:00 AM) 99.9 DegF (05/30/22 3:58 AM) Liters per Minute 2 L/min (05/27/22 8:00 PM) 2 L/min (05/27/22 3:57 PM) 2 L/min (05/27/22 2:45 PM) Mode of Delivery (Oxygen) Room air (05/30/22 10:17 AM) Room air (05/30/22 6:00 AM) Room air (05/30/22 3:58 AM) Blood pressure sites Arm, right (05/30/22 10:17 AM) Arm, right (05/30/22 6:00 AM) Arm, right (05/30/22 3:58 AM) Temperature Route Oral (05/30/22 10:17 AM) Oral (05/30/22 6:00 AM) Oral (05/30/22 3:58 AM) Dry Weight 63.5 kg (05/26/22 9:34 AM) Social History Social History Type Response Smoking Status Former smoker; Other : quit smoking 40 years ago; entered on: 08/11/14 Sex Female EKG study * Event Display: ECG 12-Lead Authored Date: Please click on pdf link to open report * Event Display: ECG 12-Lead Authored Date: Ventricular Rate: 83 BPM Atrial Rate: 83 BPM P-R Interval: 156 ms QRS Duration: 116 ms Q-T Interval: 330 ms QTC Calculation(Bazett): 387 ms P [place]: 42 degrees R [place]: -46 degrees T [place]: 87 degrees Normal sinus rhythm Left anterior fascicular block Left ventricular hypertrophy with QRS widening and repolarization abnormality ( R in aVL , Ulises product ) Nonspecific ST and T wave abnormality lateral leads Abnormal ECG When compared with ECG of 04-MAR-2021 10:56, Premature ventricular complexes are no longer Present Non-specific change in ST segment in Lateral leads has replaced t-wave inversion T wave inversion no longer evident in Inferior leads T wave inversion no longer evident in Anterior leads Confirmed by OLIVIA ALVARADO ([id number]) on 05/26/2022 12:59:13 PM [place]: OLIVIA ALVARADO [facility] Progress note * Sheeba James RN: PERFORM, SIGN, VERIFY Event Display: Progress Note Hospital Authored Date: [id number] Patient: JEWELL GUERRIER Age: 77 years Sex: Female : 1945 Associated Diagnoses: None Author: Sheeba James RN Findings Problem Related to Alteration in Musculoskeletal : Alteration in Musculoskeletal Func/new 05/29/2022 22:00 EST Alteration in Musculoskeletal Related to Fracture, Mobility, Orthopedic Procedure Goals & Outcomes, Musculoskeletal Affected extremity will maintain color/motion/sensation, Pt able to perform ADL's to best of ability, Pt demonstrates precautions/exercise/ transfers per protocol, Pt will ambulate safely with assistive device, Pt will be free from complications of immobility, Pt will demonstrate ability to participate in ADL's, Pt will report acceptable level of comfort/painrelief Interventions, Musculoskeletal Monitor patients ambulation status, monitor Color/Motion/Sensation, Assist with repositioning, Encourage deep breathing & coughing exercises, Notify MD immediately if tissue perfusion deteriorates, Obtain assistive devices as needed, Teach & Encourage use of Incentive spirometer, Teach pt/caregiver on use of pain scale, Teach Pt/caregiver techniques to increase mobility, Teach Pt/caregiver on safety precautions BH Goals/Interventions, Musculoskeletal Yes Musculoskeletal, Problem Start 05/27/2022 0:17 Reviewed Plan with, Musculoskeletal Patient Patient Progression, Musculoskeletal Pt progressing according to plan . Nursing Data Vital Signs : VITAL SIGNS SECTION 05/30/2022 3:58 EST Temperature 99.9 DegF Temperature Route Oral Pulse Rate 107 bpm H Respiratory Rate 18 br/min Systolic Blood Pressure 123 mm Hg Diastolic Blood Pressure 53 mm Hg L Blood pressure sites Arm, right Oxygen Saturation 96 % Mode of Delivery (Oxygen) Room air 05/29/2022 20:08 EST Temperature 98.8 DegF Temperature Route Oral Pulse Rate 106 bpm H Respiratory Rate 18 br/min Systolic Blood Pressure 116 mm Hg Diastolic Blood Pressure 55 mm Hg Blood pressure sites Arm, right Oxygen Saturation 93 % L Mode of Delivery (Oxygen) Room air . Narrative/Incidental Patient is alert and oriented x4. Denies chest pain. +PP and +CMS. C-boot on left leg only. Lungs are clear, dim at bases on room air. Encouraged use of incentive spirometer. Abdomen is soft, round, and non tender. Bowel sounds present and +flatus. tolerating regular diet and denies nausea and vomiting. Last bowel movement 05/24. Bowel meds given. Voiding clear yellow urine--using the commode. Right hip DSD, C/D/I. Right knee to thigh KELTON wrap, C/D/I. Patient reports 6/10 pain. Medicated with scheduled medications and PRN oxycodone. Ambulating as a 2 assist with a walker. Right leg toe touch only. Stand pivot to commode. Patient is resting comfortably in bed, wheels locked, in lowest positio n. Call malik is in reach and patient rings appropriately. . Discharge Information Case Management Discharge Plan : Case Management Discharge Plan Data 05/29/2022 14:21 EST Discharge Level of Care at Discharge residential facility Discharge Nursing Homes/Rehab Facilities [facility] Discharge Transportation Arranged [facility] [address] [facility] [id number] [phone] Discharge Arranged Transport Date/Time 05/30/2022 11:00 Mode of Transportation Arranged Ambulance Name of Person Notified of Transfer Pt given DC Plan and IMM at bedside. Rehabilitation Discharge : Rehab Discharge Index 05/29/2022 9:09 EST Walker: distance < 10 05/28/2022 16:24 EST Comments on treatment indicated 77F s/p R femur nailing with an InterTAN and Removal of deep hardware, right femur locking plate (Dr. Riley) on 05/27. TDWB RLE. PT for bed mob, trans, balance, strengthening, SPT to chair. Rehab indicated. Walker: distance < 10 Distance pt will ambulate >5' Full chart review completed Yes Hospital course Per [facility] Other findings Mod complexity 2/2 PMH and reason for hospitalization Plan of care PT Gait training, Transfer training, Therapeutic exercise, Functional Activities, Balance training * Clarita Zuniga: PERFORM, SIGN, VERIFY Event Display: Progress Note Hospital Authored Date: [id number] Patient: JEWELL GUERRIER Age: 77 years Sex: Female : 1945 Associated Diagnoses: None Author: Clarita Zuniga POD #2 S: Pt. seen and examined earlier today. Overnight notes reviewed. She admits that she is feeling much better since surgery. Her pain is well controlled on current pain medication regimen. She denies any pain currently at rest. Participating with PT; currently up to a chair. Dressing change today.Pineda been accepted at [facility] for tomorrow morning @ 11 am. Tolerating oral diet without n/v. Denies any c/p or sob. Voiding on own with purewick. No BM yet but + flatus. No further concerns. Allquestions answered. O: T 98.2-99.8, HR 110-118, BP 105-115/52-60, 94-97% RA WBC 9.2, H&H 7.9/24.5, Plt 242 Gen: Sitting in hospital recliner, awake and alert, NAD RLE: Circumferential dressing from toes to thigh in place, C/D/I - removed Surgical incisions along lateral thigh with gregory intact; no active drainage or surrounding erythema/warmth/ecchymosis DSDs reapplied Able to flex/extend toes; toes warm +DF/PF + palpable DP pulse Calf supple and non-tender to palpation Thigh with moderate but soft edema, minimally tender to palpation laterally Sensation/motor appear intact distally A/P: 77 y/o female POD #2 deep HW removal of right femur and new right intertan placed - Appreciate Medicine input/recs - OOB with PT, TDWB RLE - Pain control - Scheduled Tylenol - Oxycodone prn breakthrough pain - Dressing changed today; daily DSDs per nursing, order placed in [facility] - Encourage IS/deep breathing - Bowel meds prn constipation - DVT prophylaxis: Lovenox - D/C planning: likely to rehab POD #3 * Ronak Rogers RN: PERFORM, SIGN, VERIFY Event Display: Progress Note Hospital Authored Date: Patient: JEWELL GUERRIER Age: 77 years Sex: Female : 1945 Associated Diagnoses: None Author: Ronak Rogers RN Findings Problem Related to Alteration in Musculoskeletal : Alteration in Musculoskeletal [facility]/new 05/29/2022 13:17 EST Alteration in Musculoskeletal Related to Fracture, Mobility, Orthopedic Procedure Goals & Outcomes, Musculoskeletal Affected extremity will maintain color/motion/sensation, Pt able to perform ADL's to best of ability, Pt demonstrates precautions/exercise/ transfers per protocol, Pt will ambulate safely with assistive device, Pt will be free from complications of immobility, Pt will demonstrate ability to participate in ADL's, Pt will report acceptable level of comfort/painrelief Interventions, Musculoskeletal Monitor patients ambulation status, monitor [...] BH Goals/Interventions, Musculoskeletal Yes Musculoskeletal, Problem Start 05/27/2022 0:17 Reviewed Plan with, Musculoskeletal Patient Patient Progression, Musculoskeletal Pt progressing according to plan . Nursing Data Narrative/Incidental patient is alert and oriented x 4. states pain is a 4/10. pain is relieved by PRN oxycodone. patient denies any numbness or tingling extremities is able to wiggle toes bilaterally. lung sounds clear throughout on room air. denies shortness of breath, denies chest pain. +pp bilaterally palpable. SCDto left leg. tolerating regular diet. abdomen is soft and non tender. + bowel sounds present. + flatus. + belching. denies nausea or vomiting. provided patient PRN milk of mag as patient has not had a bowel movement since 05/24. patient now using bedside commode instead of purewick voiding clear yellow urine. ambulates toe touch on the right leg with 1-2 assistance with the walker. to commode and chair. right hip dry sterile dressing is clean dry and intact. right leg kelton wrapped is intact. . Discharge Information Rehabilitation Discharge : Rehab Discharge Index 05/29/2022 9:09 EST Walker: distance < 10 05/28/2022 16:24 EST Comments on treatment indicated 77F s/p R femur nailing with an InterTAN and Removal of deep hardware, right femur locking plate (Dr. Riley) on 05/27. TDWB RLE. PT for bed mob, trans, balance, strengthening, SPT to chair. Rehab indicated. Walker: distance < 10 Distance pt will ambulate >5' Full chart review completed Yes Hospital course Per [facility] Other findings Mod complexity 2/2 PMH and reason for hospitalization Plan of care PT Gait training, Transfer training, Therapeutic exercise, Functional Activities, Balance training Note * Danelle Berrios RN: PERFORM Event Display: Discharge/Transfer Note Hospital Authored Date: [id number] Nursing Discharge Note Entered On: 05/30/2022 12:01 EST Performed On: 05/30/2022 12:00 EST by Danelle Berrios RN Nursing Discharge Note 2 Discharge Time : 05/30/2022 11:35 EST Discharge Level of Care at Discharge : residential facility Discharge Nursing Homes/Rehab [facility] Via : Ambulance Patient Accompanied Off Unit with : Ambulance/Chair Van Personnel Handover Given to Transport Personnel : Yes DC Instructions Provided & Signed by Pt : No Patient Understands D/C Instructions : No Patient Instructions Discharge Signed : No Instructions for Discharge Comments : all paperwork completed by disability case manager, patient aware of plan and agrees Did Pt have Specialty Bed or Wound Vac : No Danelle Berrios RN - 05/30/2022 12:00 EST * Sarah Mcgarry: MODIFY, MODIFY, SIGN, VERIFY, MODIFY, PERFORM, MODIFY Event Display: Discharge/Transfer Note Hospital Authored Date: [id number] Patient: JEWELL GUERRIER Age: 77 years Sex: Female : 1945 Associated Diagnoses: None Author: Sarah Mcgarry Discharge Information Chief Complaint/Reason for Admission Right leg pain Principal Discharge Diagnosis Periprosthetic fracture around internal prosthetic right knee joint: Present on admission - yes. Fracture of femoral shaft, right, closed: Present on admission - yes. Secondary Discharge Diagnoses Overactive bladder: Present on admission - yes. Acute blood loss as cause of postoperative anemia: Present on admission - no. Patient is aware of diagnosis Procedures Orthopedics: 1. Right femur nailing with an InterTAN. 2. Removal of deep hardware, right femur locking plate.. Allergies Allergic Reactions (Selected) NKA Discharge condition: good Compared to admission: improved Functional Status: ambulatory with assistance TDWB RLE Discharge Disposition Transfer to: custodial facility. Discharge Summary distribution: Route to attending, referring, and primary care provider. Route to: Ari FLYNN , Luann Donohue Discharge Date 05/30/2022 Admission Date 05/25/2022 Code Status No Resuscitation. Hospital Course Typed narrative Jewell is a 77-year-old female, who was seen in regard to her right leg pain. The patient began experiencing this pain on 05/25 when she was taking her trash out, reports that she had sustained a fallwhen this occurred. She had pain and deformity about the right leg with inability to weightbear right lower extremity. 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 This was followed by a right total knee arthroplasty and ORIF of the right femur. The patient's initial surgery was in 11/2020 for hardware removal in preparation for knee replacement.Knee replacement was then performed by Dr. San, 04/09/2021. The patient then had repeat x-rays performed for femoral nonunion by Dr. Carrie Riley, 08/07/2021. The patient does report she has been experiencing pain about the leg, has had MRIs and CT scans of both the femur as well as her back. She is unaware of the results of these so far. Imaging was obtained at [facility]. The patient denied numbness or tingling about the right lower extremity. X-rays in the ED revealed a periprosthetic femur fracture. Orthopedics was consulted and surgery recommended. She was evaluated and clearedfor surgery by Medicine team who continued to follow her postoperatively. Their recommendations were implemented and their most recent progress note is included below. Operative management was indicated and on 05/27/22 the patient underwent the above-mentioned procedure, which was well tolerated. Postoperatively, the patient remained hemodynamically stable without complications. She had a drop in H&H postop but did not require a transfusion. Patient has been seen by PT and rehab was recommended. At this time, patient is afebrile, tolerating an oral diet, voiding, and pain is well controlled with oral pain medications. Her postop course has been unremarkable. Appropriate d/c and F/U instruction were provided, as well as scripts for pain medications. Medicine Recommendations (Note from 05/26/22): Assessment/Plan Assessment: 77-year-old female with past medical history significant for osteoarthritis, carpal tunnel syndrome, postnasal drip, chronic headaches and overactive bladder. She is status post right TKA March 2021, right femur ORIF July 2021 and repair of subacute radial sagittalband rupture of the right ring finger December 2021. All surgeries done under general anesthesia without significant complications. On the day of admission, in the absence of any prodromal symptoms, while getting her garbage from back porch, she fell. She was unable to get back up due to severe right-sided hip pain and was found to have a femur fracture. Currently awaiting OR for ORIF. Femur fracture (S72.90XA): - Mechanism of injury is a mechanical fall - Admitted to orthopedic service - Provide antipyretics (acetaminophen) , analgesics (acetaminophen and if needed oxycodone, IV morphine) , antiemetics (zofran IV) and laxatives (combined docusate + senna) as needed - Nothing by mouth overnight pending procedure - Gentle IV fluids: LR at 80 MLS per hour; can discontinue once pt. taking PO consistently. - Patient does not have a direct contraindication for ORIF Preop examination (Z01.818): Cardiac Risk: Using the Marcelino preoperative risk calculator we can estimate that the patient has a low (< 1%) risk of significant cardiac events post operatively giving the patient an overall acceptable risk for this surgery. Pulmonary Risk: Using the ARISCAT calculator the overall risk of respiratory failure is LOW (1.6%) for in-hospital pulmonary complications (composite including respiratory failure, respiratory infection, pleural effusion, atelectasis, pneumothorax, bronchospasm, aspiration pneumonitis). The patient's STOP BANG predicts a low (<4) risk of DEVYN. All postoperative patients should receive incentivespirometry and early ambulation should be encouraged. Overactive bladder (N32.81): Continue oxybutynin VTE Prophylaxis: Lovenox subq, per orthopedic protocol. Code Status: DNR confirmed at bedside Thank you for the consultation. Will sign off. If any questions or concerns please page medicine consultation pager, [phone] (7a-4p); [phone] (4p-8a) Significant Results Results: Laboratory 05/30/2022 7:27 EST Blood Type O Positive Antibody Screen Negative 05/30/2022 2:34 EST WBC 9.5 k/mm3 RBC 2.32 m/mm3 L Hgb 7.3 Gm/dL L Hct 22.5 % L MCV 97.0 femtoliters MCH 31.5 pg MCHC 32.4 g/dL L Platelet Count 260 k/mm3 RDW-SD 47.1 femtoliters H MPV 10.5 femtoliters Nucleated RBC (Automated) 0.0 #/100 WBC'S Abs. NRBC 0.0 k/mm3 05/29/2022 8:08 EST COVID-19 PCR Specimen Source NASAL COVID-19 PCR Result NEGATIVE 05/28/2022 2:31 EST Sodium 138 mmol/L Potassium 4.5 mmol/L Chloride 100 mmol/L Bicarbonate Level 30 mmol/L H Anion Gap 8 Glucose Level 112 mg/dL H BUN 11 mg/dL Creatinine-Blood 0.5 mg/dL Estimated GFR Creatinine 96 ML/MIN/1.73 M2 . Discharge Plan Discharge Disposition Discharge: Post Acute Care, Prescription Given this visit:Prescriptions Oxycodone (oxyCODONE 5 mg oral tablet) 1 tablet = 5 mg, By Mouth, Every 4 hours, # 18 tablet, 0 Refills Next Dose: Patient Instructions Given:Please contact Dr. Riley???s office with any further questions or concerns regarding your injury or surgery. Please take a laxative or stool softener, such as colace or milk of magnesia, as needed for constipation. Elevate operative extremity to reduce swelling; keep bandage clean and dry If any fever, chills, uncontrolled pain, or any other issues you feel may be urgent, do present, consult your physician and/or return to the Emergency Room. You may resume your home medications as prescribed by your PCP You will need to continue lovenox injections for DVT prophylaxis (to prevent blood clots) for at least 4 weeks or until instructed otherwise by your surgeon. Please do not take any NSAID???s, Ibuprofen, Toradol, Disalcid, or Salicylates unless specifically cleared with your Surgeon (delays bone healing) (aspirin OK) NO EXCEPTIONS Continue touchdown weightbearing right leg for 3 months or until advanced in the office. Continue daily dry dressing changes. Dressings may be removed for showering and incisions can get wet. Pat dry after showering. No swimming, tub baths or soaking leg until gregory/splint removed and incisions fully healed. Education Given: Patient Follow-up:Added Follow Up Time Frame Comments Osvaldo FLYNN, Arnulfo Brooks 2 to 3 weeks Please call to confirm follow up appointment . MEDICATION LIST (Selected) Prescriptions Prescribed oxyCODONE 5 mg oral tablet: 5 mg, 1, tablet, By Mouth, Every 4 hours, PRN, for 3 days, # 18 tablet,Refills 0, Tot. Refills 0, Acute 06/01/22 14:13:00 EST, Pain , Moderate, 05/29/22 14:13:00 EST, Print Requisition, Partial fill upon patient request if the prescription is for a s... Documented Medications Documented Allergy Med: Allergy Med, 1, tablet, By Mouth, Daily, Maintenance, 05/26/22 19:06:00 EST Cholecalciferol: 1 capsule, By Mouth, Daily, Maintenance, 05/26/22 19:05:00 EST, Partial fill upon patient request if the prescription is for a schedule II opioid drug. Enoxaparin: 0.4 mL = 40 mg, Subcutaneous Injection, Daily, 0 Refills, Maintenance, 05/29/22 17:15:00 EST, Injection, Partial fill upon patient request if the prescription is for a schedule II opioid drug. Glucosamine: 1 capsule, By Mouth, 2 times a day, Maintenance, 05/26/22 19:05:00 EST, Partial fill upon patient request if the prescription is for a schedule II opioid drug. Milk of Magnesia Liquid: 30 mL, By Mouth, 2 times a day, PRN Constipation, 0 Refills, Maintenance, 05/29/22 17:15:00 EST, Suspension, Partial fill upon patient request if the prescription is for a schedule II opioid drug. Multivitamin: 1 tablet, By Mouth, Daily, Maintenance, 05/26/22 19:04:00 EST, Partial fill upon patient request if the prescription is for a schedule II opioid drug. Senna 8.6 mg oral tablet: 8.6 mg, 1, tablet, By Mouth, Daily, Refills 0, Maintenance, 05/29/22 17:15:00 EST, Tablet, Partial fill upon patient request if the prescription is for a schedule II opioid drug. Tylenol 325 mg oral tablet: 650 mg, 2, tablet, By Mouth, Every 6 hours, Refills 0, Maintenance, 05/29/22 17:15:00 EST, Partial fill upon patient request if the prescription is for a schedule II opioid drug. Vitamin C: 1 tablet, By Mouth, Daily, 0 Refills, Maintenance, 05/26/22 9:40:00 EST, Partial fill upon patient request if the prescription is for a schedule II opioid drug. bisacodyl 10 mg rectal suppository: 1 supp = 10 mg, Rectally, Daily, PRN Constipation, 0 Refills, Maintenance, 05/29/22 17:15:00 EST, Suppository, Partial fill upon patient request if the prescription is for a schedule II opioid drug. hydrocortisone 2.5% topical cream: USE 1 APPLICATION RECTALLY 2 TO 4 TIMES A DAY NEEDED FOR HEMORRHOIDS oxybutynin 10 mg/24 hr oral tablet, extended release: 1 tablet = 10 mg, By Mouth, Daily, # 30 tablet, 0 Refills, Maintenance, 05/25/22 23:08:00 EST, ER Tablet, Partial fill upon patient request if the prescription is for a schedule II opioid drug. Therapies Wound care: Daily dry dressing changes. * Yash MONTIEL, Danelle Comer: PERFORM Event Display: Patient Education/Instruction Authored Date: [id number] Inpatient Adult Discharge Instructions [address] [address] Name: JEWELL GUERRIER : 1945 Visit: 05/25/2022 22:36:00 Current Date: 05/30/2022 09:57 Account: [id number] Inpatient Adult Discharge Instructions We would like [...] and their families. Surveys are administered by [employer] ?? If further treatment with your primary care physician or another doctor is recommended, it is important for you to keep the appointment. Call your primary care physician or return to the Emergency Department immediately if your condition worsens, fails to improve, or new symptoms develop. If you need to find a doctor, you can call [facility] [employer] for a referral at [phone] or toll free at [phone]) or log in to [email or web address].. ?? You can view and manage your care through the patient portal or by using a health care morris of your choosing. [employer] is a website that allows you to securely view your medical information including your hospital discharge summary, office visit summaries, medications and follow-up visits. You can also request appointments, renew medications, and request access to your medical information using a health care morris of your choosing, or just ask a question. You can enroll at [email or web address] or register during your next office visit. You have been discharged from [facility], Patient Care Unit: SW6. If you have any questions regarding these instructions after you leave, please call us and we will be happy to assist you. [facility] Your Care Team Attending Physician Osvaldo FLYNN, Arnulfo Brooks Consulting Providers Jacob FLYNN, Daniel Rodriguez; Benny FLYNN, Kasandra; Osvaldo FLYNN, Arnulfo Brooks; Scar CASTAÑEDA, Zara Meng Discharging Providers Sarah Mcgarry Reason for Admission Pt. comes from home w/ taking out the trash and her leg gave out she fell on the right side. Your Diagnosis Femur fracture Overactive bladder Preop examination Periprosthetic fracture around internal prosthetic right knee joint Fracture of femoral shaft, right, closed Acute blood loss as cause of postoperative anemia Tests Performed Below is a partial list of the tests performed during your hospitalization. You may have had other tests and procedures not included in this list. Please discuss all test results with your provider. Basic Metabolic Panel BUN Calcium Level CBC CBC w/ Differential COVID-19 (2019 Novel Coronavirus) PCR COVID-19 (NOVEL CORONAVIRUS), PCR Creatinine Electrolytes Glucose Level H + H Hepatic Function Panel High??Sensitivity??Troponin T HOLD BLUE TUBE CT Cervical Spine W/O Contrast CT Head/Brain W/O Contrast XR C-Arm > 1 Hour XR Chest Single Frontal View XR Femur 2 Views Right XR Pelvis 1 or 2 Views Primary Care Provider Ari FLYNN , Luann Mace Advance Directive Health Care Proxy on File Yes - Health Care Proxy No qualifying data available. Discharge Vitals Temperature: 99.7 DegF Height: 164 cm Pulse Rate:??105 bpm??High Weight: 63.5 kg Respiratory Rate: 18 br/min Body Mass Index: 23.61 kg/m2 Systolic Blood Pressure: 115 mm Hg Body surface area: 1.7 Diastolic Blood Pressure:??50 mm Hg??Low ?? Oxygen Saturation: 94 % ?? Studies Pending All tests and labs ordered during this hospital stay have been completed unless listed below. Please discuss all pending results with your provider listed above in these instructions. ?? BUN CBC Calcium Level Creatinine Electrolytes Glucose Level Hold Lavender Tube (BB) Type and Screen Type and Screen, Use Hold Lavender Urinalysis w/hold for Urine Culture What to do next Instructions From Your Doctor Please contact Dr. Riley's??office with any further questions or concerns regarding your injury orsurgery. Please take a laxative or stool softener, such as colace or milk of magnesia, as needed for constipation. Elevate operative extremity to reduce swelling; keep bandage clean and dry If any fever, chills, uncontrolled pain, or any other issues you feel may be urgent, do present, consult your physician and/or return to the Emergency Room. You may resume your home medications as prescribed by your PCP You??will need to continue lovenox injections for DVT prophylaxis (to prevent blood clots) for at least 4 weeks or until instructed otherwise by your surgeon. Please do not take any NSAID's, Ibuprofen, Toradol, Disalcid, or Salicylates unless specifically cleared with your Surgeon (delays bone healing) (aspirin OK) NO EXCEPTIONS Continue touchdown weightbearing??right leg??for 3 months or??until??advanced in the office.?? Continue daily dry dressing changes.?? Dressings may be removed for showering and incisions can getwet. ??Pat dry after showering. No swimming, tub baths or soaking leg until gregory/splint removed and incisions fully healed. Discharge Orders You Need to Schedule the Following Appointments Follow Up with??Osvaldo FLYNN, Arnulfo Brooks When??Within 2 to 3 weeks Why: Please call to confirm follow up appointment Where: [address] [place] [address] [facility] [address] Business (1) Discharge Medications JEWELL GUERRIER :1945 Visit Date:05/25/2022 Medications: Please continue your medications until treatment is completed or stopped by your provider. Medications not listed below should be discontinued. Discuss any questions related to medications with your provider. What How Much When Instructions Next Dose New Bisacodyl (bisacodyl 10 mg rectal suppository) 1 suppository(ies) Per rectum Daily as needed for Constipation take as directed New Enoxaparin 40 Milligram Subcutaneous Injection Daily next dose due 05/31 at 9am New Milk of Magnesia (Milk of Magnesia Liquid) 30 Milliliter Oral Twice a day as needed for Constipation take as directed New Oxycodone (oxyCODONE 5 mg oral tablet) 1 tab(s) Oral Every 4 hours as needed for Pain , Moderate Duration: 3 Days Printed Prescription take as directed New Senna (Senna 8.6 mg oral tablet) 1 tab(s) Oral Daily next dose due 05/31 at 9am Changed Acetaminophen (Tylenol 325 mg oral tablet) 2 tab(s) Oral Every 6 hours take as directed Changed Ascorbic Acid (Vitamin C) 1 tab(s) Oral Daily next dose due 05/31 at 9am Changed Cholecalciferol 1 capsule Oral Daily next dose due 05/31 at 9am Changed Hydrocortisone Topical (hydrocortisone 2.5% topical cream) USE 1 APPLICATION RECTALLY 2 TO 4 TIMES A DAY NEEDED FOR HEMORRHOIDS ?? take as directed Changed Oxybutynin (oxybutynin 10 mg/ 24 hr oral tablet, extended release) 1 tab(s) Oral Daily next dose due 05/31 at 9am Unchanged Glucosamine 1 capsule Oral Twice a day next dose due 05/30 at 9pm Unchanged Miscellaneous Rx (Allergy Med) 1 tab(s) Oral Daily Unchanged Multivitamin 1 tab(s) Oral Daily next dose due 05/31 at 9am ?? What How Much When Comments Stop Taking ascorbic acid/ chondroitin/ glucosa/ contreras (Glucosamine Chondroitin) 1500mg 1 tablet Oral Twice a day Stop Taking Calcium And Vitamin D Combination (Calcium Citrate 315 mg + Vitamin D 250IU Tablet) 315 Milligram Oral Every 6 hours Stop Taking Melatonin Daily at Bedtime Stop Taking Meloxicam (meloxicam 7.5 mg oral tablet) 1 tab(s) Oral Daily Stop Taking Multivitamin With Minerals (Centrum Silver Ultra Women's) 1 tab(s) Oral Daily Stop Taking Polyethylene Glycol 3350 (MiraLax Powder) 17 gram Oral Daily Stop Taking Tramadol (traMADol 50 mg oral tablet) 1 tab(s) Oral Every 12 hours as needed for as needed for pain Test Results Below is a partial list of the most recent Laboratory test results done prior to this discharge. You may have had other tests and procedures not included in this list. Please discuss all test resultswith your provider. Antibody Screen - Negative (05/30/2022) Blood Type - O Positive (05/30/2022) Basic Metabolic Panel (05/25/2022) ???Sodium - 141 mmol/L???Potassium - 4.0 mmol/L???Chloride - 103 mmol/L???Bicarbonate Level - 26 mmol/L???Anion Gap - 12???Glucose Level - 119 mg/dL???BUN - 17 mg/dL???Creatinine-Blood - 0.4 mg/dL???Estimated GFR Creatinine - 100 ML/MIN/1.73 M2???Calcium - 10.4 mg/dL BUN (05/28/2022) ???BUN - 11 mg/dL Calcium Level (05/27/2022) ???Calcium - 9.6 mg/dL CBC (05/30/2022) ???WBC - 9.5 k/mm3???RBC - 2.32 m/mm3???Hgb - 7.3 Gm/dL???Hct - 22.5 %???MCV - 97.0 femtoliters???MCH - 31.5 pg???MCHC - 32.4 g/dL???Platelet Count - 260 k/mm3???RDW-SD - 47.1 femtoliters???MPV - 10.5 femtoliters???Nucleated RBC (Automated) - 0.0 #/100 WBC'S???Abs. NRBC - 0.0 k/mm3 CBC w/ Differential (05/25/2022) ???WBC - 8.5 k/mm3???RBC - 4.24 m/mm3???Hgb - 13.4 Gm/dL???Hct - 40.6 %???MCV - 95.8 femtoliters???MCH - 31.6 pg???MCHC - 33.0 g/dL???Platelet Count - 328 k/mm3???RDW-SD - 47.2 femtoliters???MPV - 9.6 femtoliters???Nucleated RBC (Automated) - 0.0 #/100 WBC'S???Abs. NRBC - 0.0 k/mm3???Abs. Neut - 6.2 k/mm3???Abs. Lymph - 1.6 k/mm3???Abs. Dawson - 0.6 k/mm3???Abs. Eo - 0.1 k/mm3???Abs. Baso - 0.1 k/mm3???Neut % - 72.1 %???Lymph % - 18.8 %???Dawson % - 6.8 %???Eos % - 0.6 %???Baso % - 1.1 %???Imm Gran- 0.6 %???Abs. Imm Gran - 0.1 k/mm3 COVID-19 (2019 Novel Coronavirus) PCR (05/29/2022) ???COVID-19 PCR Specimen Source - NASAL???COVID-19 PCR Result - NEGATIVE COVID-19 (NOVEL CORONAVIRUS), PCR (05/25/2022) ???COVID-19 by RT-PCR - NEGATIVE Creatinine (05/28/2022) ???Creatinine-Blood - 0.5 mg/dL???Estimated GFR Creatinine - 96 ML/MIN/1.73 M2 Electrolytes (05/28/2022) ???Sodium - 138 mmol/L???Potassium - 4.5 mmol/L???Chloride - 100 mmol/L???Bicarbonate Level - 30 mmol/L???Anion Gap - 8 Glucose Level (05/28/2022) ???Glucose Level - 112 mg/dL H + H (05/30/2022) ???Hgb - 8.2 Gm/dL???Hct - 25.4 % Hepatic Function Panel (05/25/2022) ???Protein, Total - 6.4 Gm/dL???Albumin - 4.4 Gm/dL???Alkaline Phosphatase - 117 units/L???AST (SGOT) - 19 units/L? ?ALT (SGPT) - 21 units/L? ?Bilirubin, Total - 0.5 mg/dL? ?Bilirubin, Direct - <0.2 mg/dL???Bilirubin, Indirect - Direct bilirubin is less than the measureable limit. Therefore, indirect High??Sensitivity??Troponin T (05/25/2022) ???High Sensitivity Troponin (HSTnT) - 13 ng/L HOLD BLUE TUBE (05/25/2022) ???Hold Blue Top - SPECIMEN DISCARDED AFTER 4 HOURS. Allergies (NKA means No Known Allergies) NKA Problems No qualifying data available Education Materials Below is the list of Educational Leaflet Providered with your Discharge Instructions. Valuables and Belongings I fully understand and agree that [facility] accepts no responsibility for all my [...] Review of Valuable and Belonging List: With patient, With witness Possessions released to: glasses returned to unit Date for Pt to Sign Valuables/Belongings: 05/27/22 09:17:00 ?? Valuables & Belongings ?? Clothes Electronic devices Jewelry Monetary Items Personal devices Miscellaneous Medications (Valuables) Valuables at Bedside Shoes, Undergarments, Other: 2 sweater Cell phone, Other: auto garage attendant ? Dentures, full, Glasses ? Valuables Sent Home ? Valuables Sent to Security ? Other Discharge Information ? Case Management Discharge Plan?? Discharge Plan?? Discharge Agency Information?? Discharge Level of Care at Discharge: residential facility Name of Person Notified of Transfer: Pt given DC Plan and IMM at bedside. Discharge Transportation Arranged: [facility] [address] [facility] [address] [phone] ?? Mode of Transportation Arranged: Ambulance ?? Discharge Arranged Transport Date/Time: 05/30/22 11:00:00 ?? Discharge Nursing Homes/Rehab Facilities: [facility] ? Pulmonary Rehab Status?? Pulmonary Rehab Discharge Status?? Respiratory Rate: 18 br/min ? Common Emergency Awareness Tips IS [...] are strongly encouraged to quit. Please call [facility] at [phone] or [phone] ([phone]) or log in to [email or web address] for referrals to smoking cessation programs. ?? The National Suicide Prevention Hotline is available 05/01 if you or someone you know needs to find a reason to keep living. By calling 5-865-989-[employer] (7028) you'll be connected to a skilled, trained counselor at a crisis center in your area. INPATIENT DISCHARGE INSTRUCTIONS SIGNATURE PAGE NELIGRETTA ROPERNE Location:[facility] Registration Date and Time:05/25/2022 22:36 EST Primary Care Physician: Ari FLYNN , Luann Mace, I JEWELL GUERRIER, have received the above patient education materials/instructions and have verbalized understanding. If ambulance or transport services are being used I further acknowledge being given a choice of service. ?? If you need to contact me, please call me at this number: . Patient/Grading Clerk Name: Patient/Grading Clerk Signature: Relationship to Patient: Witness Name/Signature: Date: * Lois Nuno: PERFORM, SIGN, VERIFY Event Display: Case Management Discharge Plan Authored Date: [id number] Patient: JEWELL GUERRIER Age: 77 years Sex: Female : 1945 Associated Diagnoses: None Author: Lois Nuno Discharge Plan Case Management Discharge Plan : Case Management Discharge Plan Data 05/29/2022 14:21 EST Discharge Level of Care at Discharge residential facility Discharge [facility]ranged [facility] [address] [facility] [address] [phone] Discharge Arranged Transport Date/Time 05/30/2022 11:00 Mode of Transportation Arranged Ambulance Name of Person Notified of Transfer Pt given DC Plan and IMM at bedside. * BHSPowerscriXIOMARA ayala S: TRANSCLEILANI Hinson MD, Darren Comer: VERIFY Event Display: Result: Authored Date: [id number] Femur 2 Views Right, C-Arm > 1 Hour INDICATION: Reason: Right hip hardware removal and interan COMPARISONS: None TECHNIQUE: Fluoroscopy support was provided. There was no radiologist in attendance. FLUOROSCOPY TIME: 116.7 seconds EXPOSURE: 21.44 mGy (reference air kerma) TECHNOLOGIST TIME: 1 hour 45 minutes FINDINGS: Intraoperative images obtained during right hip ORIF with a long intramedullary imani and proximal interlocking transcervical screw as well as 2 distal interlocking screws. No evidence of hardware complication. Right knee arthroplasty is noted. IMPRESSION: See above. WSN: [id number] Ordering Physician: Arnulfo Riley Dictated By: Darren Hinson MD Dictated Date/Time: 05/27/22 2:01 pm Reviewed By: Darren Hinson MD Signed By: Darren Hinson MD Signed Date/Time: 05/27/22 2:01 pm Transcribed By: DEBBIE Transcribed Date/Time: 05/27/22 2:00 pm XR Femur - right 2 Views * Sudheer , CIS S: TRANSCRIDarren Hanks MD: VERIFY Event Display: Result: Authored Date: [id number] Femur 2 Views Right, C-Arm > 1 Hour INDICATION: Reason: Right hip hardware removal and interan COMPARISONS: None TECHNIQUE: Fluoroscopy support was provided. There was no radiologist in attendance. FLUOROSCOPY TIME: 116.7 seconds EXPOSURE: 21.44 mGy (reference air kerma) TECHNOLOGIST TIME: 1 hour 45 minutes FINDINGS: Intraoperative images obtained during right hip ORIF with a long intramedullary imani and proximal interlocking transcervical screw as well as 2 distal interlocking screws. No evidence of hardware complication. Right knee arthroplasty is noted. IMPRESSION: See above. WSN: [id number] Ordering Physician: Arnulfo Riley Dictated By: Darren Hinson MD Dictated Date/Time: 05/27/22 2:01 pm Reviewed By: Darren Hinson MD Signed By: Darren Hinson MD Signed Date/Time: 05/27/22 2:01 pm Transcribed By: DEBBIE Transcribed Date/Time: 05/27/22 2:00 pm * DILLONSPoweramaya , CIS S: TRANSCRIBE Timothy Timmons MD: VERIFY Event Display: Result: Authored Date: [id number] Femur 2 Views Right, Pelvis 1 or 2 Views INDICATION: Hx of Present Illness: Pt. comes in after falling at home landing on her right leg, right leg is rotated outward, pulses present warmth and sensation felt. 10 10 sharp pain in her right leg. A Ox3 VSS; Reason: Pain; Clinical Question(s): Fracture Fracture TECHNIQUE: AP view of the pelvis along with AP and lateral projections of the right femur. COMPARISON: X-ray 06/22/2021 FINDINGS: No pelvic or pubic bone fracture. No hip fracture or dislocation. The patient has undergone a remote ORIF of a distal femoral shaft fracture with sideplate and numerous pins. The patient is also undergone a total knee arthroplasty. There is a angulated displaced fracture extending through the proximal right femoral shaft just below the superior and of the sideplate. The most proximal ORIF screw is fractured. No periprosthetic fracture towards the knee arthroplasty. IMPRESSION: Status post ORIF distal femoral shaft fracture with microplate and screws. There is a displaced transverse fracture extending through the proximal femoral shaft just below the superior and of the ORIF hardware. The superiormost ORIF screw is fractured. No pelvic or hip fracture. WSN: [id number] Ordering Physician: Ron Capone Dictated By: Timothy Timmons MD Dictated Date/Time: 05/25/22 9:04 pm Reviewed By: Timothy Timmons MD Signed By: Timothy Timmons MD Signed Date/Time: 05/25/22 9:04 pm Transcribed By: DEBBIE Transcribed Date/Time: 05/25/22 9:[address] Cervical spine WO contrast * BHSPowerscribe , CIS S: TRANSCRIBE Maya Euceda MD: VERIFY Zach Cabrales MD: SIGN Event Display: Result: Authored Date: [id number] CT Head/Brain W/O Contrast, CT Cervical Spine W/O Contrast INDICATION: Fall, concern for head trauma. TECHNIQUE: Noncontrast head CT using axial technique was reconstructed in axial and coronal planes.Noncontrast spiral CT through the cervical spine was formatted in 3 planes. Automatic tube modulation was used for the cervical spine and iterative dose reconstruction was used for both the head and cervical spine to optimize scan parameters and image quality. CTDIvol Body: 23.26 mGy, DLP Body: 554 mGy*cm. CTDIvol Head: 39.82 mGy, DLP Head: 637 mGy*cm. COMPARISON: None. FINDINGS: Chemical Worker View Findings, Lines and Tubes: None. BRAIN [...] sinuses and mastoid air cells are clear. Visualized orbits and globes are intact. The extracranial soft tissues are unremarkable. CERVICAL SPINE: No fracture. No acute osseous abnormalities. Moderate multilevel degenerative disc space narrowing and end plate irregularity. Minimal retrolisthesis of C5 on C6. OTHER BONES: No acute abnormality. CERVICAL SOFT TISSUES AND LUNG APICES: Normal soft tissues. Visualized lung apices are clear. IMPRESSION: No acute abnormality of the head or cervical spine. I have personally reviewed the images and I agree with this report. WSN: [id number] Ordering Physician: Ron Capone Dictated By: Zach Cabrales MD Dictated Date/Time: 05/25/22 7:50 pm Reviewed By: Maya Euceda MD Signed By: Maya Euceda MD Signed Date/Time: 05/25/22 7:55 pm Transcribed By: DEBBIE Transcribed Date/Time: 05/25/22 7:[address] Head WO contrast * BHSPowerscribe , CIS S: TRANSCRIBE Maya Euceda MD: VERIFY Zach Cabrales MD: SIGN Event Display: Result: Authored Date: [id number] CT Head/Brain W/O Contrast, CT Cervical Spine W/O Contrast INDICATION: Fall, concern for head trauma. TECHNIQUE: Noncontrast head CT using axial technique was reconstructed in axial and coronal planes.Noncontrast spiral CT through the cervical spine was formatted in 3 planes. Automatic tube modulation was used for the cervical spine and iterative dose reconstruction was used for both the head and cervical spine to optimize scan parameters and image quality. CTDIvol Body: 23.26 mGy, DLP Body: 554 mGy*cm. CTDIvol Head: 39.82 mGy, DLP Head: 637 mGy*cm. COMPARISON: None. FINDINGS: Chemical Worker View Findings, Lines and Tubes: None. BRAIN [...] sinuses and mastoid air cells are clear. Visualized orbits and globes are intact. The extracranial soft tissues are unremarkable. CERVICAL SPINE: No fracture. No acute osseous abnormalities. Moderate multilevel degenerative disc space narrowing and end plate irregularity. Minimal retrolisthesis of C5 on C6. OTHER BONES: No acute abnormality. CERVICAL SOFT TISSUES AND LUNG APICES: Normal soft tissues. Visualized lung apices are clear. IMPRESSION: No acute abnormality of the head or cervical spine. I have personally reviewed the images and I agree with this report. WSN: [id number] Ordering Physician: Ron Capone Dictated By: Zach Cabrales MD Dictated Date/Time: 05/25/22 7:50 pm Reviewed By: Maya Euceda MD Signed By: Maya Euceda MD Signed Date/Time: 05/25/22 7:55 pm Transcribed By: DEBBIE Transcribed Date/Time: 05/25/22 7:43 pm XR Chest AP * BHSPowerscribe , CIS S: TRANSCRITimothy Culp MD: VERIFY Event Display: Result: Authored Date: Chest Single Frontal View Hx of Present Illness: Pt. comes in after falling at home landing on her right leg, right leg is rotated outward, pulses present warmth and sensation felt. 10 10 sharp pain in her right leg. A Ox3 VSS; Reason: Preop; Clinical Question(s): Pneumonia COMPARISON: None. FINDINGS: LINES AND TUBES: None. LUNGS AND PLEURA: Clear lungs. Normal pulmonary vascularity. No pleural effusion. No pneumothorax. HEART, MEDIASTINUM AND LESLIE: Mild prominence of the cardiac silhouette. Normal mediastinal and hilar contour. BONES AND SOFT TISSUES: No acute abnormality. Moderate to severe arthritic changes of both shoulder joints. IMPRESSION: No acute abnormality. WSN: [id number] Ordering Physician: Ron Capone Dictated By: Timothy Timmons MD Dictated Date/Time: 05/25/22 9:00 pm Reviewed By: Timothy Timmons MD Signed By: Timothy Timmons MD Signed Date/Time: 05/25/22 9:00 pm Transcribed By: DEBBIE Transcribed Date/Time: 05/25/22 9:00 pm XR Pelvis 1 or 2 Views * BHSPowerscribe , CIS S: TRANSCRIBE Timothy Timmons MD: VERIFY Event Display: Result: Authored Date: [id number] Femur 2 Views Right, Pelvis 1 or 2 Views INDICATION: Hx of Present Illness: Pt. comes in after falling at home landing on her right leg, right leg is rotated outward, pulses present warmth and sensation felt. 10 10 sharp pain in her right leg. A Ox3 VSS; Reason: Pain; Clinical Question(s): Fracture Fracture TECHNIQUE: AP view of the pelvis along with AP and lateral projections of the right femur. COMPARISON: X-ray 06/22/2021 FINDINGS: No pelvic or pubic bone fracture. No hip fracture or dislocation. The patient has undergone a remote ORIF of a distal femoral shaft fracture with sideplate and numerous pins. The patient is also undergone a total knee arthroplasty. There is a angulated displaced fracture extending through the proximal right femoral shaft just below the superior and of the sideplate. The most proximal ORIF screw is fractured. No periprosthetic fracture towards the knee arthroplasty. IMPRESSION: Status post ORIF distal femoral shaft fracture with microplate and screws. There is a displaced transverse fracture extending through the proximal femoral shaft just below the superior and of the ORIF hardware. The superiormost ORIF screw is fractured. No pelvic or hip fracture. WSN: [id number] Ordering Physician: Ron Capone Dictated By: Timothy Timmons MD Dictated Date/Time: 05/25/22 9:04 pm Reviewed By: Timothy Timmons MD Signed By: Timothy Timmons MD Signed Date/Time: 05/25/22 9:04 pm Transcribed By: DEBBIE Transcribed Date/Time: 05/25/22 9:02 pm Patient Care team information Care Team Personnel Name: Madina Bliss RN Position: [facility] RN Member Role: Primary Care Nurse Name: Kate Nassar RN Position: [facility] RN Member Role: Primary Care Nurse Name: Willow Blankenship RN Position: [facility] RN Member Role: Primary Care Nurse Name: Luann Chapman MD Position: Reference Physician Member Role: PCP Address: Address: [address] [place] [address]- Name: Marcelle Meade RN Position: [facility] RN Member Role: Primary Care Nurse Name: Mayank Quezada RN Position: [facility] RN Member Role: Primary Care Nurse Name: Rony Hong RN Position: [facility] RN Member Role: Primary Care Nurse Name: Araceli Vinson RN Position: [facility] RN Member Role: Primary Care Nurse Name: Maryanne Estrada RN Position: [facility] RN Member Role: Primary Care Nurse Name: Brittany Negron RN Position: [facility] RN Member Role: Primary Care Nurse Name: Letitia VARGAS Attending Position: [facility] ED Medicine MD Name: Ron Capone MD Position: [facility] Resident Member Role: ED Resident Address: Address: [address] [place] [address] [place] [address]- Name: Vivien London Position: [facility] ED TA [facility] Member Role: Fitness Management Director Name: Deepika Hidalgo Position: [facility] ED OA Charge Member Role: ED Associate Name: Mary Kate Luevano RN Position: [facility] ED RN W/OE and Tasks Member Role: Patient Care Provider Care Team Related Persons Name: NELIBRYANT ROPERY Address: [address] [place] [address] Name: ERIC GUERRIER Address: [address] [place] [address]
--- OUTSIDE RECORDS SUMMARY | 2024-03-30 09:55 | XMS_ITS | Continuity of Care Document ---
Author Organization [facility] ter Address [address] [place] [address]- Care Team Providers Care Magnetic Healer Name Role Phone Ari FLYNN, Luann Mace Primary Care Physician Encounter [facility] [place] Date(s): 11/16/20 - 12/16/[address] [address]- Attending Physician: Not on Staff, Attending MD Admitting Physician: Not on Staff, Admitting MD Referring Physician: Not on Staff, Referring MD Allergies, Adverse Reactions, Alerts Substance Reaction [...]
--- OUTSIDE RECORDS SUMMARY | 2024-03-30 09:55 | XMS_ITS | Continuity of Care Document ---
Author Organization [facility] ter Address [address] [place] [id number]- Care Team Providers Care Glass Blowing Lathe Operator Name Role Phone Ari FLYNN, Luann Mace Primary Care Physician Encounter [facility] [place] Date(s): 06/22/21 - 06/22/[address] [address]- Encounter Diagnosis Leg pain(Final) - 06/22/21 Discharge Disposition: A-D/C Home Attending Physician: Braden Gaxiola MD Admitting Physician: Braden Gaxiola MD Referring Physician: Not on Staff, Referring [...] Exam Date Time Procedure Performing Provider Status 06/22/21 5:09 PM Knee 1 or 2 Views Right Elaine Harp; Lida (Verified) Notes: (Knee 1 or 2 Views Right) Reason For Exam: with Pain;Trauma RESULT: Knee 1 or 2 Views Right Pelvis 1 or 2 Views, Femur 2 Views Right, Knee 1 or 2 Views Right Hx of Present Illness: Pt endorses shooting pain from right hip radiating throughout right leg for the past three days S p right knee replacement 04 04. Pain relieved with NSAIDS and Right kneecap isswollen, pt reports chronic swelling. COMPARISON: 12/14/2019. FINDINGS: There is no fracture or dislocation. Previously seen right femoral imani has been removed with screw tracks in the proximal and distal femur. There is bone remodeling in the distal femoral shaft with associated periosteal thickening but no fracture line is visible. Mild to moderate degenerative changes in the lower lumbar spine, sacroiliac joints, and hips. Status post total knee arthroplasty with normal alignment of the hardware. There is small suprapatellar joint effusion and asymmetric thickening of the distal quadriceps tendon near the patellar attachment. There are well-corticated punctate calcific densities adjacent to the inferior patella and diffuse skin thickening in the prepatellar region. There is edema in the Hoffa's fat pad. Moderate stool retention in the visualized colon. IMPRESSION: 1. No evidence of acute osseous abnormality. 2. Irregular appearance of the distal quadriceps tendon. Please correlate with physical examinationfindings to exclude tendon injury. 3. Suprapatellar joint effusion and edema in the Hoffa fat pad. WSN: [id number] Ordering Physician: Princess Osborne Dictated By: Rayshawn Lopez MD Dictated Date/Time: 06/22/21 5:18 pm Reviewed By: Rayshawn Lopez MD Signed By: Rayshawn Lopez MD Signed Date/Time: 06/22/21 5:18 pm Transcribed By: DEBBIE Transcribed Date/Time: 06/22/21 5:11 pm * Exam Date Time Procedure Performing Provider Status 06/22/21 5:09 PM XR Femur 2 Views Right Elaine Harp; Lida (Verified) Notes: (XR Femur 2 Views Right) Reason For Exam: with Pain;Trauma RESULT: Femur 2 Views Right Pelvis 1 or 2 Views, Femur 2 Views Right, Knee 1 or 2 Views Right Hx of Present Illness: Pt endorses shooting pain from right hip radiating throughout right leg for the past three days S p right knee replacement 10 21. Pain relieved with NSAIDS and Right kneecap isswollen, pt reports chronic swelling. COMPARISON: 12/14/2019. FINDINGS: There is no fracture or dislocation. Previously seen right femoral imani has been removed with screw tracks in the proximal and distal femur. There is bone remodeling in the distal femoral shaft with associated periosteal thickening but no fracture line is visible. Mild to moderate degenerative changes in the lower lumbar spine, sacroiliac joints, and hips. Status post total knee arthroplasty with normal alignment of the hardware. There is small suprapatellar joint effusion and asymmetric thickening of the distal quadriceps tendon near the patellar attachment. There are well-corticated punctate calcific densities adjacent to the inferior patella and diffuse skin thickening in the prepatellar region. There is edema in the Hoffa's fat pad. Moderate stool retention in the visualized colon. IMPRESSION: 1. No evidence of acute osseous abnormality. 2. Irregular appearance of the distal quadriceps tendon. Please correlate with physical examinationfindings to exclude tendon injury. 3. Suprapatellar joint effusion and edema in the Hoffa fat pad. WSN: [id number] Ordering Physician: Princess Osborne Dictated By: Rayshawn Lopez MD Dictated Date/Time: 06/22/21 5:18 pm Reviewed By: Rayshawn Lopez MD Signed By: Rayshawn Lopez MD Signed Date/Time: 06/22/21 5:18 pm Transcribed By: DEBBIE Transcribed Date/Time: 06/22/21 5:11 pm * Exam Date Time Procedure Performing Provider Status 06/22/21 5:09 PM Pelvis 1 or 2 Views Antonio Harp (Verified) Notes: (Pelvis 1 or 2 Views) Reason For Exam: With Pain;Trauma RESULT: Pelvis 1 or 2 Views Pelvis 1 or 2 Views, Femur 2 Views Right, Knee 1 or 2 Views Right Hx of Present Illness: Pt endorses shooting pain from right hip radiating throughout right leg for the past three days S p right knee replacement 10 21. Pain relieved with NSAIDS and Right kneecap isswollen, pt reports chronic swelling. COMPARISON: 12/14/2019. FINDINGS: There is no fracture or dislocation. Previously seen right femoral imani has been removed with screw tracks in the proximal and distal femur. There is bone remodeling in the distal femoral shaft with associated periosteal thickening but no fracture line is visible. Mild to moderate degenerative changes in the lower lumbar spine, sacroiliac joints, and hips. Status post total knee arthroplasty with normal alignment of the hardware. There is small suprapatellar joint effusion and asymmetric thickening of the distal quadriceps tendon near the patellar attachment. There are well-corticated punctate calcific densities adjacent to the inferior patella and diffuse skin thickening in the prepatellar region. There is edema in the Hoffa's fat pad. Moderate stool retention in the visualized colon. IMPRESSION: 1. No evidence of acute osseous abnormality. 2. Irregular appearance of the distal quadriceps tendon. Please correlate with physical examinationfindings to exclude tendon injury. 3. Suprapatellar joint effusion and edema in the Hoffa fat pad. WSN: [id number] Ordering Physician: Princess Osborne Dictated By: Rayshawn Lopez MD Dictated Date/Time: 06/22/21 5:18 pm Reviewed By: Rayshawn Lopez MD Signed By: Rayshawn Lopez MD Signed Date/Time: 06/22/21 5:18 pm Transcribed By: DEBBIE Transcribed Date/Time: 06/22/21 5:11 pm Vital Signs Most recent to oldest [Reference Range]: 1 2 3 Height 155 cm (06/22/21 8:15 PM) 155 cm (06/22/21 4:49 PM) 155 cm (06/22/21 1:09 PM) Weight 68 kg (06/22/21 8:15 PM) 68 kg (06/22/21 4:49 PM) 68 kg (06/22/21 1:09 PM) Oxygen Saturation [94-100 %] 96 % (06/22/21 8:15 PM) 95 % (06/22/21 3:04 PM) 98 % (06/22/21 1:09 PM) Pulse Rate [55-90 bpm] 84 bpm (06/22/21 8:15 PM) 83 bpm (06/22/21 3:04 PM) 94 bpm *H* (06/22/21 1:09 PM) Body Mass Index [18.5-24.99] 28.3 *H* (06/22/21 8:15 PM) 28.3 *H* (06/22/21 1:09 PM) Blood Pressure [90-138/55-84 mm Hg] 151/90mm Hg *H* (06/22/21 8:15 PM) 146/73mm Hg *H* (06/22/21 3:04 PM) 151/72mm Hg *H* (06/22/21 1:09 PM) Respiratory Rate [16-30 br/min] 16 br/min (06/22/21 8:15 PM) 14 br/min *L* (06/22/21 3:04 PM) 14 br/min *L* (06/22/21 1:09 PM) Temperature [96.8-100.4 DegF] 98.3 DegF (06/22/21 3:04 PM) 98.7 DegF (06/22/21 1:09 PM) Mode of Delivery (Oxygen) Room air (06/22/21 8:15 PM) Room air (06/22/21 3:04 PM) Room air (06/22/21 1:09 PM) Blood pressure sites Arm, left (06/22/21 8:15 PM) Arm, left (06/22/21 3:04 PM) Arm, left (06/22/21 1:09 PM) Temperature Route Oral (06/22/21 3:04 PM) Oral (06/22/21 1:09 PM) Weight Obtained Via Patient/family state d (06/22/21 1:09 PM) Social History Social History Type Response Smoking Status Former smoker; Other : quit smoking 40 years ago; entered on: 08/11/14 Sex Female
--- OUTSIDE RECORDS SUMMARY | 2024-03-30 09:55 | XMS_ITS | Continuity of Care Document ---
Author Organization [facility] ter Address [address] [place] [address]- Care Team Providers Care Interpreter Deaf Name Role Phone Ari FLYNN, Luann Mace Primary Care Physician [place] [facility] [place] - 08/22/[address] [address]- [facility] Encounter Diagnosis Closed fracture of medial portion of right tibial plateau(Discharge Diagnosis) - 08/19/19 Discharge Disposition: A-Transfer SNF Attending Physician: Aguila Ortiz MD Referring Physician: Aguila Ortiz MD Allergies, Adverse Reactions, Alerts Substance Reaction [...] 10:12:00 EST Start Date: 07/18/19 Status: Ordered oxyCODONE 5 mg oral tablet 5 mg, 1, tablet, By Mouth, Every 4 hours, PRN, for 3 days, # 18 tablet, Refills 0, Tot. Refills 0, Acute 08/25/19 10:25:00 EDT, Pain , Moderate, 08/22/19 10:25:00 EDT, Print Requisition, Partial fillupon patient request Start Date: 08/22/19 Stop Date: 08/25/19 Status: Ordered senna 187 mg oral tablet 2 tablet = 17.2 mg, By Mouth, Daily at bedtime, 0 Refills, Maintenance, 08/22/19 10:26:00 EDT, Tablet Start Date: 08/22/19 Status: Ordered Problem List Diagnosis Diagnosis Type Effective Dates Health Status Cl inical Service Informant Closed fracture of medial portion of right tibial plateau Discharge Diagnosis 08/19/19 Non-Specified Results Radiology Reports * Exam Date Time Procedure Performing Provider Status 08/18/19 4:57 PM C-Arm > 1 Hour Charli Andrews; Lida (Rosie ified) Notes: (C-Arm > 1 Hour) Reason For Exam: Right Femur ORIF Distal RESULT: C-Arm > 1 Hour Femur 2 Views Right, C-Arm > 1 Hour INDICATION: Reason: Right Femur ORIF Distal; Special Instructions: TT 1 hour 40 min, 242 sec COMPARISONS: 08/18/2019 2:54 AM TECHNIQUE: Fluoroscopy support was provided. There was no radiologist in attendance. Fluoroscopy time: 242 seconds Technologist time: 1 hour 40 minutes Exposure: 24.16 mGy FINDINGS: Intraoperative fluoroscopic spot images demonstrate ORIF distal femoral fracture. Please see operative report for complete findings and procedural narrative IMPRESSION: See above. WSN: [id number] Ordering Physician: Aguila Ortiz Dictated By: Luis Angel Payton MD Dictated Date/Time: 08/18/19 5:04 pm Reviewed By: Luis Angel Payton MD Signed By: Luis Angel Payton MD Signed Date/Time: 08/18/19 5:04 pm Transcribed By: DEBBIE Transcribed Date/Time: 08/18/19 5:03 pm * Exam Date Time Procedure Performing Provider Status 08/18/19 4:57 PM XR Femur 2 Views Right Madhuri Andrews cox monett (Verified) Notes: (XR Femur 2 Views Right) Reason For Exam: Right Femur ORIF Distal RESULT: Femur 2 Views Right Femur 2 Views Right, C-Arm > 1 Hour INDICATION: Reason: Right Femur ORIF Distal; Special Instructions: TT 1 hour 40 min, 242 sec COMPARISONS: 08/18/2019 2:54 AM TECHNIQUE: Fluoroscopy support was provided. There was no radiologist in attendance. Fluoroscopy time: 242 seconds Technologist time: 1 hour 40 minutes Exposure: 24.16 mGy FINDINGS: Intraoperative fluoroscopic spot images demonstrate ORIF distal femoral fracture. Please see operative report for complete findings and procedural narrative IMPRESSION: See above. WSN: [id number] Ordering Physician: Aguila Ortiz Dictated By: Luis Angel Payton MD Dictated Date/Time: 08/18/19 5:04 pm Reviewed By: Luis Angel Payton MD Signed By: Luis Angel Payton MD Signed Date/Time: 08/18/19 5:04 pm Transcribed By: DEBBIE Transcribed Date/Time: 08/18/19 5:03 pm * Exam Date Time Procedure Performing Provider Status 08/18/19 3:02 AM XR Femur 2 Views Right Sergio Kingsley (Verified) Notes: (XR Femur 2 Views Right) Reason For Exam: Pain RESULT: Femur 2 Views Right Femur 4 Views Right Reason: Pain; Clinical Question(s): Fracture COMPARISON: None. FINDINGS: Acute comminuted fracture of the distal femur with a full shaft's width posterior displacement of the distal femur and proximally 2 cm of impaction. There is likely intra-articular extension of the fracture line to the femoral intercondylar notch, although evaluation is mildly limited by overlying b andaging. Additionally, there is a mildly comminuted fracture of the medial tibial plateau with approximately2 mm of associated depression (Schatzker IV). The pelvis and hip joint appear unremarkable. Focal swelling and effusion around the fracture. IMPRESSION: 1. Acute, comminuted, impacted fracture of the right distal femur with posterior displacement of the distal fracture fragment by one shaft's width and probable intra-articular extension to the femoral intercondylar notch. 2. Comminuted depressed medial tibial plateau fracture (Schatzker IV). A Red message has been communicated via the [facility] system on 08/18/2019 9:07 AM, Message ID [id number]. I have personally reviewed the images and I agree with this report. WSN: [id number] Ordering Physician: Efren Vasquez Dictated By: Franik Ferrer DO Dictated Date/Time: 08/18/19 9:14 am Reviewed By: Darren Hinson MD Signed By: Darren Hinson MD Signed Date/Time: 08/18/19 9:19 am Transcribed By: DEBBIE Transcribed Date/Time: 08/18/19 9:09 am Vital Signs Most recent to oldest [Reference Range]: 1 2 3 Height 165 cm (08/22/19 7:00 AM) 165 cm (08/22/19 4:01 AM) 165 cm (08/21/19 7:40 PM) Weight 70.5 kg (08/18/19 1:24 PM) 70.5 kg (08/17/19 9:23 PM) Oxygen Saturation [94-100 %] 95 % (08/22/19 7:00 AM) 98 % (08/22/19 4:01 AM) 100 % (08/21/19:40 PM) Pulse Rate [55-90 bpm] 95 bpm *H* (08/22/19 7:00 AM) 104 bpm *H* (08/22/19 4:01 AM) 106 bpm *H* (08/21/19 7:40 PM) Body Mass Index [18.5-24.99] 25.9 *H* (08/18/19 1:24 PM) 25.9 *H* (08/17/19 9:23 PM) Blood Pressure [90-138/55-84 mm Hg] 126/71mm Hg (08/22/19 7:00 AM) 122/62mm Hg (08/22/19 4:01 AM) 128/70mm Hg (08/21/19 7:40 PM) Respiratory Rate [16-30 br/min] 18 br/min (08/22/19 9:01 AM) 18 br/min (08/22/19:20 AM) 18 br/min (08/22/19 7:00 AM) Temperature [96.8-100.4 DegF] 98.6 DegF (08/22/19 7:00 AM) 98.2 DegF (08/22/19 4:01 AM) 97.7 DegF (08/21/19 7:40 PM) Liters per Minute 2 L/min (08/18/19 7:19 PM) 3 L/min (08/18/19 6:15 PM) 2 L/min (08/18/19 5:45 PM) Mode of Delivery (Oxygen) Room air (08/22/19 7:00 AM) Room air (08/22/19 4:01 AM) Room air (08/21/19 7:40 PM) Blood pressure sites Arm, right (08/22/19 7:00 AM) Arm, left (08/21/19 7:23 AM) Arm, left (08/21/19 4:37 AM) Temperature Route Oral (08/22/19 7:00 AM) Oral (08/22/19 4:01 AM) Oral (08/21/19 7:40 PM) Dry Weight 70.5 kg (08/17/19 9:23 PM) Sensory deficits None (08/17/19 9:23 PM) Mobility assistance Independent (08/17/19 9:23 PM) Social History Social History Type Response Smoking Status Former smoker; Other : quit smoking 40 years ago; entered on: 08/11/14 Sex
--- OUTSIDE RECORDS SUMMARY | 2024-03-30 09:55 | XMS_ITS | Continuity of Care Document ---
Author Organization [facility] ter Address [address] [place] [id number]- Care Team Providers Care Coating Machine Operator Helper Name Role Phone Ari FLYNN, Luann Mace Primary Care Physician [place] [facility] [place] 12/14/19 - 12/15/[address] [address]- [facility] Encounter Diagnosis Leg pain(Final) - 12/15/19 Discharge Disposition: A-D/C Home Attending Physician: Clarita Brumfield DO Admitting Physician: Clarita Brumfield DO Referring Physician: Not on Staff, Referring MD [...] EDT, Tablet Start Date: 08/22/19 Status: Ordered Results Radiology Reports * Exam Date Time Procedure Performing Provider Status 12/14/19 10:25 PM Knee 1 or 2 Views Right Charli Andrews; Lida (Verified) Notes: (Knee 1 or 2 Views Right) Reason For Exam: Pain RESULT: Knee 1 or 2 Views Right Femur 2 Views Right, Knee 1 or 2 Views Right, 2 views Refer to EMR; Reason: Pain; Clinical Question(s): Fracture; Hx of Present Illness: Pt had R femur ORIF in August, has had some residual knee pain since, and today felt pop and now has bulge over R thigh just above knee COMPARISON: 08/18/2019 FINDINGS: Status post intramedullary rodding and distal fixation for distal femoral shaft fracture, which extends to the knee articular surface. The fracture demonstrates callus formation consistent with partial healing. No acute fracture identified. Severe degenerative changes in the medial tibiofemoral compartment and at least moderate degenerative changes at the patellofemoral compartment. No joint effusion. Soft tissue prominence along the medial mid thigh. IMPRESSION: 1. Status post open reduction internal fixation for distal femoral shaft fracture, which demonstrates extension to the knee joint. There is partial healing without evidence of acute fracture. 2. Possible soft tissue prominence of the medial mid thigh possibly representing hematoma. WSN: [id number] Ordering Physician: Antonio Jarvis Dictated By: Torres Hurtado DO Dictated Date/Time: 12/14/19 10:39 p Reviewed By: Torres Hurtado DO Signed By: Torres Hurtado DO Signed Date/Time: 12/14/19 10:39 pm Transcribed By: DEBBIE Transcribed Date/Time: 12/14/19 10:35 pm * Exam Date Time Procedure Performing Provider Status 12/14/19 10:25 PM XR Femur 2 Views Right Madhuri Andrews (Verified) Notes: (XR Femur 2 Views Right) Reason For Exam: Pain RESULT: Femur 2 Views Right Femur 2 Views Right, Knee 1 or 2 Views Right, 2 views Refer to EMR; Reason: Pain; Clinical Question(s): Fracture; Hx of Present Illness: Pt had R femur ORIF in August, has had some residual knee pain since, and today felt pop and now has bulge over R thigh just above knee COMPARISON: 08/18/2019 FINDINGS: Status post intramedullary rodding and distal fixation for distal femoral shaft fracture, which extends to the knee articular surface. The fracture demonstrates callus formation consistent with partial healing. No acute fracture identified. Severe degenerative changes in the medial tibiofemoral compartment and at least moderate degenerative changes at the patellofemoral compartment. No joint effusion. Soft tissue prominence along the medial mid thigh. IMPRESSION: 1. Status post open reduction internal fixation for distal femoral shaft fracture, which demonstrates extension to the knee joint. There is partial healing without evidence of acute fracture. 2. Possible soft tissue prominence of the medial mid thigh possibly representing hematoma. WSN: [id number] Ordering Physician: Antonio Jarvis Dictated By: Torres Hurtado DO Dictated Date/Time: 12/14/19 10:39 p Reviewed By: Torres Hurtado DO Signed By: Torres Hurtado DO Signed Date/Time: 12/14/19 10:39 pm Transcribed By: DEBBIE Transcribed Date/Time: 12/14/19 10:35 pm Vital Signs Most recent to oldest [Reference Range]: 1 2 3 Oxygen Saturation [94-100 %] 98 % (12/15/19 9:34 AM) 99 % (12/15/19 4:42 AM) 99 % (12/14/19 11:52 PM) Pulse Rate [55-90 bpm] 88 bpm (12/15/19 9:34 AM) 93 bpm *H* (12/15/19 4:42 AM) 86 bpm (12/14/19 11:52 PM) Blood Pressure [90-138/55-84 mm Hg] 135/67mm Hg (7/2/20 9:34 AM) 141/100mm Hg *H* (12/15/19 4:42 AM) 139/70mm Hg *H* (12/14/19 11:52 PM) Respiratory Rate [16-30 br/min] 16 br/min (12/15/19 9:34 AM) 18 br/min (12/15/19 4:42 AM) 16 br/min (12/14/19 11:52 PM) Temperature [96.8-100.4 DegF] 98.5 DegF (12/15/19 9:34 AM) 98.4 DegF (12/15/19 4:42 AM) 98.3 DegF (12/14/19 11:52 PM) Mode of Delivery (Oxygen) Room air (12/15/19 9:34 AM) Room air (12/15/19 4:42 AM) Room air (12/14/19 11:52 PM) Blood pressure sites Arm, right (12/15/19 9:34 AM) Arm, right (12/15/19 4:42 AM) Arm, right (12/14/19 11:52 PM) Temperature Route Oral (12/15/19 9:34 AM) Oral (12/15/19 4:42 AM) Oral (12/14/19 11:52 PM) Social History Social History Type Response Smoking Status Former smoker; Other : quit smoking 40 years ago; entered on: 08/11/14 Sex Female
--- OUTSIDE RECORDS SUMMARY | 2024-03-30 09:55 | XMS_ITS | Continuity of Care Document ---
Author Organization [facility] Address [address] [place] [address]- Care Team Providers Care Baker Biscuit Name Role Phone Ari FLYNN, Luann Mace Primary Care Physician Encounter [facility] [place] Date(s): 07/16/23 - 09/27/23 [facility] [address] [place] [address]- Attending Physician: Saray ENCISO, Collette Admitting Physician: Saray ENCISO, Collette Allergies, Adverse Reactions, Alerts No Known Allergies [...] Care Nurse Name: Kate Nassar RN Position: [facility] RN Member Role: Primary Care Nurse Name: Willow Blankenship RN Position: S RN Member Role: Primary Care Nurse Name: Oscar Dhillon RN Position: S RN Member Role: Primary Care Nurse Name: Luann Chapman MD Position: Reference Physician Member Role: PCP Address: Address: [facility] [address] Name: Mayank Quezada RN Position: S [...] Related Persons Name: KATE GUERRIER Address: home [address] [place] [id number] Name: ERIC GUERRIER Address: home [address] [place] [address]
--- OUTSIDE RECORDS SUMMARY | 2024-03-30 09:55 | XMS_ITS | Continuity of Care Document ---
Author Organization [facility] ter Address [address] [place] [address]- Care Team Providers Care Recording Studio Setup Worker Name Role Phone Ari FLYNN, Luann Mace Primary Care Physician [place] [facility] [place] 03/26/21 - 04/25/[address] [address]- Attending Physician: Wilmar Chambers Admitting Physician: Wilmar [...]
--- OUTSIDE RECORDS SUMMARY | 2024-03-30 09:55 | XMS_ITS | Continuity of Care Document ---
Author Organization [facility] ter Address [address] [place] [address]- Care Team Providers Care Entertainer Or Variety Artist Name Role Phone Ari FLYNN, Luann Mace Primary Care Physician [place] [facility] [place]/16/[address] [address] Encounter Diagnosis Pain due to internal orthopedic prosthetic devices, implants and grafts, initial encounter(Discharge Diagnosis) - 11/15/20 Discharge Disposition: A-Transfer VNA/Home Health Attending Physician: Arnulfo Riley MD Admitting Physician: Arnulfo Riley MD Referring Physician: Arnulfo Riley MD Allergies, Adverse Reactions, Alerts Substance Reaction [...] EDT, Tablet Start Date: 08/22/19 Status: Ordered enoxaparin 40 mg/0.4 mL injectable solution 0.4 mL = 40 mg, Subcutaneous Injection, Every 24 hours, for 14 days, # 5.6 mL, 0 Refills, Acute 11/30/20 9:44:00 EDT, 11/16/20 9:44:00 EDT, Injection, [facility], Partial fill upon patient request if the prescription is for a schedule II... Start Date: 11/16/20 Stop Date: 11/30/20 Status: Ordered ipratropium nasal (OP) 3 times [...] hours, PRN for Pain , Moderate, Routine, 11/14/20 11:43:00 EDT Start Date: 11/14/20 Stop Date: 11/16/20 Status: Discontinued oxyCODONE 5 mg oral tablet 10 mg, Tablet, By Mouth, Every 4 hours, PRN for Pain , Severe, Routine, 11/15/20 20:58:00 EDT Start Date: 11/15/20 Stop Date: 11/16/20 Status: Discontinued oxyCODONE 5 mg oral tablet See Instructions, PRN, 1-2 tablet By Mouth Every 4-6 hours as needed for moderate to severe pain, #40 tablet, Refills 0, Tot. Refills 0, Acute 11/23/20 9:45:00 EDT, Pain , Moderate, 11/16/20 9:44:00EDT, Instructions Replace Required Details, Route t... Start Date: 11/16/20 Stop Date: 11/23/20 Status: Ordered Tylenol 325 mg oral tablet 975 mg, Tablet, By Mouth, 11/16/20 9:00:00 EDT Start Date: 11/16/20 Stop Date: 11/16/20 Status: Completed Vitamin C 500 mg oral tablet 1 [...] opioid drug. Start Date: 11/02/20 Status: Ordered Problem List Diagnosis Diagnosis Type Effective Dates Health Status Clinical Service Informant Pain due to internal orthopedic prosthetic devices, implants and grafts, initial encounter 1 Discharge Diagnosis 11/15/20 Non-Specified 28/08/2020 15:37 EDT - Sarah Mcgarry Right femur fracture with painful hardware Results Radiology Reports * Exam Date Time Procedure Performing Provider Status 11/14/20 11:18 AM C-Arm > 1 Hour Kathryn Crouch; Lida (Verified) Notes: (C-Arm > 1 Hour) Reason For Exam: right femur hardware removal RESULT: C-Arm > 1 Hour Femur 2 Views Right, C-Arm > 1 Hour, views Reason: right femur hardware removal; Special Instructions: TT 1 hour 5min, FT 37.2sec, 5.24mGy COMPARISON: None. FINDINGS: 4 intraoperative fluoroscopic spot images submitted during femoral hardware removal. IMPRESSION: See above WSN: [id number] Ordering Physician: Arnulfo Riley Dictated By: Luis Angel Harris MD Dictated Date/Time: 11/14/20 4:30 pm Reviewed By: Luis Angel Harris MD Signed By: Luis Angel Harris MD Signed Date/Time: 11/14/20 4:30 pm Transcribed By: DEBBIE Transcribed Date/Time: 11/14/20 4:29 pm * Exam Date Time Procedure Performing Provider Status 11/14/20 11:18 AM XR Femur 2 Views Right Helen Crouch (Verified) Notes: (XR Femur 2 Views Right) Reason For Exam: right femur hardware removal RESULT: Femur 2 Views Right Femur 2 Views Right, C-Arm > 1 Hour, views Reason: right femur hardware removal; Special Instructions: TT 1 hour 5min, FT 37.2sec, 5.24mGy COMPARISON: None. FINDINGS: 4 intraoperative fluoroscopic spot images submitted during femoral hardware removal. IMPRESSION: See above WSN: [id number] Ordering Physician: Arnulfo Riley Dictated By: Luis Angel Harris MD Dictated Date/Time: 11/14/20 4:30 pm Reviewed By: Luis Angel Harris MD Signed By: Luis Angel Harris MD Signed Date/Time: 11/14/20 4:30 pm Transcribed By: DEBBIE Transcribed Date/Time: 11/14/20 4:29 pm Vital Signs Most recent to oldest [Reference Range]: 1 2 3 Height 155 cm (11/16/20 7:03 AM) 155 cm (11/15/20 7:12 PM) 155 cm (11/15/20 4:02 PM) Weight 76.5 kg (11/14/20 8:40 AM) 77.5 kg (11/02/20 2:40 PM) Oxygen Saturation [94-100 %] 95 % (11/16/20 7:03 AM) 95 % (11/16/20 4:00 AM) 93 % *L* (11/15/20 11:00 PM) Pulse Rate [55-90 bpm] 105 bpm *H* (11/16/20 7:03 AM) 90 bpm (11/16/20 4:00 AM) 92 bpm *H* (11/15/20 11:00 PM) Body Mass Index [18.5-24.99] 31.84 *>HHI* (11/14/20 8:40 AM) 32.26 *>HHI* (11/02/20 2:40 PM) Blood Pressure [90-138/55-84 mm Hg] 139/62mm Hg *H* (11/16/20 7:03 AM) 110/60mm Hg (11/16/20 4:00 AM) 124/51mm Hg (11/15/20 11:00 PM) Respiratory Rate [16-30 br/min] 16 br/min (11/16/20 10:57 AM) 16 br/min (11/16/20 9:03 AM) 16 br/min (11/16/20 7:19 AM) Temperature [96.8-100.4 DegF] 98.7 DegF (11/16/20 7:03 AM) 98.5 DegF (11/16/20 4:00 AM) 98.8 DegF (11/15/20 11:00 PM) Liters per Minute 2 L/min (11/14/20 6:17 PM) 2 L/min (11/14/20 3:20 PM) 3 L/min (11/14/20 2:30 PM) Mode of Delivery (Oxygen) Room air (11/16/20 7:03 AM) Room air (11/16/20 4:00 AM) Room air (11/15/20 11:00 PM) Blood pressure sites Arm, left (11/16/20 7:03 AM) Arm, right (11/16/20 4:00 AM) Arm, right (11/15/20 11:00 PM) Temperature Route Oral (11/16/20 7:03 AM) Oral (11/16/20 4:00 AM) Oral (11/15/20 11:00 PM) Dry Weight 76.5 kg (11/14/20 8:40 AM) 77.5 kg (11/02/20 2:40 PM) Weight Obtained Via Standing scale (11/14/20 8:40 AM) Dry Weight Obtained Via Standing scale (11/14/20 8:40 AM) Patient/family stated (11/02/20 2:40 PM) Social History Social History Type Response Smoking Status Former smoker; Other : quit smoking 40 years ago; entered on: 08/11/14 Sex Female
--- NOTE | 2024-03-30 09:56 | MHC.OFFWIV ---
Intake Vital Signs 03/30/24 09:58 Weight 140 lb BP 130/86 Blood Pressure Location Rt brachial Position Sitting Pulse 84 Pulse Source Pulse Oximeter Pulse Oximetry (%) 96 Oxygen Delivery Method Room Air Intake Visit Reasons: EP LT leg bruising, bump after injury. Intake Note: Patient here because she hit her left leg and now has a bruise and bump that seems to be spreading. Patient Tobacco Use Status: Former Tobacco user Allergies No Known Allergies [No Known Allergies*] Allergy (Verified 03/30/24 09:59) Do you need a note to return to daycare/school/sports/work: No HPI EP LT leg bruising, bump after injury. HPI Details This note is constructed using voice recognition software. While every effort has been made to ensure accuracy, space systems operations craftsman errors may have been included. The patient is a 78 year old female who presents to the clinic today with bruising to her left lower extremity since she bumped it 4 days ago. She notes that she developed a bump to the area, and the bruising seemed to be getting a little bit worse. She denies any change of color in her extremity distal to this, or any difficulty walking more than her normal. [facility] Medical History (Updated 02/28/24 @ 19:40 by Luann Chapman MD) On anticoagulant therapy Hemorrhoids Polyarthralgia Trigger finger Femoral distal fracture Urge incontinence of urine Diverticulosis Varicose vein of leg Osteoarthritis Surgical History History of right cataract surgery History of left cataract surgery History of total right knee replacement (TKR) History of surgery on lower extremity History of surgery History of arthroscopy of right knee History of bunionectomy History of appendectomy History of tonsillectomy History of total hysterectomy Family History Father Stomach cancer Mother No problems noted. Sister Ovarian cancer Social History Household Members: None Housing: House Are you a primary neurocritical care physician to a significant other at home: No Do you presently have visiting nurse or other home services: No Alcohol intake: current Alcohol intake frequency: holidays/special occasions only Comment: Uses cane for support when outside Patient Tobacco Use Status: Former Tobacco user Tobacco use type: Cigarette e-Cigarette/Vaping Use: Never Used Second Hand Smoke Exposure: No service: No Current occupational status: retired Current occupation: Payroll Cognitive needs: No Hearing needs: No Vision needs: Yes Review of Systems Const All systems reviewed & are unremarkable except as noted in HPI and below Physical Exam Vital Signs: Last Vital Signs Pulse 84 03/30/24 09:58 BP 130/86 03/30/24 09:58 Pulse Ox 96 03/30/24 09:58 Oxygen Delivery Method Room Air 03/30/24 09:58 Const General: cooperative, healthy appearing, comfortable, no acute distress and alert Orientation/consciousness: patient oriented x3 Limitations: no limitations Resp Effort & Inspection: normal respiratory effort and able to speak in complete sentences Skin General skin exam: no rashes or lesions noted, elasticity normal and turgor normal Neuro General: patient oriented x3 Extrem Other: Left leg hematoma approximately 2 cm diameter, with surrounding ecchymosis approximately 10 x 5 cm. Distal neurovascular exam intact leg strength 5/5. General: Yes full ROM, Yes capillary refill normal and Yes normal exam except as noted Psych Appearance: grossly normal Mental Status: mental status grossly normal Speech and movement: Normal speech and movement present Affect: normal affect Assessment & Plan Assessment & Plan (1) Hematoma: Code(s): T14.8XXA - Other injury of unspecified body region, initial encounter Plan: Likely secondary to minimal trauma, a in addition to use of blood thinners chronically. Advised warm compress, as well as compression to help reabsorb, however additional intervention not necessary at this time. Reviewed signs and symptoms that would warrant emergent re-evaluation. Plan See above for full details and plan. Coding Level of Care Code Est Pt Level 3 (13716) Diagnoses Hematoma T14.8XXA
[2024-03-30 09:58] VITALS: BP 130/86; PULSE 84; O2SAT 96
== END 2024-03-30 10:32 | disposition home or self-care (01) ==
PROVIDERS: PCP Internal Medicine; Visit Provider Registered Nurse
DX: T14.8XXA Other injury of unspecified body region, initial encounter (principal)

== ENCOUNTER → 2024-03-30 09:53 | Outpatient (BNVA) | payer MEDICARE, SELFPAY | PROVIDERS: PCP Internal Medicine; Visit Provider Registered Nurse | DX: S89.92XA Unspecified injury of left lower leg, initial encounter (principal) | CPT/HCPCS: 99212 ==

== ENCOUNTER 2024-03-31 10:29 | Outpatient (REF) | payer MEDICARE, SELFPAY ==
--- NOTE | ~2024-03-31 | MM_ITS ---
EXAMINATION: MM SCREENING DIGITAL BREAST TOMOSYNTHESIS, BILATERAL CLINICAL INFORMATION: Screening. Asymptomatic. COMPARISON: Mammography: Comparison is made with available priors TECHNIQUE: Digital breast mammography with tomosynthesis is performed in both the craniocaudal and mediolateral oblique views along with computer-aided detection (CAD). FINDINGS: There are scattered areas of fibroglandular density (ACR BI-RADS breast composition Category b). There are no significant masses, abnormal calcifications, or other abnormalities. MM/MM tomosynthesis screening BI IMPRESSION: No mammographic evidence of malignancy. ASSESSMENT: BI-RADS BI-RADS 1 - Negative RECOMMENDATION: Routine annual mammography screening. 1 year F/U This examination should not preclude the clinical evaluation of a suspicious palpable abnormality. This patient's information was entered into a reminder system with a target due date for their next mammogram. Electronically signed by: Pattie Matthews DO 04/12/2024 12:27 PM EDT
== END 2024-03-31 10:30 | disposition home or self-care (01) ==
LOC: HO.MAMMO 10:29
PROVIDERS: PCP Internal Medicine; Visit Provider Internal Medicine
DX: Z12.31 Encounter for screening mammogram for malignant neoplasm of breast (principal)
CPT/HCPCS: 77063; 77067

== ENCOUNTER → 2024-03-31 10:45 | Outpatient (BNV) | payer MEDICARE, SELFPAY | PROVIDERS: PCP Internal Medicine; Visit Provider Internal Medicine | DX: Z12.31 Encounter for screening mammogram for malignant neoplasm of breast (principal) | CPT/HCPCS: 77063; 77067 ==

== ENCOUNTER → 2024-10-06 13:47 | Outpatient (REF) | payer MEDICARE, SELFPAY ==
--- NOTE | 2024-10-06 13:51 | CA_ITS ---
Transthoracic Echocardiogram Patient (Last, First, Middle): Jewell Charles E Gender: Female Date of : 1945 Age: 79 Procedure Date: 10/06/2024 Procedure Type: Transthoracic Echocardiogram Location: OP Height: 154.94 cm Weight: 62.6 kg BSA: 1.61 m2 Heart Rate: 78 bpm BP: 122 / 78 mmHg Bilingual Trainer: SB Referring MD: Ruddy Trammell MD Symptoms: I42.9 - Cardiomyopathy, unspecified/limited echo ordered Study Quality: Adequate ECG Rhythm: Sinus Conclusions: - The left ventricular systolic function is normal. The visually estimated ejection fraction is between 55-60%. Findings Left Ventricle Normal left ventricular cavity size. The left ventricular systolic function is normal. The visually estimated ejection fraction is between 55-60%. There is no evidence of regional wall motion abnormalities. There is mild septal asymmetric hypertrophy. Aortic Valve There is no aortic valve stenosis. There is no aortic valve regurgitation. Prior Study Comparison Changes noted compared to prior study dated: 02/06/2022. LVEF appears improved. Measurements 2D Linear Measurements IVSd: 1.10 0.6-0.9/0.6-1.0 cm LVIDd: 4.94 3.9-5.3/4.2-5.9 cm LVIDd Index: 3.07 2.4-3.2/2.2-3.1 cm/m2 LVIDs: 3.27 2.0-3.6 cm LVPWd: 0.78 0.7-1.1 cm LA Diam: 3.40 2.7-3.8/3.0-4.0 cm LAIDs Index: 2.11 1.5-2.3 cm/m2 LV Mass: 203.95 67-162/88-224 g LV Mass Index: 126.68 43-95/49-115 g/m2 LVOT Diam: 2.20 3.0+(-)1.3 cm 2D Systolic Function EF 4C: 54.00 >55% EF 2C: 59.60 >55% EF BiP: 57.80 >55% Mitral Valve MV Pk E: 0.57 MV PK A: 0.84 MV Decel Time: 211.00 E/A: 0.70 E'Lateral: 5.00 E'Medial: 4.03 E/E' Med: 14.20 E/E' Lat: 11.50 PHT: 62.00 MVA PHT: 3.55 Decel [place]: 2.73 LVOT LVOT Pk [place]: 0.83 LVOT Mn [place]: 0.59 LVOT VTI: 0.17 LVOT Pk Grad: 3.00 LVOT Mn Grad: 2.00 LVOT Diam: 2.20 LVOT Area: 3.80 Diastolic Function MV Pk E: 0.57 MV Pk A: 0.84 E/A: 0.70 E'Medial: 4.03 E/E' Med: 14.20 E' Laterial: 5.00 E/E' Lat: 11.50 Tricuspid Valve RA Press: 3.00 Great Vessels Aorta Sinus of Valsalva: 3.00 2.0-3.5 cm Updated in Other Vendor System with Status of Final Yousuf Pond MD electronically signed on 10/08/2024 10:32:16 AM with status of Final
== END ==
LOC: HO.CARD 13:47
PROVIDERS: PCP Internal Medicine; Visit Provider Internal Medicine Cardiovascular Disease
DX: I42.9 Cardiomyopathy, unspecified (principal); I48.0 Paroxysmal atrial fibrillation
CPT/HCPCS: 93308

== ENCOUNTER → 2024-10-06 13:51 | Outpatient (BNV) | payer MEDICARE, SELFPAY | PROVIDERS: PCP Internal Medicine; Visit Provider Internal Medicine | DX: I42.2 Other hypertrophic cardiomyopathy (principal) | CPT/HCPCS: 93308; 93321 ==

== ENCOUNTER 2024-10-10 | Outpatient (REF) | payer MEDICARE, SELFPAY ==
[2024-10-10 14:00] VITALS: BP 173/77; PULSE 73; RESP 16; TEMP 36.1; O2SAT 95; BMI 27.3
== END 2024-10-10 00:01 | disposition home or self-care (01) ==
LOC: HO.MS
PROVIDERS: PCP Internal Medicine; Visit Provider Ophthalmology
PROC: (CPT 67840; principal; 2024-10-10 14:30)
DX: L82.1 Other seborrheic keratosis (principal); D23.122 Other benign neoplasm of skin of left lower eyelid, including canthus
CPT/HCPCS: 67840; 88305

== ENCOUNTER 2024-10-10 11:58 | Outpatient (REF) | payer MEDICARE, SELFPAY | END 2024-10-10 11:59 | disposition home or self-care (01) | LOC: HO.SSS 11:58 | PROVIDERS: PCP Internal Medicine; Visit Provider Ophthalmology | DX: Z13.89 Encounter for screening for other disorder (principal) | CPT/HCPCS: J2003 ==

== ENCOUNTER 2024-10-21 10:37 | Outpatient (AMB) | payer MEDICARE, SELFPAY ==
[2024-10-21 10:54] VITALS: BP 124/68; PULSE 75; BMI 26.2
--- NOTE | 2024-10-21 10:54 | MHC.OFFVIS ---
Vital Signs 10/21/24 10:54 Height 5 ft 1 in Weight 138 lb 14.259 oz BMI 26.2 BP 124/68 Blood Pressure Location Lt brachial Position Sitting Pulse 75 Pulse Source Monitor Intake Visit Reasons: 1 year fu Allergies No Known Allergies [No Known Allergies*] Allergy (Verified 03/30/24 09:59) Medication List - Last Reconciled 10/21/24 by Ruddy Trammell MD acetaminophen ER (Tylenol Arthritis Pain) 650 mg PO Q8H ascorbic acid (vitamin C) 500 mg PO DAILY calcium carbonate (Calcium 600) 600 mg PO DAILY diclofenac sodium 1% grams topical ergocalciferol (vitamin D2) 1,250 mcg PO QWEEK meloxicam 15 mg PO DAILY metoprolol succinate ER 50 mg PO DAILY 90 days vdicprzt-kxj-imjl-FA-vit K-lut 8 mg iron-400 mcg-50 mcg (Centrum Silver Women) 1 tab PO DAILY oxybutynin chloride ER 10 mg PO DAILY rivaroxaban (Xarelto) 20 mg PO DAILY HPI Comments Details: Jewell comes for follow-up. Cardiac symptoms to report. Complains of episodes of chest discomfort at nighttime which wakes her up from sleep feels like pressure in his chest and she takes Tums and the symptoms resolved. She had a myocardial perfusion imaging couple years ago which was within normal limits. Symptoms have not worse and not present with exercise. Denies any prolonged palpitation irregular heartbeat. Blood pressures been well controlled. She takes all her medications. No heart failure symptoms. No bleeding issues or neurologic events. Most recent echocardiogram showed normalized LV ejection fraction. [facility] Medical History On anticoagulant therapy Hemorrhoids Polyarthralgia Trigger finger Femoral distal fracture Urge incontinence of urine Diverticulosis Varicose vein of leg Osteoarthritis Surgical History History of right cataract surgery History of left cataract surgery History of total right knee replacement (TKR) History of surgery on lower extremity History of surgery History of arthroscopy of right knee History of bunionectomy History of appendectomy History of tonsillectomy History of total hysterectomy Family History Father Stomach cancer Mother No problems noted. Sister Ovarian cancer Social History Household Members: None Housing: House Are you a primary wound care technician to a significant other at home: No Do you presently have visiting nurse or other home services: No Alcohol intake: current Alcohol intake frequency: holidays/special occasions only Comment: Uses cane for support when outside Patient Tobacco Use Status: Former Tobacco user Tobacco use type: Cigarette e-Cigarette/Vaping Use: Never Used Second Hand Smoke Exposure: No service: No Current occupational status: retired Current occupation: Payroll Cognitive needs: No Hearing needs: No Vision needs: Yes Review of Systems Const Denies chills, Denies fatigue, Denies fever(s), Denies frequent falls, Denies weakness, Denies weight gain and Denies weight loss ENT Denies dizziness Card Denies chest pain, Denies leg edema, Denies lightheadedness, Denies palpitations, Denies dyspnea, Denies dyspnea on exertion, Denies orthopnea and Denies other (loss of consciousness) Resp Denies cough, Denies dyspnea and Denies dyspnea on exertion GI Denies hematochezia and Denies change in stool character Musc Denies abnormal gait, Denies muscle weakness, Denies numbness, Denies radiating pain into limb and Denies tingling Neuro Denies Abnormal speech present, Denies abnormal gait, Denies dizziness, Denies frequent falls, Denies numbness, Denies tingling and Denies weakness Endo Denies fatigue and Denies palpitations Physical Exam Vital Signs: Last Vital Signs Pulse 75 10/21/24 10:54 BP 124/68 10/21/24 10:54 BMI result Body Mass Index 26.2 Repeat blood pressure is 140/70 with heart rate of 88 beats per minute Const General: cooperative, comfortable, no acute distress, alert, awake and well groomed Nutritional Appearance: average body habitus Orientation/consciousness: patient oriented x3 Limitations: ambulation with walker HEENT Head: Yes normocephalic and Yes atraumatic Neck Neck: Yes trachea midline, Yes supple and Yes no JVD Chest Chest palpation & inspection: normal inspection of the chest Resp Effort & Inspection: normal respiratory effort Auscultation: clear to auscultation bilaterally Cardio Jugular venous distension: no JVD Palpation: normal PMI Rate: regular rate Rhythm: regular rhythm Heart sounds: S1 normal heart sound present, S2 normal heart sound present, no click, no gallops, no murmurs and no rubs GI Auscultation: normal bowel sounds Skin General skin exam: no rashes or lesions noted Neuro General: patient oriented x3 and no focal motor deficits Speech: No Abnormal speech present Extrem General: Yes other (Left lower extremity is in a cast with at least 2 to 3+ edema) Psych Affect: Anxious affect present Office Procedures EKG Details: EKG shows normal sinus rhythm with left axis deviation with incomplete right bundle-branch block [id number], Complete Assessment & Plan Assessment & Plan (1) Paroxysmal atrial fibrillation: Comment: On Xarelto Code(s): I48.0 - Paroxysmal atrial fibrillation Category: Medical Plan: Paroxysmal atrial fibrillation without any overt signs or recurrence. Continue metoprolol therapy. Continue full oral anticoagulation, currently on Xarelto 20 mg daily. She has been able to tolerate this medication well. Recommend semi annual renal function test as well as annual CBC. Avoidance of stimulants was discussed. No indication for antiarrhythmic drug therapy but will pursue rhythm control approach. (2) Cardiomyopathy: Code(s): I42.9 - Cardiomyopathy, unspecified Category: Medical Plan: Cardiomyopathy with normalized LV ejection fraction on current neurohormonal modulation by recent echocardiogram. Continue neurohormonal modulation with metoprolol. Avoidance of cardiotoxic agent was discussed. Continue rhythm control approach. Follow-up echocardiogram next year. Discussed signs and symptoms of heart failure. Will follow up in the clinic in 1 year's time, sooner p.r.n.. Thank you for allowing me to partake in his care Orders: Orders CA echo transthoracic complete 1 Year I42.9 - Cardiomyopathy, unspecified Coding Level of Care Code Est Pt Level 4 (19845) Complex EM visit Add On G2211 Diagnoses Paroxysmal atrial fibrillation I48.0 Cardiomyopathy I42.9 CPT Codes EKG - CPT: 15336-[id number], Complete ([id number])
== END 2024-10-21 11:25 | disposition home or self-care (01) ==
LOC: HO.HCS 10:38
PROVIDERS: PCP Internal Medicine; Visit Provider Internal Medicine Cardiovascular Disease
DX: I48.0 Paroxysmal atrial fibrillation (principal); I42.9 Cardiomyopathy, unspecified
CPT/HCPCS: 93010; 99214; G2211

== ENCOUNTER → 2024-10-21 10:37 | Outpatient (BNVA) | payer MEDICARE, SELFPAY | PROVIDERS: PCP Internal Medicine; Visit Provider Internal Medicine Cardiovascular Disease | DX: I48.0 Paroxysmal atrial fibrillation (principal); I42.9 Cardiomyopathy, unspecified | CPT/HCPCS: 93005; 99212 ==

== ENCOUNTER 2024-11-14 10:49 | Outpatient (AMB) | payer MEDICARE, SELFPAY ==
--- NOTE | 2024-11-14 11:09 | MHC.PC.OV ---
Vital Signs 11/14/24 11:18 Height 5 ft 1 in Weight 142 lb 4 oz BMI 26.9 BP 132/84 Blood Pressure Location Lt brachial Position Sitting Respiration 20 Pulse 79 Pulse Source Pulse Oximeter Temp 98.4 F Temp Source Oral Pulse Oximetry (%) 97 Oxygen Delivery Method Room Air Intake Visit Reasons: PE - see comments Intake Note: Jewell is here for PE today. Her last mammogram was 03/31/24 Colonoscopy- 11/05/23 Allergies No Known Allergies [No Known Allergies*] Allergy (Verified 11/14/24 11:35) Medication List - Last Reconciled 11/14/24 by Luann Chapman MD acetaminophen ER (Tylenol Arthritis Pain) 650 mg PO Q8H ascorbic acid (vitamin C) 500 mg PO DAILY calcium carbonate (Calcium 600) 600 mg PO DAILY diclofenac sodium 1% grams topical meloxicam 15 mg PO DAILY metoprolol succinate ER 50 mg PO DAILY 90 days mpjmelty-udq-bfha-FA-vit K-lut 8 mg iron-400 mcg-50 mcg (Centrum Silver Women) 1 tab PO DAILY oxybutynin chloride ER 10 mg PO DAILY rivaroxaban (Xarelto) 20 mg PO DAILY Tobacco use date assessed: 11/14/24 Fall risk assessment: No Falls in past year Last assessed Fall Risk: 11/14/24 Dental Screening Dental Screen Date: 11/14/24 Did you have a dental visit in the last 12 months?: No Did you have a dental problem in the last 6 months where you did not have access to dental care?: No Was dental information given to patient?: Patient has dentist HPI PE - see comments HPI Details 79-year-old lady here today for her physical exam. She has paroxysmal atrial fibrillation currently on Xarelto and metoprolol succinate, has been feeling well, with no complaints of any chest pain or shortness of breath or lightheadedness or dizziness. Currently followed by Cardiology. Takes meloxicam for her osteoarthritis 15 mg once a day She has history of osteoporosis, previously seen by Dr. Ortiz approximately 3 years ago and was placed on a medication which she states was not covered by her insurance, has not seen him since, overdue for repeat bone density scan. No history of recent fractures has been taking calcium and vitamin-D 3 supplements. Complains of intermittent episodes of heartburn usually at night. Takes her medicines at night with orange juice has been taking vpej-bal-xuwcliw Pepcid AC which has been helping. Complains of urinary incontinence currently on oxybutynin chloride ER 10 mg once daily which has been helping . She is up-to-date with her breast cancer screening, due again this March She is up-to-date with all her vaccines [facility] Medical History (Updated 11/14/24 @ 12:00 by Luann Chapman MD) On anticoagulant therapy Hemorrhoids Polyarthralgia Trigger finger Femoral distal fracture Urge incontinence of urine Diverticulosis Varicose vein of leg Osteoarthritis Surgical History History of right cataract surgery History of left cataract surgery History of total right knee replacement (TKR) History of surgery on lower extremity History of surgery History of arthroscopy of right knee History of bunionectomy History of appendectomy History of tonsillectomy History of total hysterectomy Family History Father Stomach cancer Mother No problems noted. Sister Ovarian cancer Social History Household Members: None Housing: House Are you a primary day care provider to a significant other at home: No Do you presently have visiting nurse or other home services: No Alcohol intake: current Alcohol intake frequency: holidays/special occasions only Comment: Uses cane for support when outside Patient Tobacco Use Status: Former Tobacco user Tobacco use type: Cigarette e-Cigarette/Vaping Use: Never Used Second Hand Smoke Exposure: No service: No Current occupational status: retired Current occupation: Payroll Cognitive needs: No Hearing needs: No Vision needs: Yes Questionnaire PHQ-9 Over the last 2 weeks, how often have you been bothered by any of the following problems? 1. Little interest or pleasure in doing things: not at all 2. Feeling down, depressed, or hopeless: not at all 3. Trouble falling or staying asleep, or sleeping too much: several days 4. Feeling tired or having little energy: several days 5. Poor appetite or overeating: not at all 6. Feeling bad about yourself - or that you are a failure or have let yourself or your family down: not at all 7. Trouble concentrating on things, such as reading the newspaper or watching television: not at all 8. Moving or speaking so slowly that other people could have noticed. Or the opposite - being so fidgety or restless that you have been moving around a lot more than usual: not at all 9. Thoughts that you would be better off or of hurting yourself in some way: not at all Total score: 2 Depression Screening Interpretation: Negative Depression Screening Done: Yes 86339 - PHQ-9 Billing: Yes Source: Developed by Drs. Talon Orosco, Naomy Ricci, Charli Li and colleagues, with an educational iliana from [employer]. Thrive Questionnaire Date Thrive assessed: 11/14/24 I am a: Patient What is your living situation today?: I have a steady place to live Within the past 12 months, did the food you bought not last and you didn't have the money to get more?: Never true Within the past 12 months, did you worry whether your food would run out before you got money to buy more?: Never true Do you have trouble paying for medicines?: No Do you have trouble getting transportation to medical appointments?: No Do you have trouble paying your heating and electricity bill?: No Do you have trouble taking care of your child, family member or friend?: No Do you have trouble with day-to-day activities such as bathing, preparing meals, shopping, managing finances, etc.?: No Are you currently unemployed and looking for a job?: No Are you interested in more education?: No Please select the resources that you would like help with: None Currently or been in a relationship where the following occur: I choose not to answer THRIVE Score: 0 AUDIT C Alcohol Use Questionnaire (AUDIT-C) 1. How often do you have a drink containing alcohol?: Never Total Score: 0 ZOË-7 AMB Questionnaire ZOË-7 Date ZOË - 7 assessed: 11/14/24 Feeling nervous, anxious, or on edge: 0 = Not at all Not being able to stop or control worryin = Not at all Worrying too much about different things: 0 = Not at all Trouble relaxin = Not at all Being so restless that it is hard to sit still: 0 = Not at all Becoming easily annoyed or irritable: 0 = Not at all Feeling afraid as if something awful might happen: 0 = Not at all Total ZOË-7 score (0-4 normal; 5-9 mild; 10-14 moderate; 15-21 severe): 0 Source: Developed by Drs. Talon Orosco, Naomy Ricci, Charli Li and colleagues, with an educational iliana from [employer]. ZOË-7 Assessment Billing ZOË-7 Assessment Tool: ZOË-7 Assessment 11279 Review of Systems Const Denies fatigue, Denies fever(s), Denies frequent falls and Denies weakness Eyes Details: status post cataract surgery, sees Dr. Keene ENT Details: Gets dental cleaning every 6 month Reports disequilibrium (Uses a walker) Card Denies chest pain, Denies pedal edema, Denies leg edema, Denies lightheadedness, Denies palpitations, Denies dyspnea, Denies dyspnea on exertion and Denies orthopnea Resp Denies cough, Denies dyspnea and Denies dyspnea on exertion GI Denies hematochezia and Denies change in stool character Reports as per HPI Musc Reports arthralgias, Denies muscle weakness, Denies numbness, Denies radiating pain into limb, Reports stiffness and Denies tingling Skin/Breast Denies breast pain, Denies breast mass, Denies change in breast shape and Denies rash Neuro Denies Abnormal speech present, Denies frequent falls, Denies numbness, Denies tingling, Reports disequilibrium (Uses a walker) and Denies weakness Psych Reports no additional complaints Endo Denies fatigue and Denies palpitations Rambo/Lymph Reports no additional complaints Aller/Immun Reports no additional complaints Physical exam (Primary Care) Vital Signs: Last Vital Signs Temp 98.4 F 11/14/24 11:18 Pulse 79 11/14/24 11:18 Resp 20 11/14/24 11:18 BP 132/84 11/14/24 11:18 Pulse Ox 97 11/14/24 11:18 Oxygen Delivery Method Room Air 11/14/24 11:18 BMI result Body Mass Index 26.9 Tobacco/Smoking Status: Tobacco use Status Tobacco use date assessed 11/14/24 11/14/24 11:23 Patient Tobacco Use Status Former Tobacco user 11/14/24 11:09 Tobacco use type Cigarette 11/14/24 11:09 e-Cigarette/Vaping Use Never Used 11/14/24 11:09 PHQ-9: PHQ-9 Score PHQ-9: Total score 2 11/14/24 11:49 Depression Screening Interpretation: Negative Thrive Assessment: Date of Thrive Assessment Date Thrive assessed 11/14/24 11/14/24 11:28 Currently or been in a relationship where the following occur: I choose not to answer Const General: cooperative, comfortable and no acute distress Orientation/consciousness: patient oriented x3 HENMT Ears: external ears normal, TM's normal bilaterally and EAC's normal General nose exam: Normal external nose present Mouth: oropharynx normal and moist mucous membranes Eyes General: appearance normal, both eyes and all related structures Neck Neck: Yes full ROM, Yes no lymphadenopathy and Yes supple Resp Effort & Inspection: normal respiratory effort and able to speak in complete sentences Auscultation: clear to auscultation bilaterally Cardio Rate: regular rate Rhythm: regular rhythm Heart sounds: S1 normal heart sound present and S2 normal heart sound present GI Inspection: Yes normal to inspection Palpation (GI): Soft to palpation, nontender and no masses Auscultation: normal bowel sounds Back/Spine/Pelvis Cervical Spine: cervical ROM normal Thoracic/Lumbar Spine: thoracic and lumbar spine normal to inspection Skin Other: Erythematous patch around periumbilical area Neuro General: patient oriented x3, tone normal, moves all extremities, Normal light touch and pain sensation and no focal motor deficits Cognition (Neuro): normal cognition Speech: No Abnormal speech present Motor exam (neuro): 5/5 motor strength present throughout Extrem General: Yes full ROM, Yes no pedal edema and Yes no calf tenderness Psych Appearance: grossly normal Mental Status: mental status grossly normal Speech and movement: Normal speech and movement present Affect: normal affect Coding Level of Care Code New Pt Prev Care >65yr (64982) Diagnoses Pathological fracture of right femur due to age-related osteoporosis, initial encounter M80.051A Encounter type: initial encounter Laterality: right Osteoporosis type: age-related Site of pathological fracture: femur Paroxysmal atrial fibrillation I48.0 On anticoagulant therapy Z79.01 Intertrigo of skin fold of abdomen L30.4 Primary hypertension I10 Hypertension type: primary hypertension Urge incontinence of urine N39.41 Annual visit for general adult medical examination with abnormal findings Z00.01 Additional Codes ZOË-7 Assessment Billing - ZOË-7 Assessment Tool: ZOË-7 Assessment 25779 ([id number]) PHQ-9 - 59924 - PHQ-9 Billing: Yes ([id number]) Assessment & Plan Assessment & Plan (1) Osteoporosis with fracture: Code(s): M80.80XA - Other osteoporosis with current pathological fracture, unspecified site, initial encounter for fracture Category: Medical Qualifiers: Encounter type: initial encounter Laterality: right Osteoporosis type: age-related Site of pathological fracture: femur Qualified Code(s): M80.051A - Age-related osteoporosis with current pathological fracture, right femur, initial encounter for fracture Plan: Ordered a repeat bone density scan, take adequate calcium from dietary sources and take vitamin-D 3 at least 2000 units daily. (2) Paroxysmal atrial fibrillation: Comment: On Xarelto Code(s): I48.0 - Paroxysmal atrial fibrillation Category: Medical Plan: Currently on metoprolol succinate and Xarelto, followed by cardiology (3) On anticoagulant therapy: Code(s): Z79.01 - M[facility] (current) use of anticoagulants Category: Medical Plan: Currently on Xarelto with no side effects noted (4) Intertrigo of skin fold of abdomen: Code(s): L30.4 - Erythema intertrigo Plan: Prescription sent for nystatin-triamcinolone cream, to apply sparingly to affected area once a day for no more than 10 days at a time, keep the areas clean and dry at all times. (5) HTN (hypertension): Code(s): I10 - Essential (primary) hypertension Category: Medical Qualifiers: Hypertension type: primary hypertension Qualified Code(s): I10 - Essential (primary) hypertension Plan: Blood pressure at goal of less than 130/80. Continue with current medication. Reinforced importance of following a low sodium diet, getting regular exercise, and lowering stress levels. (6) Urge incontinence of urine: Code(s): N39.41 - Urge incontinence Category: Medical Plan: Currently on oxybutynin chloride ER 10 mg daily (7) Annual visit for general adult medical examination with abnormal findings: Code(s): Z00.01 - Encounter for general adult medical examination with abnormal findings Plan: Will check appropriate labs. Continue ready dental visit every 6 months and regular eye exams, at least every 2 years. Take adequate calcium in diet and vitamin-D 3 at 2000 IU per cap once a day, in addition to weight-bearing exercises to help maintain good muscle tone and weight control. Instructed to do self-breast exam, and is up-to-date with the yearly mammogram repeat bone density scan ordered. No longer gets screening colonoscopies up-to-date with all her vaccines Orders: Orders XR DEXA axial skeleton Today M80.051A - Age-related osteoporosis with current pathological fracture, right femur, initial encounter for fracture Medications: New nystatin-triamcinolone 100,000-0.1 unit/g-% 1 appl topical DAILY 30 grams 0RF 10 days L30.4 - Erythema intertrigo famotidine 40 mg PO BEDTIME 30 tabs 3RF cholecalciferol (vitamin D3) 50 mcg PO DAILY 30 caps 0RF
[2024-11-14 11:18] VITALS: BP 132/84; PULSE 79; RESP 20; TEMP 36.9; O2SAT 97; BMI 26.9
== END 2024-11-14 11:54 | disposition home or self-care (01) ==
LOC: HO.HMCC 10:53
PROVIDERS: PCP Internal Medicine; Visit Provider Internal Medicine
DX: M80.051A Age-related osteoporosis with current pathological fracture, right femur, initial encounter for fracture (principal); I48.0 Paroxysmal atrial fibrillation; Z79.01 Long term (current) use of anticoagulants; L30.4 Erythema intertrigo; I10 Essential (primary) hypertension; N39.41 Urge incontinence; Z00.01 Encounter for general adult medical examination with abnormal findings

== ENCOUNTER → 2024-11-14 10:49 | Outpatient (BNVA) | payer MEDICARE, SELFPAY | PROVIDERS: PCP Internal Medicine; Visit Provider Internal Medicine | DX: Z00.01 Encounter for general adult medical examination with abnormal findings (principal); I48.0 Paroxysmal atrial fibrillation; L30.4 Erythema intertrigo; I10 Essential (primary) hypertension; N39.41 Urge incontinence; M80.051A Age-related osteoporosis with current pathological fracture, right femur, initial encounter for fracture; X58.XXXA Exposure to other specified factors, initial encounter; Y93.9 Activity, unspecified; Y92.9 Unspecified place or not applicable; Y99.9 Unspecified external cause status; Z79.01 Long term (current) use of anticoagulants; Z79.899 Other long term (current) drug therapy | CPT/HCPCS: 96127; 99387 ==

== ENCOUNTER 2024-12-12 08:28 | Outpatient (AMB) | payer MEDICARE, SELFPAY ==
--- OUTSIDE RECORDS SUMMARY | 2024-12-12 08:35 | XMS_ITS | Patient Health Record ---
Author Organization [facility] Address [address] [place] [address] Care Team Providers Care Green Plumber Name Role Phone Kristina ENCISO, Lucy Primary Care Provider U chandra Johnston Talon Unavailable [phone] Reason For Referral No Information Medications Medication SIG (Take, Route, Frequency, Duration) Notes Start Date End Date Status Caltrate 600 Active Chondroitin Sulfate Active Glucosamine Active CeleBREX 200mg Activ e Cyclobenzaprine HCl 10mg Active Vitamin C Active OsmoPrep 1.102-0.398 GM as directed Oral ly as directed for 1 days 09/01/2013 Active Vitamin D Active Problems Problem Type SNOMED Code ICD Code Onset Dates Problem Status W/U Status Risk Notes Problem Constipation (88904224) Unspecified constipation (564.00) Active confirmed Problem Digestive system symptom (555518899) Other symptoms involving digestive system (787.99) Active confirmed Problem History of polyp of colon (situation) (013059380) Personal history of colonic polyps (V12.72) Active confirmed Problem Change in bowel habit (13599331) Change in bowel habits (787.99) Active confirmed Problem Screening for malignant neoplasm of colon (941347425) Screening for colorectal cancer (V76.51) Active confirmed Problem History of adenomatous polyp of colon (163624135) History of adenomatous polyp of colon (V12.72) Active confirmed Plan Of Treatment Future Test Test Name Order Date COLONOSCOPY 08/31/2013 Insurance Providers Payer Name Payer Address Payer Phone Subscriber Number Group Number Insured Name Patient Relationship to Insured Coverage Start Date Coverage End Date [facility] [address] [place] [address] [id number] COONR GUERRIER Self - patient is the insured Medical (General) History Medical History History ICD Code 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
--- NOTE | 2024-12-12 09:15 | AM.OFFWIN_ITS ---
Intake Vital Signs 12/12/24 09:16 Height 5 ft 1 in Weight 139 lb BMI 26.3 BP 124/70 Blood Pressure Location Lt brachial Position Sitting Pulse 95 Pulse Source Pulse Oximeter Temp 98.6 F Temp Source Oral Pulse Oximetry (%) 96 Oxygen Delivery Method Room Air Intake Visit Reasons: EP Chest congestion, phlegm, cough, voice Intake Note: pt present with chest congestion, productive cough w/ green phlemg, loss of voice, mild headache. denies weakness/lethargy, throat ache. Patient Tobacco Use Status: Former Tobacco user Allergies No Known Allergies (No Known Allergies*) Allergy (Verified 12/12/24 09:17) Do you need a note to return to daycare/school/sports/work: No HPI HPI Comments History of Present Illness0 Details History - The patient is an 79-year-old female p resenting with cough and chest tightness. - The cough began over the weekend and i s productive of green sputum. - The patient denies fever, ear pain, or sore throat. - She reports chest tightness associated with coughing but has no history of asthma or COPD. - She has been using dextromethorphan wi th no relief. - The patient is not eating much but is maintaining fluid intake. - She has no sick contacts or recent tra eber. - She denies [place], sore throat, ear pain, abd pain, n/v/d Physical Exam General: Cooperative, healthy appearing, comfortable and no acute distress Orientation/consciousness: Patient oriented x3 Ears: Hearing grossly normal bilaterally, external ears normal and TM's normal bilaterally Nose: Normal external nose present, normal nares present, and no nasal discharge present. Face and sinus: Sinuses nontender to palpation. Mouth: Normal oral and palatal mucosa present and moist mucous membranes noted. Throat: Tonsils normal. Uvula is midline. Posterior oropharynx with mild erythema and no exudates. Eyes: Appearance normal, both eyes and all related structures Neck: Normal visual inspection, full ROM. No lymphadenopathy noted. Respiratory: Clear to auscultation bilaterally. Normal respiratory effort, able to speak in complete sentences. No respiratory distress, not tachypneic, no tripod positioning and no use of accessory muscles. Cardiovascular: Regular rate and rhythm. Normal S1 and S2 Skin: No rashes or lesions noted Patient was informed and verbally consented to the use of an ambient scribe for clinic note documentation during this visit [facility] Medical History (Updated 11/14/24 @ 12:00 by Luann Chapman MD) On anticoagulant therapy Hemorrhoids Polyarthralgia Trigger finger Femoral distal fracture Urge incontinence of urine Diverticulosis Varicose vein of leg Osteoarthritis Surgical History History of right cataract surgery History of left cataract surgery History of total right knee replacement (TKR) History of surgery on lower extremity History of surgery History of arthroscopy of right knee History of bunionectomy History of appendectomy History of tonsillectomy History of total hysterectomy Family History Father Stomach cancer Mother No problems noted. Sister Ovarian cancer Social History Household Members: None Housing: House Are you a primary district manager primary care sales to a significant other at home: No Do you presently have visiting nurse or other home services: No Alcohol intake: current Alcohol intake frequency: holidays/special occasions only Comment: Uses cane for support when outside Patient Tobacco Use Status: Former Tobacco user Tobacco use type: Cigarette e-Cigarette/Vaping Use: Never Used Second Hand Smoke Exposure: No service: No Current occupational status: retired Current occupation: Payroll Cognitive needs: No Hearing needs: No Vision needs: Yes Review of Systems Const All systems reviewed & are unremarkable except as noted in HPI and below Physical Exam Vital Signs: Last Vital Signs Temp 98.6 F 12/12/24 09:16 Pulse 95 12/12/24 09:16 BP 124/70 12/12/24 09:16 Pulse Ox 96 12/12/24 09:16 Oxygen Delivery Method Room Air 12/12/24 09:16 BMI result Body Mass Index 26.3 Assessment & Plan Assessment & Plan (1) Cough: Code(s): R05.9 - Cough, unspecified Qualifiers: Cough type: acute Qualified Code(s): R05.1 - Acute cough Plan Most likely URI vs bronchitis vs covid vs flu vs CAP Plan - Prescribe antibiotics for suspected bacterial infection. - Prescribe cough medicine to manage symptoms. - Prescribe prednisone to reduce inflammation and improve breathing. - Medications to be sent to the patient's pharmacy. - VSS, pt well appearing - Follow up with PCP Medications: New benzonatate 100 mg PO bid-tid PRN 21 caps 0RF Cough 7 days azithromycin For 250 mg dose pack: take 500 mg today (day 1), then 250 mg for 4 days (days 2-5) PO 6 tabs 0RF prednisone 40 mg (2 x 20 mg) PO DAILY 10 tabs 0RF 5 days Coding Level of Care Code Est Pt Level 3 (15801) Diagnoses Acute cough R05.1 Cough type: acute
[2024-12-12 09:16] VITALS: BP 124/70; PULSE 95; TEMP 37; O2SAT 96; BMI 26.3
== END 2024-12-12 09:45 | disposition home or self-care (01) ==
PROVIDERS: PCP Internal Medicine; Visit Provider Physician Assistant Medical
DX: R05.1 Acute cough (principal)

== ENCOUNTER → 2024-12-12 08:28 | Outpatient (BNVA) | payer MEDICARE, SELFPAY | PROVIDERS: PCP Internal Medicine | DX: R05.1 Acute cough (principal) | CPT/HCPCS: 99212 ==

== ENCOUNTER 2025-02-20 07:42 | Outpatient (REF) | payer MEDICARE, SELFPAY ==
--- OUTSIDE RECORDS SUMMARY | 2025-02-20 07:45 | XMS_ITS | Patient Health Record ---
Author Organization [facility] Address [address] [place] [address] Care Team Providers Care Seo Specialist Name Role Phone Kristina ENCISO, Lucy Primary Care Provider U chandra Johnston Talon Unavailable [phone] Reason For Referral No Information Medications Medication [...] Status W/U Status Risk Notes Problem Constipation (19427577) Unspecified constipation (564.00) Active confirmed Problem Digestive system symptom (711821601) Other symptoms involving digestive system (787.99) Active confirmed Problem History of polyp of colon (situation) (197919663) Personal history of colonic polyps (V12.72) Active confirmed Problem Change in bowel habit (51147646) Change in bowel habits (787.99) Active confirmed Problem Screening for malignant neoplasm of colon (755716923) Screening for colorectal cancer (V76.51) Active confirmed Problem History of adenomatous polyp of colon (024900640) History of adenomatous polyp of colon (V12.72) Active confirmed Plan Of Treatment Future Test Test Name Order Date COLONOSCOPY 08/31/2013 Insurance Providers Payer Name Payer Address Payer Phone Subscriber Number Group Number Insured Name Patient Relationship to Insured Coverage Start Date Coverage End Date [facility] [address] [place] [phone] [id number] CONOR GUERRIER Self - patient is the insured Medical (General) History Medical History History ICD Code 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
[2025-02-20 14:03] LABS: MANUAL DIFF FLAG NO
[2025-02-20 14:06] LABS: Hematocrit 41.6 % (37.0-47.0); Hemoglobin 13.5 g/dl (12.0-16.0); Imm Gran Abs Auto 0.04 X10*3/uL (0.00-0.03); Imm Gran Pct Auto 0.5 % (0.0-0.4); Lymphocytes Absolute Auto 2.2 X10*3/uL (1.2-4.9); Mean Corpuscular HGB Conc 32.5 g/dl (31.0-35.0); Mean Corpuscular Hemoglobin 32.2 pg (27.0-33.0); Mean Corpuscular Volume 99.3 fL (80.0-98.0); NRBC Abs Auto 0.000 X10*3/uL (0.0-0.012); NRBC Pct Auto 0.0 /100WBC (0.0-0.2); Platelet Count 346 X10*3/uL (160-400); Red Blood Count 4.19 X10*6/uL (4.20-5.50); White Blood Count 8.2 X10*3/uL (4.8-10.8)
[2025-02-20 15:01] LABS: Alanine Aminotransferase 22 U/L (0-31); Anion Gap 10 (12-20); Aspartate Amino Transferase 21 U/L (5-31); Blood Urea Nitrogen 17 mg/dL (9-16); Calcium 9.7 mg/dL (8.4-10.2); Carbon Dioxide 28 mmol/L (22-29); Chloride 111 mmol/L (96-108); Cholesterol 174 mg/dL (<200); Estimated Glomerular Filt Rate > 60; HDL Cholesterol 49 mg/dL (>40); Potassium 4.1 mmol/L (3.3-5.1); Sodium 145 mmol/L (135-145); Triglycerides 108 mg/dL (<150)
== END 2025-02-20 07:43 | disposition home or self-care (01) ==
LOC: HO.HMGCLDS 07:42
PROVIDERS: PCP Internal Medicine; Visit Provider Internal Medicine
DX: M80.051A Age-related osteoporosis with current pathological fracture, right femur, initial encounter for fracture (principal); I42.9 Cardiomyopathy, unspecified; K64.9 Unspecified hemorrhoids; I10 Essential (primary) hypertension; Z79.01 Long term (current) use of anticoagulants
CPT/HCPCS: 36415; 80048; 80061; 82306; 84450; 84460; 85025

== ENCOUNTER 2025-04-04 09:49 | Outpatient (REF) | payer MEDICARE, SELFPAY ==
--- NOTE | ~2025-04-04 | MM_ITS ---
EXAMINATION: MM SCREENING DIGITAL BREAST TOMOSYNTHESIS, BILATERAL CLINICAL INFORMATION: Screening. Asymptomatic. COMPARISON: Comparison made to multiple prior, most recent March 31, 2024, and most remote November 12, 2017. TECHNIQUE: Digital breast tomosynthesis is performed in mediolateral oblique and craniocaudal views along with computer-aided detection (CAD). Synthesized 2D images are generated from the tomosynthesis. FINDINGS: BREAST COMPOSITION: There are scattered areas of fibroglandular density. BILATERAL BREASTS: No significant masses, suspicious calcifications or other abnormalities are seen in either breast. MM/MM tomosynthesis screening BI IMPRESSION: BILATERAL BREASTS: Negative, no mammographic evidence of malignancy. Normal interval follow-up is recommended in 12 months. ASSESSMENT: BI-RADS: Category 1: Negative RECOMMENDATION: Routine annual mammography screening. FOLLOW-UP: 1 year F/U This examination should not preclude the clinical evaluation of a suspicious palpable abnormality. This patient's information was entered into a reminder system with a target due date for their next mammogram. Electronically signed by: Vianney Matthew MD 04/05/2025 06:49 PM EDT
--- NOTE | ~2025-04-04 | MM_ITS ---
EXAMINATION: DXA BONE DENSITY AXIAL HISTORY: M80.051A - Age-related osteoporosis with current pathological fracture, ... TECHNIQUE: FindProz Dual energy absorptiometry (DEXA) of the lumbar spine, total left hip, and femoral neck was performed. COMPARISON: Comparison is made with the prior examination dated 03/20/2022. FINDINGS: The bone mineral density of the lumbar spine is 1.058 g/cm2, corresponding to a T-score of -1.0, and a Z-score of 0.9. This is indicative of normal bone mineral density. This represents a BMD change of -0.5% compared to the prior exam. This is not statistically significant. The bone mineral density of the left total hip is 0.497 g/cm2, corresponding to a T-score of -4.1, and a Z-score of -2.0. This is indicative of osteoporosis. This represents a BMD change of -10.5% compared to the prior exam. This is statistically significant. The bone mineral density of the left femoral neck is 0.467 g/cm2, corresponding to a T-score of -4.1, and a Z-score of -1.9. This is indicative of osteoporosis. This represents a BMD change of -7.2% compared to the prior exam. FRACTURE RISK: The FRAX index suggests a ten year probability of major osteoporotic fracture of 50.9%, and of hip fracture 28.3%. MM/XR DEXA axial skeleton IMPRESSION: Based on bone mineral density, and according to World Health Organization (WHO) criteria, the diagnosis is consistent with osteoporosis. Statistically, 68% of repeat scans fall within 1 SD (+/- 0.010 g/cm2 for AP spine L1-L4) and 1 SD (+/- 0.012 g/cm2 for femur total) FRAX is a trademark of the [employer] [place] [facility] [employer], a World Health Organization (WHO) Collaborating Center. Electronically signed by: Talon Giraldo MD 04/04/2025 10:32 AM EDT
--- OUTSIDE RECORDS SUMMARY | 2025-04-04 11:13 | XMS_ITS | Patient Health Record ---
Author Organization [facility] Address [address] [place] [address] Care Team Providers Care Hotel Maid Name Role Phone Kristina ENCISO, Lucy Primary Care Provider U chandra Johnston Talon Unavailable [phone] Reason For Referral No Information Medications Medication SIG (Take, Route, Frequency, Duration) Notes Start Date End Date Status Caltrate 600 Active Chondroitin Sulfate Active Glucosamine Active CeleBREX 200mg Activ e Cyclobenzaprine HCl 10mg Active Vitamin C Active OsmoPrep 1.102-0.398 GM as directed Oral ly as directed; Duration: 1 days 09/01/2013 Activ e Vitamin D Active Problems Problem Type SNOMED Code ICD Code Onset Dates Problem Status W/U Status Risk Notes Problem Constipation (96764488) Unspecified constipation (564.00) Active confirmed Problem Digestive system symptom (897913410) Other symptoms involving digestive system (787.99) Active confirmed Problem History of polyp of colon (situation) (963997199) Personal history of colonic polyps (V12.72) Active confirmed Problem Change in bowel habit (28157813) Change in bowel habits (787.99) Active confirmed Problem Screening for malignant neoplasm of colon (954171604) Screening for colorectal cancer (V76.51) Active confirmed Problem History of adenomatous polyp of colon (728832557) History of adenomatous polyp of colon (V12.72) Active confirmed Plan Of Treatment Future Test Test Name Order Date COLONOSCOPY 08/31/2013 Insurance Providers Payer Name Payer Address Payer Phone Subscriber Number Group Number Insured Name Patient Relationship to Insured Coverage Start Date Coverage End Date [facility] [address] [place] [phone] [id number] CONOR GUERRIER Self - patient is the insured Medical (General) History Medical History History ICD Code 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
== END 2025-04-04 09:50 | disposition home or self-care (01) ==
LOC: HO.MAMMO 09:49
PROVIDERS: PCP Internal Medicine; Visit Provider Internal Medicine
DX: Z12.31 Encounter for screening mammogram for malignant neoplasm of breast (principal); Z13.820 Encounter for screening for osteoporosis; M81.0 Age-related osteoporosis without current pathological fracture
CPT/HCPCS: 77063; 77067; 77080

== ENCOUNTER → 2025-04-04 10:00 | Outpatient (BNV) | payer MEDICARE, SELFPAY | PROVIDERS: PCP Internal Medicine; Visit Provider Radiology Diagnostic Radiology | DX: Z12.31 Encounter for screening mammogram for malignant neoplasm of breast (principal) | CPT/HCPCS: 77063; 77067; 77080 ==